=== PATIENT | female | born 1945 | race Caucasian/White ===

== ENCOUNTER 2018-07-21 13:26 | Emergency (ER) | payer SELFPAY ==
[2018-07-21 13:33] VITALS: BP 213/96; PULSE 81; RESP 15; TEMP 36.3; O2SAT 98; BMI 20.5
--- NOTE | 2018-07-21 13:36 | DI.RAD.S_ITS ---
PROCEDURE: XR TOE LT MIN 2V INDICATIONS: fell down stairs, great toe pain and swelling TECHNIQUE: 3 views of the 1st toe(s) acquired. COMPARISON: None. FINDINGS: Bones: No displaced fractures or dislocations. No suspicious bony lesions. Soft tissues: No suspicious soft tissue densities. IMPRESSION: No acute fractures of the left great toe. Dictated by: Shiva Salgado M.D. on 07/21/2018 at 13:01 Approved by: Shiva Salgado M.D. on 07/21/2018 at 13:02
--- NOTE | 2018-07-21 17:57 | ED_ITS ---
HPI - Extremity Injury (Lower) <Gabby Ch PA-C - Last Filed: 07/21/18 22:29> General Chief Complaint: Extremity Injury, Lower Stated Complaint: FELL ON STAIRS,POSS BROKEN TOE Time Seen by Provider: 07/21/18 16:02 Source: patient Mode of arrival: ambulatory Limitations: no limitations History of Present Illness HPI Narrative: This 72-year-old female states that she slipped on some steps this morning and hit her left great toe when she fell. She states that she landed on her bottom. She denies any other injuries such as head contusion, LOC, or neck pain. She states that her right shoulder is just a little bit sore, which she thinks is due to reaching out trying to grab the railing on the way down. She came in due to concern for possible fracture in the toe as it is painful to bear weight. 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 She states her blood pressure is always elevated. Related Data Allergies Allergy/AdvReac Type Severity Reaction Status Date / Time Sulfa (Sulfonamide Allergy Severe ANAPHYLAXIS Verified 07/21/18 13:33 Antibiotics) Review of Systems <Gabby Ch PA-C - Last Filed: 07/21/18 22:29> Review of Systems ROS Unobtainable: All systems reviewed & are unremarkable except as noted in HPI and below PFSH <Gabby Ch PA-C - Last Filed: 07/21/18 22:29> Medical History H/O: HTN (hypertension) (Chronic) No pertinent family history (Chronic) Surgical History No pertinent past surgical history (Chronic) Social History Smoking Status: Former smoker Social History Smoking Status: Former smoker Exam <IVETTE Olivares Last Filed: 07/21/18 22:29> Narrative Exam Narrative: GENERAL APPEARANCE: Patient sitting comfortably, in no distress. LUNGS: Clear to auscultation bilaterally. HEART: Rate and rhythm regular without murmur, normal S1 and S2, no S3 or S4. MUSCULOSKELETAL: There is some joint deviation in the left foot toes. Left great toe is tender at the IP joint. No tenderness elsewhere over the toe. No tenderness elsewhere over the left metatarsals or ankle. She has full range of motion of the ankle, full dorsiflexion and plantar flexion of the toes against resistance. Achilles is intact by palpation and nontender. Mild tenderness over the right mid and superior trapezius musculature, no tenderness over bony prominences, full range of motion of the shoulder EXTREMITIES: No cyanosis, 1+ pitting noted bilaterally with some varicosities, no calf tenderness Initial Vital Signs Initial Vital Signs: Vital Signs Temperature 97.3 F L 07/21/18 13:33 Pulse Rate 81 07/21/18 13:33 Respiratory Rate 15 07/21/18 13:33 Blood Pressure 213/96 H 07/21/18 13:33 Pulse Oximetry 98 07/21/18 13:33 <DO Curt Jackson Last Filed: 07/22/18 02:48> Initial Vital Signs Initial Vital Signs: Vital Signs Temperature 97.3 F L 07/21/18 13:33 Pulse Rate 81 07/21/18 13:33 Respiratory Rate 15 07/21/18 13:33 Blood Pressure 213/96 H 07/21/18 13:33 Pulse Oximetry 98 07/21/18 13:33 Course <Gabby Ch PA-C - Last Filed: 07/21/18 22:29> Orders Ordered: ED Orders 07/21/18 13:36 XR toe LT min 2V Stat Vital Signs - 8 hr 07/21/18 18:20 Pulse Rate 73 Respiratory Rate 16 Blood Pressure [Left Arm] 229/108 H Pulse Oximetry 97 <DO Curt Jackson Last Filed: 07/22/18 02:48> Orders Ordered: ED Orders 07/21/18 13:36 XR toe LT min 2V Stat Vital Signs - 8 hr 07/21/18 18:20 Pulse Rate 73 Respiratory Rate 16 Blood Pressure [Left Arm] 229/108 H Pulse Oximetry 97 MDM - Extremity Injury (Lower) <IVETTE Olivares Last Filed: 07/21/18 22:29> Imaging Data foot: Radiologist's impression: Tiffany Yanez 72 F [address] [address] XRay Report Signed Patient: RenataTiffany RMR#: [id number] : [id number]:[id number] Age/Sex: 72 / FDate of Service: 07/21/18 Loc: ED Accession Number: [id number] Procedure: XR toe LT min 2V Ordering Provider: Juancarlos Orozco D.O. PROCEDURE: XR TOE LT MIN 2V INDICATIONS: fell down stairs, great toe pain and swelling TECHNIQUE: 3 views of the 1st toe(s) acquired. COMPARISON: None. FINDINGS: Bones: No displaced fractures or dislocations. No suspicious bony lesions. Soft tissues: No suspicious soft tissue densities. IMPRESSION: No acute fractures of the left great toe. Dictated by: Shiva Salgado M.D. on 07/21/2018 at 13:01 Approved by: Shiva Salgado M.D. on 07/21/2018 at 13:02 Discharge Plan Departure Patient Disposition: Home Clinical Impression: Contusion of great toe of left foot Qualifiers: Encounter type: initial encounter Damage to nail status: without damage Qualified Code(s): S90.112A - Contusion of left great toe without damage to nail, initial encounter Discharge Date/Time: 07/21/18 18:40 Interventions: ED Discharge Assessment Last Done: 07/21/18 18:39 Instructions: DI for Toe Sprain Activity Restrictions/Additional Instructions: Please return if you have any acutely worsening symptoms or new problems. There was no broken bones seen on your x-ray today, however sometimes as we talked about broken bones do not show on initial x-rays and if you are not better next week, repeat x-rays may be needed. Please use your herbal medicine if you need at home that usually use for pain, or you can take [id number] Tylenol. Please keep the toe tape as we showed you and wear the orthopedic shoe to help with pain whenever you are walking. Your blood pressure is quite high, and it is likely that you need to be back on blood pressure medication to help prevent problems associated with high blood pressure such as heart attack and stroke. Please call the [facility] and let them know that you were seen in the ED here and need follow-up (you can let them know that you saw me, I'm Gabby) and they should be able to see you next week to establish care and recheck the toe Referrals: [facility] [Provider Group] <Miley Botnick, DO - Last Filed: 07/22/18 02:48> Cosign ED Attending Cosignature Attestation: I was immediately available in the department for consultation. Documentation has been reviewed. I agree with assessment and plan.
[2018-07-21 18:20] VITALS: BP 229/108; PULSE 73; RESP 16; O2SAT 97
== END 2018-07-21 18:40 | disposition home or self-care (01) ==
PROVIDERS: Emergency Provider Internal Medicine
DX: S90.112A Contusion of left great toe without damage to nail, initial encounter (principal); W01.0XXA Fall on same level from slipping, tripping and stumbling without subsequent striking against object, initial encounter
CPT/HCPCS: 73660; 99282; 99283

== ENCOUNTER 2019-07-29 14:03 | Inpatient (IN) | payer MEDICARE, SELFPAY ==
[2019-07-29] VITALS (8 sets, daily range): BP systolic 149–211; BP diastolic 75–99; PULSE 83–119; RESP 19–35; TEMP 37.7–38.6; O2SAT 88–95; BMI 20.5
--- NOTE | 2019-07-29 14:25 | DI.RAD.S_ITS ---
PROCEDURE: XR CHEST 2V INDICATIONS: sob, fever cough TECHNIQUE: 2 views of the chest were acquired. COMPARISON: None. FINDINGS: Surgical changes and devices: None. Lungs and pleura: Increased attenuation is identified along the minor fissure on the right, which appears to represent airspace disease. There may be mild airspace disease at the left costophrenic angle at the retrocardiac region at the left lung base. Pulmonary hyperexpansion is present with flattening of the diaphragms and increased lucency within the retrosternal clear space, compatible with chronic obstructive pulmonary disease. No effusion or pneumothorax is evident. Mediastinum: Mediastinal contours are normal. Heart size is normal. There is a large soft tissue density with a fluid level identified overlying the mediastinum at the lung base. Bones and chest wall: No suspicious bony abnormalities. Soft tissues appear unremarkable. IMPRESSION: 1. Bibasilar infiltrates are suggestive of pneumonia. 2. Chronic obstructive pulmonary disease is suspected. 3. Prominent hiatal hernia. Dictated by: Shiva Salgado M.D. on 07/29/2019 at 13:49 Approved by: Shiva Salgado M.D. on 07/29/2019 at 13:50
[2019-07-29 15:03] LABS: Influenza A - CEPHEID Flu A NEGATIVE (NEGATIVE); Influenza B - CEPHEID Flu B NEGATIVE (NEGATIVE)
[2019-07-29] MEDS: ALBUTEROL/IPRATROPIUM 3 ML AMPUL INH (16:15)
[2019-07-29 16:55] LABS: Alanine Aminotransferase 17 IU/L (<35); Albumin Globulin Ratio 1.1 (1.0-2.8); Alkaline Phosphatase 89 U/L (38-126); Aspartate Aminotransferase 29 IU/L (14-36); Bilirubin Total 1.2 mg/dL (0.2-1.3); Blood Urea Nitrogen 14 mg/dL (7-17); Calcium 9.2 mg/dL (8.4-10.2); Carbon Dioxide 22 mmol/L (22-32); Chloride 100 mmol/L (98-107); Estimated Glomerular Filt Rate > 60.0 mL/min (>60); Globulin 3.6 g/dL (1.7-4.1); Glucose 95 mg/dL (80-110); HEMOLYSIS < 15 (0-50); Magnesium 2.2 mg/dL (1.6-2.3); Potassium 3.9 mmol/L (3.4-5.1); Sodium 138 mmol/L (137-145); Total Protein 7.6 g/dL (6.3-8.2)
[2019-07-29 16:57] LABS: Add Manual Diff / Slide Review NO; Basophils Absolute Auto 0 /uL (0-100); Basophils Percent Auto 0.1 % (0-2); Eosinophils Absolute Auto 0 /uL (0-450); Hematocrit 42.3 % (36-46); Hemoglobin 14.9 g/dL (12.0-16.0); Lymphocytes Absolute Auto 400 /uL (1100-4500); Lymphocytes Percent Auto 4.6 % (25-40); Mean Corpuscular HGB Conc 35.1 % (30-36); Mean Corpuscular Hemoglobin 33.1 PG (26-34); Mean Corpuscular Volume 94.3 fL (80-100); Monocytes Absolute Auto 600 /uL (0-900); Monocytes Percent Auto 6.4 % (3-14); Neutrophils Absolute Auto 7800 /uL (1500-7000); Neutrophils Percent Auto 88.9 % (50-75); Platelet Count 196 X10^3/uL (150-400); Red Blood Cell Count 4.49 X10^6/uL (4.0-5.2); Red Cell Distribution Width 12.6 % (11.6-14.8); White Blood Cell Count 8.7 X10^3/uL (4.5-11.0)
[2019-07-29 17:04] LABS: NT-proBNP (BNP-Adult 18+) 140 pg/mL (<125)
[2019-07-29 17:11] LABS: Procalcitonin 0.35 ng/mL (<0.5)
[2019-07-29] MEDS: methylPREDNISolone 125 MG/2 ML VIAL 80 MG IV (17:19)
[2019-07-29] MEDS: AZITHROMYCIN 500 MG in DEXTROSE 5% IN WATER 250 ML IV (17:20)
[2019-07-29] MEDS: CEFTRIAXONE 1 GM/50 ML FROZ.PIGGY IV ×2 (17:21→21:31)
[2019-07-29 17:55] LABS: Lactate (Lactic Acid) 1.2 mmol/L (0.7-2.1)
[2019-07-29] MEDS: KETOROLAC 60 MG/2 ML VIAL 30 MG IV (18:07)
--- NOTE | 2019-07-29 18:28 | ED_ITS ---
HPI - Fever <[facility] - Last Filed: 07/29/19 18:57> General Chief Complaint: Fever Stated Complaint: Flu Like Symptoms Time Seen by Provider: 07/29/19 15:53 Source: patient and family Mode of arrival: Ambulatory Limitations: no limitations History of Present Illness HPI Narrative: The patient is a 73-year-old female former smoker who denies pertinent medical history presents with a chief complaint of fever, cough and wheezing for the past week. She denies any history of COPD asthma or respiratory disease. She denies any medical history, surgical history or daily medications. 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 Daughter notes that she is supposed to be taking medication for high blood pressure, but has not done so in a very long time. She states she is having muscle aches, chills, and fevers. She has not taken an ything at home to feel better. She denies any abdominal pain, nausea vomiting or diarrhea. She states she is eating and drinking okay. She presents with her daughter, and her granddaughter comes to visit as well. Related Data Home Medications Medication Instructions Recorded Confirmed No Known Home Medications 07/29/19 07/29/19 Allergies Allergy/AdvReac Type Severity Reaction Status Date / Time Sulfa (Sulfonamide Allergy Severe ANAPHYLAXIS Verified 07/29/19 14:24 Antibiotics) Penicillins AdvReac Unknown unknown Unverified 07/29/19 18:03 Review of Systems <[facility] - Last Filed: 07/29/19 18:57> Review of Systems Narrative: GENERAL: See HPI HEENT: Denies sinus pain, ear pain, sore throat, difficulty swallowing, dizziness. RESPIRATORY: See HPI CARDIOVASCULAR: Denies chest pain, palpitations, orthopnea, edema, GASTROINTESTINAL: Denies nausea, vomiting, abdominal pain, diarrhea, constipation, melena. : Denies dysuria, frequency, incontinence, hematuria, urinary retention. MUSCULOSKELETAL: denies weakness, joint pain, or bony pain SKIN: Denies rash, skin lesions, or other NEUROLOGIC: Denies weakness, headache, numbness, change in speech, confusion, seizures, incoordination. PSYCHIATRIC: No concerning psychosocial issues. 12 point review of systems is negative except for those stated above Patient History <[facility] - Last Filed: 07/29/19 18:57> Medical History H/O: HTN (hypertension) (Chronic) Palpitations (Acute) Surgical History No pertinent past surgical history (Chronic) Family History (Updated 07/29/19 @ 21:50 by SLOANE Hoffmann) Father Cardiac disease Mother No significant medical problems Social History (Updated 07/21/18 @ 18:30 by Gabby Ch PA-C) household members: family Smoking Status: Former smoker Smoking Status: Former smoker alcohol intake frequency: holidays/special occasions only Substance Use Type: does not use Exam <Lizbeth ClearyKEISHA-BC - Last Filed: 07/29/19 18:57> Narrative Exam Narrative: GENERAL: Elderly female lying on stretcher, appears fatigued HEAD: Atraumatic. Normocephalic. No temporal or scalp tenderness. EYES: Pupils equal round and reactive. Extraocular motions intact. No scleral icterus. No injection or drainage. ENT: Nose without bleeding, purulent drainage or septal hematoma. Throat without erythema, tonsillar hypertrophy or exudate. Uvula midline. Airway patent. NECK: Trachea midline. No JVD or lymphadenopathy. Supple, nontender, no meningeal signs. CARDIOVASCULAR: Tachycardic rate and i regular rhythm RESPIRATORY: Coarse bilaterally to auscultation. Posterior crackles bilateral lower lobes. Tachypneic. Not speaking full sentences. Profuse loose sounding cough. GASTROINTESTINAL: Abdomen soft, non-tender, nondistended. No hepato- splenomegaly, or palpable masses. No guarding. Active bowel sounds all 4 quadrants. EXTREMITIES: No clubbing, cyanosis, or edema. No joint tenderness, effusion, or edema noted. BACK: Nontender without deformity or crepitance. No flank tenderness. NEURO: AOx3. SKIN: No rash or erythema on visible skin Initial Vital Signs Initial Vital Signs: Vital Signs Temperature 101.4 F H 07/29/19 14:18 Pulse Rate 119 H 07/29/19 14:18 Respiratory Rate 20 07/29/19 14:18 Blood Pressure 211/99 H 07/29/19 14:18 Pulse Oximetry 91 07/29/19 14:18 <Juancarlos Orozco DO - Last Filed: 07/30/19 07:21> Initial Vital Signs Initial Vital Signs: Vital Signs Temperature 101.4 F H 07/29/19 14:18 Pulse Rate 119 H 07/29/19 14:18 Respiratory Rate 07/29/19 14:18 Blood Pressure 211/99 H 07/29/19 14:18 Pulse Oximetry 91 07/29/19 14:18 Scores <KAREN Myrick - Last Filed: 07/29/19 18:57> CURB-65 Confusion: No BUN >19mg/dL (>7mmol/L): No Respiratory rate greater or equal to 30: Yes SBP <90mmHg or DBP less or equal to 60mmHg: No Age 65 or Older: Yes CURB-65 Total: 2 Score 0-1 Outpatient care, Score 2 Inpt vs. Obs, Score 3 or over Inpt admit with ICU for score of 4-5 Course <KAREN Myrick - Last Filed: 07/29/19 18:57> Orders Ordered: Acetaminophen (Tylenol) 650 mg PO Q6HR PRN PRN Reason: Fever/Mild Pain (1-3) Al Hydrox/Mg Hydrox/Simethicone (Maalox Plus) 30 ml PO Q6HR PRN PRN Reason: Dyspepsia Albuterol (Ventolin) 2.5 mg INH [id number] PRN PRN Reason: Shortness Of Breath Or Wheezing Albuterol/Ipratropium (Duoneb) 3 ml INH RTQ6HR PRN PRN Reason: Shortness Of Breath Or Wheezing Bisacodyl (Dulcolax) 10 mg IN DAILY PRN PRN Reason: Constipation Calcium Carbonate (Tums) 1,000 mg PO Q4HR PRN PRN Reason: Dyspepsia Docusate Sodium (Colace) 100 mg PO BID PRN PRN Reason: Constipation Enoxaparin Sodium (Lovenox) 40 mg SUBCUT DAILY [facility] Ceftriaxone Sodium/Dextrose (Rocephin) 2 gm in 50 mls @ 100 mls/hr IV Q24H JOVANA Azithromycin 500 mg/ Dextrose 250 mls @ 250 mls/hr IV Q24H JOVANA Stop: 07/31/19 18:59 Naloxone HCl (Narcan) 0.2 mg IV Q2MIN PRN PRN Reason: Opiate Reversal Ondansetron HCl (Zofran) 4 mg IV Q8HR PRN PRN Reason: Nausea And Vomiting Oxycodone HCl (Percolone) 5 mg PO Q6HR PRN PRN Reason: Pain, Moderate (4-6) Discontinued Medications Albuterol/Ipratropium (Duoneb) 3 ml INH NOW ONE Stop: 07/29/19 16:02 Last Admin: 07/29/19 16:15 Dose: 3 ml Documented by: FRANCISCO Ceftriaxone Sodium/Dextrose (Rocephin) 1 gm in 50 mls @ 100 mls/hr IV NOW ONE Stop: 07/29/19 17:16 Last Infusion: 07/29/19 18:10 Dose: 0 mls/hr Documented by: Admin: 07/29/19 17:21 Dose: 100 mls/hr Documented by: MEISENB Azithromycin 500 mg/ Dextrose 250 mls @ 250 mls/hr IV NOW ONE Stop: 07/29/19 17:00 Last Infusion: 07/29/19 18:34 Dose: 0 mls/hr Documented by: Admin: 07/29/19 17:20 Dose: 250 mls/hr Documented by: MEISENB Sodium Chloride (Normal Saline 0.9%) 1,000 mls @ 150 mls/hr IV CONT JOVANA Last Infusion: 07/29/19 21:32 Dose: 0 mls/hr Documented by: Admin: 07/29/19 19:46 Dose: 150 mls/hr Documented by: GPEREZ Sodium Chloride (Normal Saline 0.9%) 500 mls @ 1,000 mls/hr IV BOLUS ONE Stop: 07/29/19 18:47 Last Infusion: 07/29/19 18:49 Dose: 1,000 mls/hr Documented by: Admin: 07/29/19 18:38 Dose: 1,000 mls/hr Documented by: MEISENB Sodium Chloride (Normal Saline 0.9%) 1,000 mls @ 100 mls/hr IV CONT JOVANA Last Admin: 07/29/19 21:32 Dose: 100 mls/hr Documented by: GPEREZ Azithromycin 500 mg/ Dextrose 250 mls @ 250 mls/hr IV Q24H JOVANA Stop: 07/30/19 20:16 Last Admin: 07/29/19 22:03 Dose: Not Given Documented by: JEISON Ceftriaxone Sodium/Dextrose (Rocephin) 1 gm in 50 mls @ 100 mls/hr IV NOW ONE Stop: 07/29/19 20:42 Last Infusion: 07/29/19 22:01 Dose: 0 mls/hr Documented by: Admin: 07/29/19 21:31 Dose: 100 mls/hr Documented by: JEISON Ceftriaxone Sodium/Dextrose (Rocephin) 1 gm in 50 mls @ 100 mls/hr IV NOW ONE Stop: 07/29/19 22:34 Last Admin: 07/29/19 23:20 Dose: Not Given Documented by: JEISON Ketorolac Tromethamine (Toradol) 30 mg IV NOW ONE Stop: 07/29/19 17:44 Last Admin: 07/29/19 18:07 Dose: 30 mg Documented by: MIKE Methylprednisolone (Solu-Medrol 125 Mg Vial) 80 mg IV NOW ONE Stop: 07/29/19 16:47 Last Admin: 07/29/19 17:19 Dose: 80 mg Documented by: MIKE Vital Signs Vital signs: Vital Signs - 8 hr 07/29/19 14:18 07/29/19 16:15 07/29/19 16:18 Temperature 101.4 F H 100.1 F H Pulse Rate 119 H 107 H Respiratory Rate 20 Blood Pressure 211/99 H Blood Pressure [Left Arm] 189/83 H Pulse Oximetry 91 88 L 90 L 07/29/19 16:23 07/29/19 16:38 07/29/19 17:55 Temperature 101.1 F H Pulse Rate 112 H 109 H 103 H Respiratory Rate 22 35 H 28 H Blood Pressure Blood Pressure [Left Arm] 168/75 H 170/77 H Pulse Oximetry 93 92 <Juancarlos Orozco DO - Last Filed: 07/30/19 07:21> Orders Ordered: Acetaminophen (Tylenol) 650 mg PO Q6HR PRN PRN Reason: Fever/Mild Pain (1-3) Al Hydrox/Mg Hydrox/Simethicone (Maalox Plus) 30 ml PO Q6HR PRN PRN Reason: Dyspepsia Albuterol (Ventolin) 2.5 mg INH [id number] PRN PRN Reason: Shortness Of Breath Or Wheezing Albuterol/Ipratropium (Duoneb) 3 ml INH RTQ6HR PRN PRN Reason: Shortness Of Breath Or Wheezing Bisacodyl (Dulcolax) 10 mg IN DAILY PRN PRN Reason: Constipation Calcium Carbonate (Tums) 1,000 mg PO Q4HR PRN PRN Reason: Dyspepsia Docusate Sodium (Colace) 100 mg PO BID PRN PRN Reason: Constipation Enoxaparin Sodium (Lovenox) 40 mg SUBCUT DAILY [facility] Ceftriaxone Sodium/Dextrose (Rocephin) 2 gm in 50 mls @ 100 mls/hr IV Q24H JOVANA Azithromycin 500 mg/ Dextrose 250 mls @ 250 mls/hr IV Q24H [facility] Stop: 07/31/19 18:59 Naloxone HCl (Narcan) 0.2 mg IV Q2MIN PRN PRN Reason: Opiate Reversal Ondansetron HCl (Zofran) 4 mg IV Q8HR PRN PRN Reason: Nausea And Vomiting Oxycodone HCl (Percolone) 5 mg PO Q6HR PRN PRN Reason: Pain, Moderate (4-6) Discontinued Medications Albuterol/Ipratropium (Duoneb) 3 ml INH NOW ONE Stop: 07/29/19 16:02 Last Admin: 07/29/19 16:15 Dose: 3 ml Documented by: FRANCISCO Ceftriaxone Sodium/Dextrose (Rocephin) 1 gm in 50 mls @ 100 mls/hr IV NOW ONE Stop: 07/29/19 17:16 Last Infusion: 07/29/19 18:10 Dose: 0 mls/hr Documented by: Admin: 07/29/19 17:21 Dose: 100 mls/hr Documented by: MIKE Azithromycin 500 mg/ Dextrose 250 mls @ 250 mls/hr IV NOW ONE Stop: 07/29/19 17:00 Last Infusion: 07/29/19 18:34 Dose: 0 mls/hr Documented by: Admin: 07/29/19 17:20 Dose: 250 mls/hr Documented by: MIKE Sodium Chloride (Normal Saline 0.9%) 1,000 mls @ 150 mls/hr IV CONT JOVANA Last Infusion: 07/29/19 21:32 Dose: 0 mls/hr Documented by: Admin: 07/29/19 19:46 Dose: 150 mls/hr Documented by: JEISON Sodium Chloride (Normal Saline 0.9%) 500 mls @ 1,000 mls/hr IV BOLUS ONE Stop: 07/29/19 18:47 Last Infusion: 07/29/19 18:49 Dose: 1,000 mls/hr Documented by: Admin: 07/29/19 18:38 Dose: 1,000 mls/hr Documented by: MIKE Sodium Chloride (Normal Saline 0.9%) 1,000 mls @ 100 mls/hr IV CONT JOVANA Last Admin: 07/29/19 21:32 Dose: 100 mls/hr Documented by: JEISON Azithromycin 500 mg/ Dextrose 250 mls @ 250 mls/hr IV Q24H JOVANA Stop: 07/30/19 20:16 Last Admin: 07/29/19 22:03 Dose: Not Given Documented by: JEISON Ceftriaxone Sodium/Dextrose (Rocephin) 1 gm in 50 mls @ 100 mls/hr IV NOW ONE Stop: 07/29/19 20:42 Last Infusion: 07/29/19 22:01 Dose: 0 mls/hr Documented by: Admin: 07/29/19 21:31 Dose: 100 mls/hr Documented by: JEISON Ceftriaxone Sodium/Dextrose (Rocephin) 1 gm in 50 mls @ 100 mls/hr IV NOW ONE Stop: 07/29/19 22:34 Last Admin: 07/29/19 23:20 Dose: Not Given Documented by: JEISON Ketorolac Tromethamine (Toradol) 30 mg IV NOW ONE Stop: 07/29/19 17:44 Last Admin: 07/29/19 18:07 Dose: 30 mg Documented by: MIKE Methylprednisolone (Solu-Medrol 125 Mg Vial) 80 mg IV NOW ONE Stop: 07/29/19 16:47 Last Admin: 07/29/19 17:19 Dose: 80 mg Documented by: MIKE Vital Signs Vital signs: Vital Signs - 8 hr 07/29/19 14:18 07/29/19 16:15 07/29/19 16:18 Temperature 101.4 F H 100.1 F H Pulse Rate 119 H 107 H Respiratory Rate 20 Blood Pressure 211/99 H Blood Pressure [Left Arm] 189/83 H Pulse Oximetry 91 88 L 90 L 07/29/19 16:23 07/29/19 16:38 07/29/19 17:55 Temperature 101.1 F H Pulse Rate 112 H 109 H 103 H Respiratory Rate 22 35 H 28 H Blood Pressure Blood Pressure [Left Arm] 168/75 H 170/77 H Pulse Oximetry 93 92 MDM - Fever <Lizbeth Dunlapmer, LEGAL RECORDS CLERK- - Last Filed: 07/29/19 18:57> Lab Data Result diagrams: 07/30/19 05:29 07/30/19 05:29 Labs: Lab Results 07/29/19 07/29/19 07/29/19 Range/Units 14:28 16:20 16:25 WBC (4.5-11.0) X10^3/uL RBC (4.0-5.2) X10^6/uL Hgb (12.0-16.0) g/dL Hct (36-46) % MCV (80-100) fL MCH (26-34) PG MCHC (30-36) % RDW (11.6-14.8) % Plt Count (150-400) X10^3/uL Neut % (Auto) (50-75) % Lymph % (Auto) (25-40) % [place] % (Auto) (3-14) % Eos % (Auto) (2-4) % Baso % (Auto) (0-2) % Neut # (Auto) (9635-2613) /uL Lymph # (Auto) (1390-5120) /uL [place] # (Auto) (0-900) /uL Eos # (Auto) (0-450) /uL Baso # (Auto) (0-100) /uL Sodium (137-145) mmol/L Potassium (3.4-5.1) mmol/L Chloride (98-107) mmol/L Carbon Dioxide (22-32) mmol/L BUN (7-17) mg/dL Creatinine (0.52-1.04) mg/dL Estimated GFR (>60) mL/min BUN/Creatinine Ratio (6-22) Glucose (80-110) mg/dL Lactate 1.2 (0.7-2.1) mmol/L Calcium (8.4-10.2) mg/dL Magnesium (1.6-2.3) mg/dL Total Bilirubin (0.2-1.3) mg/dL AST (14-36) IU/L ALT (<35) IU/L Alkaline Phosphatase (38-126) U/L NT-Pro-B Natriuret Pep 140 H (<125) pg/mL Total Protein (6.3-8.2) g/dL Albumin (3.5-5.0) g/dL Globulin (1.7-4.1) g/dL Albumin/Globulin Ratio (1.0-2.8) Procalcitonin (<0.5) ng/mL Influenza A (RT-PCR) Flu a negative (NEGATIVE) Influenza B (RT-PCR) Flu b negative (NEGATIVE) 07/29/19 07/29/19 07/29/19 Range/Units 16:25 16:25 16:25 WBC 8.7 (4.5-11.0) X10^3/uL RBC 4.49 (4.0-5.2) X10^6/uL Hgb 14.9 (12.0-16.0) g/dL Hct 42.3 (36-46) % MCV 94.3 (80-100) fL MCH 33.1 (26-34) PG MCHC 35.1 (30-36) % RDW 12.6 (11.6-14.8) % Plt Count 196 (150-400) X10^3/uL Neut % (Auto) 88.9 H (50-75) % Lymph % (Auto) 4.6 L (25-40) % [place] % (Auto) 6.4 (3-14) % Eos % (Auto) 0.0 L (2-4) % Baso % (Auto) 0.1 (0-2) % Neut # (Auto) 7800 H (5452-0258) /uL Lymph # (Auto) 400 L (0141-5658) /uL [place] # (Auto) 600 (0-900) /uL Eos # (Auto) 0 (0-450) /uL Baso # (Auto) 0 (0-100) /uL Sodium 138 (137-145) mmol/L Potassium 3.9 (3.4-5.1) mmol/L Chloride 100 (98-107) mmol/L Carbon Dioxide 22 (22-32) mmol/L BUN 14 (7-17) mg/dL Creatinine 0.70 (0.52-1.04) mg/dL Estimated GFR > 60.0 (>60) mL/min BUN/Creatinine Ratio 20.0 (6-22) Glucose 95 (80-110) mg/dL Lactate (0.7-2.1) mmol/L Calcium 9.2 (8.4-10.2) mg/dL Magnesium 2.2 (1.6-2.3) mg/dL Total Bilirubin 1.2 (0.2-1.3) mg/dL AST 29 (14-36) IU/L ALT 17 (<35) IU/L Alkaline Phosphatase 89 (38-126) U/L NT-Pro-B Natriuret Pep (<125) pg/mL Total Protein 7.6 (6.3-8.2) g/dL Albumin 4.0 (3.5-5.0) g/dL Globulin 3.6 (1.7-4.1) g/dL Albumin/Globulin Ratio 1.1 (1.0-2.8) Procalcitonin 0.35 (<0.5) ng/mL Influenza A (RT-PCR) (NEGATIVE) Influenza B (RT-PCR) (NEGATIVE) Imaging Data Chest x-ray: Radiologist's Impression: [address] [place], [place] [id number] XRay Report Signed Patient: Tiffany Yanez RMR#: [id number] : 7Acct:[id number] Age/Sex: 73 / FDate of Service: 07/29/19 Loc: ED Accession Number: [id number] Procedure: XR chest 2V Ordering Provider: Juancarlos Orozco D.O. PROCEDURE: XR CHEST 2V INDICATIONS: sob, fever cough TECHNIQUE: 2 views of the chest were acquired. COMPARISON: None. FINDINGS: Surgical changes and devices: None. Lungs and pleura: Increased attenuation is identified along the minor fissure on the right, which appears to represent airspace disease. There may be mild airspace disease at the left costophrenic angle at the retrocardiac region at the left lung base. Pulmonary hyperexpansion is present with flattening of the diaphragms and increased lucency within the retrosternal clear space, compatible with chronic obstructive pulmonary disease. No effusion or pneumothorax is evident. Mediastinum: Mediastinal contours are normal. Heart size is normal. There is a large soft tissue density with a fluid level identified overlying the mediastinum at the lung base. Bones and chest wall: No suspicious bony abnormalities. Soft tissues appear unremarkable. IMPRESSION: 1. Bibasilar infiltrates are suggestive of pneumonia. 2. Chronic obstructive pulmonary disease is suspected. 3. Prominent hiatal hernia. Dictated by: Shiva Salgado M.D. on 07/29/2019 at 13:49 Approved by: Shiva Salgado M.D. on 07/29/2019 at 13:50 [facility] Narrative Medical decision making narrative: The patient is a 73-year-old female who presents with a chief complaint of fever, productive cough and wheezing for the past week. Influenza is negative. Chest x-ray indicates bibasilar pneumonia. Patient is tachypneic, with shortness of breath on exam. Her initial room oxygen was 90%, then while waiting to come back to the emergency department her oxygen decreased. Upon arrival to her room she was 87-88% on room air, even with breathing could itching. She was initiated on 2 L nasal cannula. She was given nebulizers and evaluated by respiratory therapy. She was given Solu- Medrol. She does negative for the flu, but viral panel is pending. Given that the patient has a community-acquired pneumonia with no recent hospitalizations I did initiate treatment with Rocephin and azithromycin. Given that the patient is hypoxic on room air, as well as score of 2 due to age and tachypnea I contacted Dr. Calloway who kindly agreed to admit the patient for observation overnight. Patient and her family are in accordance with this and very appre ciative <Juancarlos Orozco, - Last Filed: 07/30/19 07:21> Lab Data Labs: Lab Results 07/29/19 07/29/19 07/29/19 Range/Units 14:28 16:20 16:25 WBC (4.5-11.0) X10^3/uL RBC (4.0-5.2) X10^6/uL Hgb (12.0-16.0) g/dL Hct (36-46) % MCV (80-100) fL MCH (26-34) PG MCHC (30-36) % RDW (11.6-14.8) % Plt Count (150-400) X10^3/uL Neut % (Auto) (50-75) % Lymph % (Auto) (25-40) % [place] % (Auto) (3-14) % Eos % (Auto) (2-4) % Baso % (Auto) (0-2) % Neut # (Auto) (8584-6587) /uL Lymph # (Auto) (9518-1857) /uL [place] # (Auto) (0-900) /uL Eos # (Auto) (0-450) /uL Baso # (Auto) (0-100) /uL Sodium (137-145) mmol/L Potassium (3.4-5.1) mmol/L Chloride (98-107) mmol/L Carbon Dioxide (22-32) mmol/L BUN (7-17) mg/dL Creatinine (0.52-1.04) mg/dL Estimated GFR (>60) mL/min BUN/Creatinine Ratio (6-22) Glucose (80-110) mg/dL Lactate 1.2 (0.7-2.1) mmol/L Calcium (8.4-10.2) mg/dL Magnesium (1.6-2.3) mg/dL Total Bilirubin (0.2-1.3) mg/dL AST (14-36) IU/L ALT (<35) IU/L Alkaline Phosphatase (38-126) U/L NT-Pro-B Natriuret Pep 140 H (<125) pg/mL Total Protein (6.3-8.2) g/dL Albumin (3.5-5.0) g/dL Globulin (1.7-4.1) g/dL Albumin/Globulin Ratio (1.0-2.8) Procalcitonin (<0.5) ng/mL Influenza A (RT-PCR) Flu a negative (NEGATIVE) Influenza B (RT-PCR) Flu b negative (NEGATIVE) 07/29/19 07/29/19 07/29/19 Range/Units 16:25 16:25 16:25 WBC 8.7 (4.5-11.0) X10^3/uL RBC 4.49 (4.0-5.2) X10^6/uL Hgb 14.9 (12.0-16.0) g/dL Hct 42.3 (36-46) % MCV 94.3 (80-100) fL MCH 33.1 (26-34) PG MCHC 35.1 (30-36) % RDW 12.6 (11.6-14.8) % Plt Count 196 (150-400) X10^3/uL Neut % (Auto) 88.9 H (50-75) % Lymph % (Auto) 4.6 L (25-40) % [place] % (Auto) 6.4 (3-14) % Eos % (Auto) 0.0 L (2-4) % Baso % (Auto) 0.1 (0-2) % Neut # (Auto) 7800 H (8638-9755) /uL Lymph # (Auto) 400 L (0381-1798) /uL [place] # (Auto) 600 (0-900) /uL Eos # (Auto) 0 (0-450) /uL Baso # (Auto) 0 (0-100) /uL Sodium 138 (137-145) mmol/L Potassium 3.9 (3.4-5.1) mmol/L Chloride 100 (98-107) mmol/L Carbon Dioxide 22 (22-32) mmol/L BUN 14 (7-17) mg/dL Creatinine 0.70 (0.52-1.04) mg/dL Estimated GFR > 60.0 (>60) mL/min BUN/Creatinine Ratio 20.0 (6-22) Glucose 95 (80-110) mg/dL Lactate (0.7-2.1) mmol/L Calcium 9.2 (8.4-10.2) mg/dL Magnesium 2.2 (1.6-2.3) mg/dL Total Bilirubin 1.2 (0.2-1.3) mg/dL AST 29 (14-36) IU/L ALT 17 (<35) IU/L Alkaline Phosphatase 89 (38-126) U/L NT-Pro-B Natriuret Pep (<125) pg/mL Total Protein 7.6 (6.3-8.2) g/dL Albumin 4.0 (3.5-5.0) g/dL Globulin 3.6 (1.7-4.1) g/dL Albumin/Globulin Ratio 1.1 (1.0-2.8) Procalcitonin 0.35 (<0.5) ng/mL Influenza A (RT-PCR) (NEGATIVE) Influenza B (RT-PCR) (NEGATIVE) Discharge Plan Departure Patient Disposition: Admitted as Observation Clinical Impression: Hypoxia Community acquired pneumonia Qualifiers: Laterality: unspecified laterality Qualified Code(s): J18.9 - Pneumonia, unspecified organism Discharge Date/Time: 07/29/19 18:55 Admit Date/Time: 07/29/19 18:11 Admit Provider: Tomer Calloway
[2019-07-29] MEDS: SODIUM CHLORIDE 0.9% 500 ML 1000 ML IV (18:38)
--- NOTE | 2019-07-29 19:22 | PC.ADMIT ---
[address] Admission Note: The patient,Tiffany Yanez,73 y/o, was given written information regarding hospital policies, unit procedures and contact persons. Pt arrived from ED via stretcher. Ambulated over to bed from stretcher. Pt reports feeling weak. Denies pain. Oriented to room and call system. Bed alarm on for safety. Supportive dtr Jessie at bedside. Patient's smoking status: Former smoker. Vital Signs - 8 hr 07/29/19 14:18 07/29/19 16:15 07/29/19 16:18 Temperature 101.4 F H 100.1 F H Pulse Rate 119 H 107 H Respiratory Rate 20 Blood Pressure 211/99 H Blood Pressure [Left Arm] 189/83 H Pulse Oximetry 91 88 L 90 L 07/29/19 16:23 07/29/19 16:38 07/29/19 17:55 Temperature 101.1 F H Pulse Rate 112 H 109 H 103 H Respiratory Rate 22 35 H 28 H Blood Pressure Blood Pressure [Left Arm] 168/75 H 170/77 H Pulse Oximetry 93 92 07/29/19 19:00 Temperature 100 F H Pulse Rate 87 Respiratory Rate 19 Blood Pressure 149/89 H Blood Pressure [Left Arm] Pulse Oximetry 95
[2019-07-29] MEDS: SODIUM CHLORIDE 0.9% 1,000 ML 150 ML IV (19:46)
[2019-07-29 20:18] LABS: Adenovirus Not Detected (Not Detect); Bordetella pertussis Not Detected (Not Detect); Chlamydophila pneumoniae Not Detected (Not Detect); Coronavirus 229E Not Detected (Not Detect); Coronavirus HKU1 Not Detected (Not Detect); Coronavirus NL 63 Not Detected (Not Detect); Coronavirus OC43 Not Detected (Not Detect); Human Metapneumovirus Not Detected (Not Detect); Human Rhinovirus/Enterovirus Not Detected (Not Detect); Influenza A Not Detected (Not Detect); Influenza B Not Detected (Not Detect); Mycoplasma pneumoniae Not Detected (Not Detect); Parainfluenza Virus 1 Not Detected (Not Detect); Parainfluenza Virus 2 Not Detected (Not Detect); Parainfluenza Virus 3 Not Detected (Not Detect); Parainfluenza Virus 4 Not Detected (Not Detect); Respiratory Syncytial Virus Detected (Not Detect)
[2019-07-29] MEDS: SODIUM CHLORIDE 0.9% 1,000 ML 100 ML IV (21:32)
--- NOTE | 2019-07-29 21:38 | P.HP_ITS ---
History of Present Illness History of Present Illness Date Patient Seen: 07/29/19 Time Patient Seen: 20:45 Chief complaint: Flu Like Symptoms Narrative: Ms. Tiffany Yanez is a 73-year-old female who appears older than her stated age with a significant medical history only for hypertension there presents to the hospital for shortness of breath. The patient complains of progressive symptoms of shortness of breath with a cough productive for yellow sputum with associated fevers and chills and right chest wall pain that is mildly pleuritic. Patient is a past heavy smoker with an estimated 90 pack year history. She reports no other sick contacts and denies nasal congestion or sore throat headache or dizziness. She has chest pain as above and endorses a h istory of palpitations. She has had increasing shortness of breath with cough is above but denies wheezing. She reports no abdominal pain, heartburn, nausea or vomiting. She denies complaints of constipation or diarrhea. She does have a history of urinary urgency and stress incontinence for which she uses depends. She is independent in her ADLs the family endorses general health decline over the last year with increased forgetfulness and decreased mobility. 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 Upon arrival to the ER the patient is febrile at 101.4, tachycardic at 119, hypertensive a 211/99 with respiratory rate of 28 saturating 88-90 % on room air. The patient is admitted treated nasal cannula oxygen at 2 L with a decreased heart rate to 103 blood pressure improved to 170/77 and oxygen saturation up to 92%. Chest x-ray obtained which shows by basilar infiltrates consistent with pneumonia, image suggestive of COPD and a prominent hiatal hernia. No EKG was obtained in the ER. On laboratory analysis shows white count of 8.7, hemoglobin of 14.9, hematocrit of 42.3 and platelets of 196. She has increased neutrophil count 89%. Her electrolytes are within normal limits and she has a BUN of 14 and creatinine 0.7 and nonfasting glucose of 95. Her liver function tests are within normal limits. Her her lactic acid is 1.2, pro calcitonin is 0.35, her flu test is negative and proBNP is 140. In the ER the patient received an albuterol nebulizer treatment Solu-Medrol 80 mg IV and Toradol. She started on Rocephin 1 g IV and Zithromax 500 mg IV. The patient is admitted to the medicine service for community-acquired pneumonia. Patient History Medical History H/O: HTN (hypertension) (Chronic) Palpitations (Acute) Surgical History No pertinent past surgical history (Chronic) Family & Social History Family History (Updated 07/29/19 @ 21:50 by SLOANE Hoffmann) Father Cardiac disease Mother No significant medical problems Social History: household members family Prior Living Arrangements Apartment/Condo Safety & Behavioral: Feels Safe in Current Yes Environment Been Physically Hurt or No Threatened By a Person Suicidal Ideation Description None Suicide Plan Description No Plan Tobacco & Substance use: Tobacco type cigarettes Smoking Status Former smoker Smoking packs per day 2 alcohol intake frequency holiday/special occasion Substance Use Type does not use Comment: The patient has been for many years and lives in a duplex with 2 granddaughters and daughter. She states her father had been in poor health for long time with heart problems. She describes mother is being very healthy passing away fold age. She has 1 brother 1 sister and 2 children but is unaware their health issues. She indicates no family history of diabetes cancer or cardiovascular disease other than her father. 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 Smoking: The patient quit smoking approximately 10 years ago before which she smoked 3 packs per day for approximately 90-100 pack year history. Alcohol: Patient consumed alcohol in the remote past but did states she drinks no longer. Substance use: The patient denies recreational pharmaceuticals, herbal or cannabis products. Advanced directives: The patient has no advanced directives but states her desire to be FULL CODE. She designates her daughter Sofi to be her surrogate decision maker. Meds Home Medications and Allergies Home Medications Medication Instructions Recorded Confirmed Type No Known Home Medications 07/29/19 07/29/19 History Allergies Allergy/AdvReac Type Severity Reaction Status Date / Time Sulfa (Sulfonamide Allergy Severe ANAPHYLAXIS Verified 07/29/19 14:24 Antibiotics) Penicillins AdvReac Unknown unknown Unverified 07/29/19 18:03 Review of Systems Review of Systems Narrative: All systems reviewed and found unremarkable under discussed in the HPI above. Exam Vital Signs (past 8 hours): - 07/29/19 14:18 02/22/20 16:15 07/29/19 16:18 Temperature 101.4 F H 100.1 F H Pulse Rate 119 H 107 H Respiratory Rate 20 Blood Pressure 211/99 H Blood Pressure [Left Arm] 189/83 H Pulse Oximetry 91 88 L 90 L 07/29/19 16:23 07/29/19 16:38 07/29/19 17:55 Temperature 101.1 F H Pulse Rate 112 H 109 H 103 H Respiratory Rate 22 35 H 28 H Blood Pressure Blood Pressure [Left Arm] 168/75 H 170/77 H Pulse Oximetry 93 92 07/29/19 19:00 Temperature 100 F H Pulse Rate 87 Respiratory Rate 19 Blood Pressure 149/89 H Blood Pressure [Left Arm] Pulse Oximetry 95 Oxygen Delivery Method Nasal Cannula Oxygen Flow Rate 2 Narrative Exam Narrative: GENERAL APPEARANCE: well developed, frail-appearing woman who appears older than her stated age with mild dyspnea. HEENT: Normocephalic, PERRLA, conjunctiva clear, sclera anicteric, EOMs intact without nystagmus, no rhinorrhea, mucous membranes are moist and pink without lesions or exudate. NECK/THYROID: neck supple, no JVD, no carotid bruit, no thyromegaly, trachea midline. LYMPH NODES: no cervical or supraclavicular lymphadenopathy. SKIN: [place], warm and dry, no visible lesions, rashes, ulcerations or petechiae. HEART: regular rate and rhythm, S1-S2, subtle systolic murmur, no rubs or gallops, brisk capillary refill, trace bilateral pedal edema LUNGS: Coarse central and lower breath sounds with bibasilar crackles posteriorly, and expiratory wheezing bilaterally, cough present CHEST: Symmetrical movement, no accessory muscle use, good tidal volume no chest pain with AP and lateral compression. ABDOMEN: Soft, no distention, no abdominal tenderness, no guarding or peritoneal signs, no organomegaly, no flank or suprapubic tenderness, active bowel tones. BACK: Normal curvature, nontender to palpation, no CVA tenderness on percussion, no back pain with straight leg lift EXTREMITIES: moves all extremities, strength is 5/5 and symmetrical, no deformities or joint effusions. NEUROLOGIC: AAO x3, cranial nerves II-XII grossly intact, impaired recall, sensation intact to light touch, hearing grossly normal to speech. PSYCH: Good eye contact, tangental thought process, cooperative, appropriate with stable behavior Objective Labs Result Diagrams: 07/29/19 16:25 07/29/19 16:25 Labs: Laboratory Results - last 24 hr 07/29/19 07/29/19 07/29/19 14:28 16:20 16:25 WBC RBC Hgb Hct MCV MCH MCHC RDW Plt Count Neut % (Auto) Lymph % (Auto) [place] % (Auto) Eos % (Auto) Baso % (Auto) Neut # (Auto) Lymph # (Auto) [place] # (Auto) Eos # (Auto) Baso # (Auto) Sodium Potassium Chloride Carbon Dioxide BUN Creatinine Estimated GFR BUN/Creatinine Ratio Glucose Lactate 1.2 Calcium Magnesium Total Bilirubin AST ALT Alkaline Phosphatase NT-Pro-B Natriuret Pep 140 H Total Protein Albumin Globulin Albumin/Globulin Ratio Procalcitonin Chlamy pneumoniae PCR Adenovirus (PCR) B.parapertussis DNA PCR Coronavirus OC43 (PCR) Coronavirus HKU1 (PCR) Coronavirus 229E (PCR) Coronavirus NL63 (PCR) Human Metapneumovir PCR Influenza A (RT-PCR) Flu a negative Influenza Type A (PCR) Influenza B (RT-PCR) Flu b negative Influenza Type B (PCR) M. pneumoniae (PCR) Parainfluenza 1 (PCR) Parainfluenza 2 (PCR) Parainfluenza 3 (PCR) Parainfluenza 4 (PCR) RSV (PCR) Entero/Rhino (PCR) 07/29/19 07/29/19 07/29/19 16:25 16:25 16:25 WBC 8.7 RBC 4.49 Hgb 14.9 Hct 42.3 MCV 94.3 MCH 33.1 MCHC 35.1 RDW 12.6 Plt Count 196 Neut % (Auto) 88.9 H Lymph % (Auto) 4.6 L [place] % (Auto) 6.4 Eos % (Auto) 0.0 L Baso % (Auto) 0.1 Neut # (Auto) 7800 H Lymph # (Auto) 400 L [place] # (Auto) 600 Eos # (Auto) 0 Baso # (Auto) 0 Sodium 138 Potassium 3.9 Chloride 100 Carbon Dioxide 22 BUN 14 Creatinine 0.70 Estimated GFR > 60.0 BUN/Creatinine Ratio 20.0 Glucose 95 Lactate Calcium 9.2 Magnesium 2.2 Total Bilirubin 1.2 AST 29 ALT 17 Alkaline Phosphatase 89 NT-Pro-B Natriuret Pep Total Protein 7.6 Albumin 4.0 Globulin 3.6 Albumin/Globulin Ratio 1.1 Procalcitonin 0.35 Chlamy pneumoniae PCR Adenovirus (PCR) B.parapertussis DNA PCR Coronavirus OC43 (PCR) Coronavirus HKU1 (PCR) Coronavirus 229E (PCR) Coronavirus NL63 (PCR) Human Metapneumovir PCR Influenza A (RT-PCR) Influenza Type A (PCR) Influenza B (RT-PCR) Influenza Type B (PCR) M. pneumoniae (PCR) Parainfluenza 1 (PCR) Parainfluenza 2 (PCR) Parainfluenza 3 (PCR) Parainfluenza 4 (PCR) RSV (PCR) Entero/Rhino (PCR) 07/29/19 18:24 WBC RBC Hgb Hct MCV MCH MCHC RDW Plt Count Neut % (Auto) Lymph % (Auto) [place] % (Auto) Eos % (Auto) Baso % (Auto) Neut # (Auto) Lymph # (Auto) [place] # (Auto) Eos # (Auto) Baso # (Auto) Sodium Potassium Chloride Carbon Dioxide BUN Creatinine Estimated GFR BUN/Creatinine Ratio Glucose Lactate Calcium Magnesium Total Bilirubin AST ALT Alkaline Phosphatase NT-Pro-B Natriuret Pep Total Protein Albumin Globulin Albumin/Globulin Ratio Procalcitonin Chlamy pneumoniae PCR Not detected Adenovirus (PCR) Not detected B.parapertussis DNA PCR Not detected Coronavirus OC43 (PCR) Not detected Coronavirus HKU1 (PCR) Not detected Coronavirus 229E (PCR) Not detected Coronavirus NL63 (PCR) Not detected Human Metapneumovir PCR Not detected Influenza A (RT-PCR) Influenza Type A (PCR) Not detected Influenza B (RT-PCR) Influenza Type B (PCR) Not detected M. pneumoniae (PCR) Not detected Parainfluenza 1 (PCR) Not detected Parainfluenza 2 (PCR) Not detected Parainfluenza 3 (PCR) Not detected Parainfluenza 4 (PCR) Not detected RSV (PCR) Detected H Entero/Rhino (PCR) Not detected Assessment & Plan Assessment & Plan narrative: This is a 73-year-old female who presents to the ER with 1 week of difficulty breathing with a productive cough and hypoxemia with bibasilar pneumonia on chest x-ray. 1. Acute respiratory failure with hypoxemia, present on admission, active. Progressive symptoms with worsening dyspnea for 1 week. Patient reports no prior history respiratory illness. Patient presents with respiratory rate documented documented 22 without oxygen saturation 88-90% and inability to speak in full sentences. Prominent past history smoking quitting 10 years ago with an approximately 90- 100 pack-year history. Patient improved to 92% with 2 L nasal cannula. Hypoxemia related to bibasilar pneumonia and chest x-ray is consistent with COPD and is congruent with smoking history. Will treat underlying etiology as below. 2. Acute community-acquired pneumonia, bibasilar, present on admission, active. Patient with dyspnea, cough productive for yellow sputum and right lateral chest wall pain described as pleuritic. CURB-65 score in the emergency department is 2. Breath sounds with bilateral coarseness and bibasilar crackles. Patient with normal white count at 8.7 with increased neutrophil count at 89%, lactic acid is 1.0, procalcitonin 0.35, flu screen is negative. Chest x-ray finds bibasilar infiltrates. Patient received ceftriaxone 1 g in the ER, ordered 1 g now to continue ceftriaxone 2 g daily. Patient received azithromycin 500 mg in the ER, ordered to continue 500 mg daily for total of 3 doses. Obtain a respiratory panel. 3. Right-sided chest pain, pleuritic, present on admission, active. Patient reports right-sided chest wall pain non palpable reproducible but described as pleuritic in character. Patient with family history of CVD in her father. Patient found to be markedly hypertensive on admission with a blood pressure of 211/99. Patient acknowledges history of palpitations. Pro BNP is well within normal at 140. Obtain troponin level. Obtain 12 lead EKG and patient will be monitored on telemetry. 4. Chronic obstructive lung disease, probable chronic bronchitis, present on admission, active. Patient is a past smoker quitting 10 years ago with an approximate 90-100 pack year history. Bilateral expiratory wheezing on exam with central coarseness and cough. Patient received Solu-Medrol 80 mg in the emergency department, patient with moderate symptoms will hold Solu-Medrol. Respiratory therapy to consult, evaluate and treat. DuoNeb every 6 hours as needed for shortness of breath or wheezing. Albuterol every 2 hours as needed for shortness of breath or wheezing. 5. Essential Hypertension, chronic, present on admission, active. The patient with a prior history of hypertension previously on medications that she self discontinued. Patient is hypertensive on admission to the ER at 211/99 improved to 149/89 at the time of patient assessment. Patient denies headaches or visual changes. No evidence hypertensive renal damage with a BUN of 14 and creatinine is 0.7. Patient received 1 L normal saline in the emergency department with normal saline at 150 cc/hour. IV will be saline locked. Will continue to monitor blood pressure closely and treat as indicated. VTE prophylaxis: Bilateral SCDs, Lovenox Diet: Heart healthy, low-sodium IVF: Saline lock. The patient is admitted to the hospital due to the severity of her symptoms with hypoxemia secondary to pneumonia and COPD not previously diagnosed requiring IV antibiotic treatment. The patient is admitted as inpatient with expected length of stay to be greater than 2 midnights.
[2019-07-29 23:13] LABS: Appearance Urine UA CLEAR; Bilirubin Urine UA NEGATIVE (NEGATIVE); Color Urine UA YELLOW; Glucose Urine UA NEGATIVE (Negative); Ketones Urine UA 3+ (NEGATIVE); Leukocyte Esterase Urine UA NEGATIVE (NEGATIVE); Nitrite Urine UA POSITIVE (Negative); Occult Blood Urine UA 2+ (Negative); Protein Urine UA 1+ (Negative); Specific Gravity Urine UA 1.015 (1.000-1.035); Urobilinogen Urine UA 0.2 E.U./dL (0.2)
[2019-07-29 23:14] LABS: Bacteria Urine Moderate (10-30); Mucus Urine 2+ (Negative); RBC Urine 0-1/HPF (0-5/HPF); Squamous Epithelial Cell Urine 0-1 /HPF (0-5/HPF); WBC Urine 0-1/HPF (0-5/HPF); pH Urine UA 6.5 (4.5-8.0)
[2019-07-29 23:15] LABS: Culture Indicated Urine Specimen Cultured
[2019-07-30] VITALS (10 sets, daily range): BP systolic 130–152; BP diastolic 68–92; PULSE 63–98; RESP 14–20; TEMP 36.3–37.3; O2SAT 87–97
--- NOTE | 2019-07-30 04:38 | PC.NURSE ---
Patient is alert and orientated, but a little forgetful. Denies pain. Lung sounds coarse bilaterally. Tele: NS. Wears a brief for some stress incontinence. Patient is able to ambulate, stand by assist. Patient is on contact precautions. Bed is low and locked, call light within reach,
[2019-07-30 05:51] LABS: Add Manual Diff / Slide Review NO; Basophils Absolute Auto 0 /uL (0-100); Basophils Percent Auto 0.2 % (0-2); Eosinophils Absolute Auto 0 /uL (0-450); Hematocrit 39.7 % (36-46); Hemoglobin 13.7 g/dL (12.0-16.0); Lymphocytes Absolute Auto 500 /uL (1100-4500); Lymphocytes Percent Auto 7.1 % (25-40); Mean Corpuscular HGB Conc 34.5 % (30-36); Mean Corpuscular Hemoglobin 31.8 PG (26-34); Mean Corpuscular Volume 92.1 fL (80-100); Monocytes Absolute Auto 200 /uL (0-900); Monocytes Percent Auto 3.1 % (3-14); Neutrophils Absolute Auto 6400 /uL (1500-7000); Neutrophils Percent Auto 89.6 % (50-75); Platelet Count 174 X10^3/uL (150-400); Red Blood Cell Count 4.31 X10^6/uL (4.0-5.2); Red Cell Distribution Width 12.5 % (11.6-14.8); White Blood Cell Count 7.2 X10^3/uL (4.5-11.0)
[2019-07-30 05:57] LABS: BUN Creatinine Ratio 22.5 (6-22); Blood Urea Nitrogen 18 mg/dL (7-17); Calcium 8.4 mg/dL (8.4-10.2); Carbon Dioxide 24 mmol/L (22-32); Chloride 102 mmol/L (98-107); Estimated Glomerular Filt Rate > 60.0 mL/min (>60); Glucose 193 mg/dL (80-110); HEMOLYSIS < 15 (0-50); Potassium 4.3 mmol/L (3.4-5.1); Sodium 134 mmol/L (137-145)
[2019-07-30] MEDS: ENOXAPARIN 40 MG/0.4 ML SYRINGE SUBCUT (10:28)
--- NOTE | 2019-07-30 11:01 | CM.DANOTE ---
Discharge Planning/Care Management DCP: assessment: Case received and discussed in Team Rounds. EMR, including insurance specifics from [employer] reviewed. DROPLET precautions: noted. Met then with pt and her daughter Sofi Valencia (who works at in housekeeping on acute care floor). Introduced self and role. Pt is found lying in bed, o2 in place, chatting with various staff members. She gives permission for this DCPlanner to talk with Sofi re specifics that may be related to her d/c plan needs. Spoke then with Sofi. She confirms pt's prior level of function: see specifics in template below. Pt is a 73 year old female who admitted to care of hospitalist team last evening. Payer: Medicare A only PCP: per Sofi, has not seen a provider, including the polymer materials consultant mentioned in the H&P, in years. Pt is admitted with community acquired pneumonia and new dx of COPD. POA: has not considered this. Discussed process with Sofi. 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 She currently lives on social security. Explained SHIBA process and how this might assist her mother in obtaining better insurance coverage. Shared info given to her mother by the Admission Counselor (see COL notes for details) as pt may not have fully understood this and Sofi agreed that she did not always retain information. Sofi notes all of this is new for her as my mother has never been sick before and she is very private.. P: DCP team tofollow as needs unfold to assist with d/c issues and options. CM Discharge Assessment Start: 07/30/19 10:57 Freq: Status: Active Protocol: Document 07/30/19 10:57 ITV (Rec: 07/30/19 11:01 ITV [id number]) Discharge Planning Assessment Advance Directives? No History Provided By Patient,Family Member,Medical Record Has Patient been admitted in last 30 No days? Prior Living Arrangements Apartment/Condo Household Members family Comment pt lives in a duplex with her 2 24 year old granddaughters. Her daughter Sofi also lives there but often stays with a friend. Sofi checks in on them frequently. Independent with ADL's Yes Is patient alert and oriented? alert, some ? of occ forgetfulness Caregiver for Another No Review Status In Process
--- NOTE | 2019-07-30 14:42 | PC.NURSE ---
Patients lung sounds are diminished but clear. She is on 2L of oxygen and sats in the high 90s. Up with min assist, voiding well and had a small bowel movement. Patient does have slight confusion but is oriented for the most part. She is napping now. Appetite is medium, daughter Jessie is allowed to have information on patient and is her daughter.
[2019-07-30] MEDS: CEFTRIAXONE 2 GM/50 ML FROZ.PIGGY IV (16:30)
[2019-07-30] MEDS: AZITHROMYCIN 500 MG in DEXTROSE 5% IN WATER 250 ML IV (17:47)
[2019-07-30] MEDS: guaiFENesin ER 600 MG TAB 1200 MG PO (21:42)
--- NOTE | 2019-07-30 22:50 | PC.NURSE ---
Flutter valve given and instruction for use provided.
[2019-07-31] VITALS (10 sets, daily range): BP systolic 128–158; BP diastolic 74–97; PULSE 64–87; RESP 14–19; TEMP 36.6–37; O2SAT 85–94
--- NOTE | 2019-07-31 02:41 | P.PN_ITS ---
Subjective Subjective Date Patient Seen: 07/30/19 Time Patient Seen: 20:20 Interval history: Ms. Tiffany Yanez is a 73-year-old female who appears older than her stated age with a significant medical history only for hypertension there presents to the hospital for shortness of breath. Patient was found to have bilateral lower lobe pneumonia believed of bacterial origin and subsequently was found to also be positive for respiratory syncytial virus. Overnight the patient has had no further complaints of chest pain no new complaints with stable vital signs, afebrile and is resting comfortably. Patient reports that she feels she is breathing more easily and is coughing more frequently and is now productive clear sputum. He/She denies nausea or hear tburn and has no abdominal pain. Morning labs show white count of 7.2 with elevated neutrophil count 89.6% and low lymphocytes at 7.1. Her sodium remains slightly low at 134 with remainder of electrolytes within normal range. Patient maintains adequate renal function with a BUN of 18 and creatinine of 0.8. Procalcitonin this morning is slight trend upward from 0.35-0.40. Exam Vital Signs (past 8 hours): - 07/30/19 19:33 07/30/19 20:45 07/30/19 23:50 Temperature 98.5 F 97.6 F Pulse Rate 83 71 Respiratory Rate 19 14 Blood Pressure 140/80 137/79 Pulse Oximetry 94 92 93 Oxygen Delivery Method Nasal Cannula Oxygen Flow Rate 2 Narrative Exam Narrative: General: Well developed, frail-appearing, speaking in full sentences in no acute distress. Skin: Warm, dry, pink HEENT: Normocephalic, PERRLA, oral mucosa pink and moist Neck: Supple, no JVD Cardiac: Regular rate and rhythm, S1-S2, no murmur, no edema Chest: Symmetrical movement, no accessory muscle use, pronounced cough with deep inspiration, Lungs: Clear right upper lobe bibasilar crackles, with central coarseness and scattered and expiratory wheeze. Abdomen: Soft, no tenderness or guarding, no organomegaly, BS normal. Extremities: Moving extremities x4, no synovial effusions or deformities. Neuro: AAOx to person and place, short-term memory deficit evident, no paresthesias Psych: pleasant, cooperative, stable mood and congruent affect Objective Labs Result Diagrams: 07/30/19 05:29 07/30/19 05:29 Labs: Laboratory Results - last 24 hr 07/30/19 07/30/19 07/30/19 05:29 05:29 05:29 WBC 7.2 RBC 4.31 Hgb 13.7 Hct 39.7 MCV 92.1 MCH 31.8 MCHC 34.5 RDW 12.5 Plt Count 174 Neut % (Auto) 89.6 H Lymph % (Auto) 7.1 L [place] % (Auto) 3.1 Eos % (Auto) 0.0 L Baso % (Auto) 0.2 Neut # (Auto) 6400 Lymph # (Auto) 500 L [place] # (Auto) 200 Eos # (Auto) 0 Baso # (Auto) 0 Sodium 134 L Potassium 4.3 Chloride 102 Carbon Dioxide 24 BUN 18 H Creatinine 0.80 Estimated GFR > 60.0 BUN/Creatinine Ratio 22.5 H Glucose 193 H Calcium 8.4 Procalcitonin 0.40 Assessment & Plan Assessment & Plan narrative: 1. Acute respiratory failure with hypoxemia, present on admission, improved Progressive symptoms with worsening dyspnea for 1 week. Patient reports no prior history respiratory illness. Prominent past history smoking quitting 10 years ago with an approximately 90- 100 pack-year history. The patient no longer has tachypnea and is stable on 2 L nasal cannula maintaining saturation in the low 90s, room air saturation 87%. 2. Acute community-acquired pneumonia, bibasilar, present on admission, active. Patient without shortness of breath at rest, cough productive for clear sputum now. Patient remains afebrile. Respiratory panel finds the patient positive for RSV and is on isolation. Breath sounds are improved today clear upper right, central coarseness with minimal scattered and expiratory wheezing. Will continue current antibiotics of Rocephin 2 g daily and Zithromax 500 mg daily. Added Mucinex 1200 mg twice daily Add flutter peep valve 3 times daily. 3. Right-sided chest pain, pleuritic, present on admission, resolved. Patient reports right-sided chest wall pain non palpable reproducible but described as pleuritic in character. Patient with family history of CVD in her father. Today the pain is no longer present even with patient coughing. No EKG changes on telemetry. Will continue to monitor. 4. Chronic obstructive lung disease, probable chronic bronchitis, present on admission, active. Patient is a past smoker quitting 10 years ago with an approximate 90-100 pack year history. Patient with improved breath sounds on exam with less wheezing. Continue DuoNeb every 6 hours as needed for shortness of breath or wheezing, and albuterol every 2 hours as needed for shortness of breath or wheezing. 5. Essential Hypertension, chronic, present on admission, active. The patient with a prior history of hypertension previously on medications that she self discontinued. Patient blood pressure is stable typically in the 130s systolic over 80s, her highest pressure being 152/92. The patient is adverse to routine medications preferring naturopathic approach. Will continue to monitor blood pressures. The patient presents is more comfortable visually and subjectively. She still requires oxygen maintain adequate saturations still has wheezing and chest congestion. Continue current treatment with antibiotics. Patient likely with undiagnosed COPD related to significant smoking history and will target oxygenation to 88-92%. Patient likely to be ready for discharge in 2 days.
[2019-07-31 06:12] LABS: Add Manual Diff / Slide Review NO; Basophils Absolute Auto 0 /uL (0-100); Basophils Percent Auto 0.2 % (0-2); Eosinophils Absolute Auto 0 /uL (0-450); Eosinophils Percent Auto 0.2 % (2-4); Hematocrit 38.7 % (36-46); Hemoglobin 13.4 g/dL (12.0-16.0); Lymphocytes Absolute Auto 1500 /uL (1100-4500); Lymphocytes Percent Auto 14.4 % (25-40); Mean Corpuscular HGB Conc 34.6 % (30-36); Mean Corpuscular Hemoglobin 31.9 PG (26-34); Mean Corpuscular Volume 92.2 fL (80-100); Monocytes Absolute Auto 600 /uL (0-900); Monocytes Percent Auto 6.3 % (3-14); Neutrophils Absolute Auto 8000 /uL (1500-7000); Neutrophils Percent Auto 78.9 % (50-75); Platelet Count 204 X10^3/uL (150-400); Red Cell Distribution Width 12.9 % (11.6-14.8); White Blood Cell Count 10.1 X10^3/uL (4.5-11.0)
[2019-07-31 06:22] LABS: BUN Creatinine Ratio 26.7 (6-22); Blood Urea Nitrogen 16 mg/dL (7-17); Calcium 8.6 mg/dL (8.4-10.2); Carbon Dioxide 23 mmol/L (22-32); Chloride 107 mmol/L (98-107); Estimated Glomerular Filt Rate > 60.0 mL/min (>60); Glucose 112 mg/dL (80-110); HEMOLYSIS < 15 (0-50); Potassium 3.3 mmol/L (3.4-5.1); Sodium 137 mmol/L (137-145)
[2019-07-31 06:47] LABS: Procalcitonin 0.27 ng/mL (<0.5)
[2019-07-31] MEDS: UMECLIDINIUM/VILANTEROL 62.5/2 14 PUFF INHALER INH (08:27)
[2019-07-31] MEDS: ENOXAPARIN 40 MG/0.4 ML SYRINGE SUBCUT (09:09)
[2019-07-31] MEDS: guaiFENesin ER 600 MG TAB 1200 MG PO ×2 (09:09→20:34)
--- NOTE | 2019-07-31 09:47 | PC.NURSE ---
Addendum entered by Chapis Chavarria R.N. 07/31/19 14:17: RESP - after RT tmt, pt 02 sat decr to 87-89% with activity up br, sink for adl, mild sob w/activity, ret to bed and replaced nc at 2l until sat 90%. Original Note: AM NOTE - pt is alert during bedside shift report, intermittent congested cough and nasal congestions, sputum clear, white, denies discomfort, bs w/expir wheezes upper lobes, dim bases, 2l 92-93%, RT in this am and provided treatment.
--- NOTE | 2019-07-31 10:51 | OT.IP.EVAL ---
Current Diagnoses Acute respiratory failure with hypoxia (07/29/19) Past Medical History (Last Reviewed 07/29/19 @ 21:49 by SLOANE Hoffmann) H/O: HTN (hypertension) (Chronic) Palpitations (Acute) Surgical History (Last Reviewed 07/29/19 @ 21:49 by SLOANE Hoffmann) No pertinent past surgical history (Chronic) Occupational Therapy Inpatient Evaluation/Re-Eval M1 PT/OT-IP Prior Functional Status Start: 07/31/19 14:13 Freq: NEEDED Status: Active Protocol: Document 07/31/19 14:13 [facility] (Rec: 07/31/19 14:56 [facility] [id number]) Medical Review Prior Functional Status Medical History Reviewed Yes Communication Independent. Mobility and Gait Pt states did not use a device or use of any oxygen prior. Activities of Daily Living and IADL's Completely independent with ADL, IADL's and states cares for her grand kids when their mom's are at work. Social History Household Members family Living Arrangements Apartment/Condo Number of Stairs To Enter/Railing? 13 steps with bilateral rails to get to the apartment. Home Environment Standard Height Toilet,Tub/ Shower Additional Social History Comment Pt states sleeps on the couch. In addition there is a friend that stays there all the time per daughter. Pt's daughter states noted that her mother has gotten more forgetful and decreased cognition more recently. M2 OT-IP Current Condition Start: 07/31/19 14:13 Freq: Status: Active Protocol: Document 07/31/19 14:13 [facility] (Rec: 07/31/19 14:56 [facility] [id number]) Occupational Therapy Current Condition Current Condition Evaluation Date 07/31/19 Treatment Diagnosis COPD, bilateral PNA Diagnosis Onset Date 07/29/19 Weight Bearing Status Weight Bearing Status Weight Bear as Tolerated M3 OT- IP Subjective and Pain Start: 07/31/19 14:13 Freq: Status: Active Protocol: Document 07/31/19 14:13 [facility] (Rec: 07/31/19 14:56 [facility] [id number]) OT- Subjective Occupational Therapy Visit Type Type Initial Evaluation Visit Start Time 10:51 Visit Stop Time 11:20 Total Visit Minutes 31 Occupational Therapy Visit Comments Patient Comments Initially pt not open to doing OT eval as states, I can care for myself, but then agreeable to work with OT. Patient/Caregiver Goals Pt wanting to go home and return to taking care of herself and also babysitting her grand kids. OT Pain Assessment Pain When Pain Assessed At Rest Pain Present Pain Present Denied Pain M4 OT- IP ADL's Start: 07/31/19 14:13 Freq: Status: Active Protocol: Document 07/31/19 14:13 [facility] (Rec: 07/31/19 14:56 [facility] [id number]) OT EWE-Ltgk-Gufrljz Comments OT Self-Feeding Comments Not at meal time, pt able to drink independently from a cup . OT ADL-Grooming Comments OT Grooming Comments Pt states did earlier. OT ADL-Dressing General Eval Lower Body Dressing Ability Standby Assistance Comments OT Dressing Comments While sitting on the edge of the bed pt able to nuzhat/doff her socks with her legs crossed over. Pt also able to put lotion on her legs independently. OT ADL-Toileting Comments OT Toileting Comments Pt states just used the toilet earlier. OT ADL-Bathing Comments OT Bathing Comments Pt states to shower this evening. Pt has a tub/shower at home but does not recall if there is a grab bar to hold to . M5 OT- IP IADL's Start: 07/31/19 14:13 Freq: Status: Active Protocol: Document 07/31/19 14:13 [facility] (Rec: 07/31/19 14:56 [facility] [id number]) OT-Instrumental Activities of Daily Living Home Safety Awareness Awareness of Need for Assistance at Home Decreased Awareness Ability to Problem Solve Emergency Unable to Problem Solve Situations Home Safety Comments Pt not able to identify to call 911 in case of emergency , even after given her initial cue of 9__. Pt not knowing what to do in case of the toilet overflowing. In addition pt did not know what to do in case of severe chest pain, she states would call her neighbor. Pt admitted to one time that her grandchild got out of the house when she was baby sitting and that the neighbor had to bring the child back. When asked how to prevent the child from leaving again, pt not able to give any suggestions. Due to pt's poor safety awareness, strongly recommend that pt not baby sit and that would be best for pt to have someone to supervise her at all times due to decreased functional cognition . Medication Management Medication Management Comments Pt states does not take any medications. Money Management Money Management Comments Pt's daughter states mainly that she takes money out of the [employer] to be able to give to her daughter in order for her share of the bills to be paid. Meal Preparation Meal Preparation Comments At this time recommend assist. Craft Manager Craft Manager Comments Recommend assist at this time. Driving Driving Caregiver Provides Assist M6 OT- IP Functional Cognition Start: 07/31/19 14:13 Freq: Status: Active Protocol: Document 07/31/19 14:13 [facility] (Rec: 07/31/19 14:56 [facility] [id number]) Cognitive Factors Limiting Selfcare Function Cognitive Ability Level of Alertness Alert,Confusional State Patient Orientation Name Attention Span Ability Capable of Focused Attention, Capable of Sustained Attention Ability to Follow Commands Able to Follow One Step Commands Memory Description Short Term Impaired,Working Impaired Safety Awareness Underestimates Need for Assistance Problem Solving Ability Unable to Identify Errors, Needs Assist to Identify Solutions Executive Function Ability Unable to Filter Distractions, Unable to Make Plans,Unable to Organize Plans,Unable to Remember Details Abstract Thinking Ability Unable to Make Generalizations Cognitive Tests SLUMS Pt scored 12/30 normal score for pt's education is 25/30, pt's score implies dementia. 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 Only able to states 6 animals in one minute, unable to recall any of the 5 objects after time passed, unable to states 4 digit number backwards, unable to draw the numbers or clock hands correctly, and able to recall 2/4 questions right after a paragraph read. Cognitive Comments Cognitive Assessment Comments Pt during conversation goes between present and past of when she use to drive a truck. Pt decreased insight to her deficits. Oh I will get a lot stronger getting in and out of a truck. Pt not aware that she is in the hospital or even knows what city she is in. Pt is insistent that she is be back to normal once she gets home. OT- Vision and Hearing OT- Hearing Assessment OT- Hearing Assessment WFL OT- Vision Assessment Visual Attentiveness WFL Occular Pursuits WFL M7 OT- IP Mobility and Balance Start: 07/31/19 14:13 Freq: Status: Active Protocol: Document 07/31/19 14:13 [facility] (Rec: 07/31/19 14:56 [facility] [id number]) OT- Bed Mobility Assessment Rolling Type of Rolling Roll to Right Level of Assistance Standby Assistance Supine to Sit Supine to Sit Assist Standby Assistance,Bedrails Sit to Supine Sit to Supine Assist Standby Assistance,Bedrails OT-Transfer Assessment Sit to and From Stand Sit to and from Stand Contact Guard Assistance,1 Person Assistance Transfers Transfer Ability Contact Guard Assistance,1 Person Assistance Technique Transfer Destination Bed Transfer Technique Stand Step Pivot Devices Transfer Assistive Devices None,Gait Belt Comments Mobility Comments SBA to get into and out of the bed. CGA while turning around 360 to the left and slight loss of balance and needing CGA. Pt able to bend down without hold of surface to picker tender helper item from the floor. OT- Gait Assessment Comments Gait Ability Comments See PT shareeal for more details. OT- Balance Assessment Sitting Balance and Reactions Static Sitting Balance Ability Normal Dynamic Sitting Balance Ability Normal Standing Balance and Reactions Static Standing Balance Ability Good Dynamic Standing Balance Ability Fair M8 OT- IP Objective Assessments Start: 07/31/19 14:13 Freq: Status: Active Protocol: Document 07/31/19 14:13 [facility] (Rec: 07/31/19 14:56 [facility] [id number]) OT Gross Range of Motion Upper Extremity Range of Motion Assessment Within Functional Limits OT Strength Upper Extremity Strength Assessment Within Functional Limits OT- Coordination Assessment Upper Extremity Finger to Nose Test Bilateral UE Impaired OT-Muscle Tone Assessment Muscle Tone WNL Yes M9 OT- IP Assessment and Plan Start: 07/31/19 14:13 Freq: Status: Active Protocol: Document 07/31/19 14:13 [facility] (Rec: 07/31/19 14:56 [facility] [id number]) OT Summary Assessment and Plan Potential Rehabilitation Potential Good Analytic Complexity at Evaluation Low Summary OT Impairments Balance,Functional Cognition, Functional Mobility,Grooming, Dressing,Toileting,Bathing, Toilet Transfers,Shower Transfers,Activity Tolerance Progress Towards Goals Slow Progress due to Activity Tolerance,Slow Progress due to Cognition Assessment Summary Pt low complexity and main barriers are decreased activity tolerance, safety awareness, currently on O2,and at this time would be beneficial to go to skilled rehab versus home with supervision/assist at all times and home health. Pt has decreased insight to her deficits and SLUMS score of 12 /30 which implies dementia. OT to continue to work with pt on improving on increased awareness for safety, education for energy conservation, and continue to assess her cognitive status. Goals Self-Feeding Goal Independent Grooming Goal Independent Dressing Goal Independent Toileting Goal Independent Bathing Goal Standby Assistance Toilet Transfer Goal Independent Shower Transfer Goal Contact Guard Assistance Patient/Caregiver Education Goal Demonstrate Energy Conservation and Pacing Days to Meet Goals 5 Frequency of Treatment Frequency Of Treatment Once a Day Treatment Plan OT Treatment Plan ADL Training,Functional Cognition Training,Functional Mobility,Patient/Family Education,Discharge Planning Other Treatment Recommendations and Next Shower, ACL Treatment Focus Discharge Recommendations OT Discharge Recommendations Home with 24/7 Assist,Home Health,SNF Rehab Home Equipment Needs shower chair Transportation Needs at Discharge Private Vehicle
--- NOTE | 2019-07-31 11:42 | CM.DPC ---
Addendum entered by Yesi Love R.N. 07/31/19 14:10: Sofi, daughter of patient, spoke to patient and she gave permission to include other daughter, Wojciech, for information if needed. Wojciech's phone number is: [phone]. Sofi mentioned that her sister, Wojciech, was trying to get patient to move [place] with her, for she has a guest house, but patient declined. Stated, her mom is happy here, because she has family here. Addendum entered by Yesi Love R.N. 07/31/19 13:07: Spoke to patient's daughter, Sofi, who was in tears. She is feeling overwhelmed, feels that her sister, who lives in [place], is not helping with decisions. Sofi mentioned, she was concerned about what occupational therapy said about her mother's memory. She also mentioned, she will never go to skilled or an assisted living facility. 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 Discussed having a tree care foreman coming in, but daughter stated, she is living off of her social security which is about $1500.00 a month. Mentioned applying to Medicaid. Went ahead and faxed over admission counselors to see if they can assist patient's daughter filling out application. Let daughter know, that if patient does qualify for Medicaid, she could apply for [facility]. At this time, plan is still for patient to go home. Will follow closely. Original Note: DCP Cont: Met with patient in her room. Pleasant. She talked about driving a truck in her past career, and travels. Stated that she is from [place], but lived in [facility]. Discussed post discharge, mentioned skilled, and patient stated, that's pretty scary. Patient mentioned that she has good home support. Has twins at home that are 24 years of age, and grand children that are 5 years old. Spoke with patient's daughter, Sofi, who is employed here at the hospital. Stated that she will be going by the [employer] office tomorrow, stated that she did receive all of the information that Radha provided for her. Daughter confirmed that patient will have support from family when she discharges. P: DCP to continue to follow and will be available for any resources needed. At this time, patient is wanting to go home. Yesi Love RN/Scudding Inspector
[2019-07-31] MEDS: CEFTRIAXONE 2 GM/50 ML FROZ.PIGGY IV (16:38)
[2019-07-31] MEDS: POTASSIUM CHLORIDE 20 MEQ TAB 40 MEQ PO (16:38)
--- NOTE | 2019-07-31 16:54 | PM.PN.1 ---
Subjective Subjective Date Patient Seen: 07/31/19 Interval history: Tiffany Yanez is a 73-year-old female with poor insight and a past medical history significant for hypertension now on treated and untreated COPD who presented to the ED with progressive worsening shortness of breath. The patient is resting in bed comfortably. She reports that her cough is becoming more productive and her pulmonary congestion is improving. She endorses chronic dyspnea on exertion. She denies headache, ear pain, rhinitis, sore throat, chest pain, abdominal pain, nausea, vomiting, fever, chills, dysuria, diarrhea or constipation. Discussed significant smoking history and resulted COPD in detail for which the patient has very poor insight and states ?if I would state in [place] this may not of happened.? She is voiding without difficulty. She has not had a bowel movement since admission and a bowel regimen has been implemented. She is up ambulating with assistance. Exam Vital Signs (past 8 hours): - 07/31/19 16:00 07/31/19 16:34 07/31/19 20:35 Temperature 98.6 F 98.5 F Pulse Rate 80 87 Respiratory Rate 19 19 Blood Pressure 157/78 H 141/84 H Pulse Oximetry 93 90 L 91 07/31/19 23:10 Temperature Pulse Rate 78 Respiratory Rate 16 Blood Pressure Pulse Oximetry 94 Oxygen Delivery Method Room Air Oxygen Flow Rate 0 Narrative Exam Narrative: General: Older thin female lying in bed and in no acute distress, appears older than stated age, well-developed, well-nourished, poor insight into disease processes but otherwise appropriately interactive. HEENT: Normocephalic, atraumatic. External ears without defect. Pupils equal, round, and reactive to light and accommodation. Anicteric sclerae, moist conjunctivae, and no lid lag. Oropharynx free of erythema and cobble stoning with moist mucosa. Neck: Supple with full range of motion. No lymphadenopathy or thyromegaly. Cardiovascular: Regular rate and rhythm without murmurs, rubs, or gallops appreciated. Pulmonary: Coarse lung sounds throughout without wheeze. Normal respiratory effort with no use of accessory muscles. Abdomen: Soft, bowel sounds present, ontender, nondistended. No hepatosplenomegaly or masses appreciated. Extremities: No clubbing, cyanosis, or edema. Skin: Normal temperature, turgor, and texture; no rash, ulcers, or subcutaneous nodules appreciated. Neurological: Cranial nerves grossly intact. Psychiatric: Normal mood and affect. Poor insight. Alert and oriented to person, place, and time. Objective Labs Result Diagrams: 08/01/19 05:32 08/01/19 05:32 Labs: Laboratory Results - last 24 hr 07/31/19 07/31/19 07/31/19 05:55 05:55 05:55 WBC 10.1 RBC 4.20 Hgb 13.4 Hct 38.7 MCV 92.2 MCH 31.9 MCHC 34.6 RDW 12.9 Plt Count 204 Neut % (Auto) 78.9 H Lymph % (Auto) 14.4 L Isabella % (Auto) 6.3 Eos % (Auto) 0.2 L Baso % (Auto) 0.2 Neut # (Auto) 8000 H Lymph # (Auto) 1500 Isabella # (Auto) 600 Eos # (Auto) 0 Baso # (Auto) 0 Sodium 137 Potassium 3.3 L Chloride 107 Carbon Dioxide 23 BUN 16 Creatinine 0.60 Estimated GFR > 60.0 BUN/Creatinine Ratio 26.7 H Glucose 112 H Calcium 8.6 Procalcitonin 0.27 Assessment & Plan Assessment & Plan narrative: Tiffany Yanez is a 73-year-old female with poor insight and a past medical history significant for hypertension now on treated and untreated COPD who presented to the ED with progressive worsening shortness of breath. 1. Acute hypoxemic respiratory failure, present on admission. Resolving. -Patient presented with progressive worsening shortness of breath and dyspnea on exertion. -Patient has a significant smoking history of approximately 90-100 pack-year history and reports she quit several months ago. Of note, patient told admitting provider that she had quit 10 years ago. -Continue respiratory therapy evaluation and treatment. Continue supplemental oxygen as necessary to keep oxygen saturation 88-92% and slowly titrate off as tolerated. Patient currently on 2 L maintaining oxygen saturation in mid 90s. 2. Acute RSV with superimposed bacterial pneumonia, present on admission. Active. -Ordered pneumonia workup including: Respiratory viral PCR positive for RSV. Urine antigens not obtained.. Sputum culture pending. Blood cultures x2 have no growth to date. -Received ceftriaxone 1 g IV x1 and azithromycin 500 mg IV x1 in ED. Continue ceftriaxone 2 g IV daily and azithromycin 500 mg x 3 total doses. and Breath sounds are improved today clear upper right, central coarseness with minimal scattered and expiratory wheezing. -Continue supportive care with: Mucinex 1200 mg twice daily and Acapella 10 times every 1 hour while awake 3. Right-sided pleuritic chest pain, present on admission. Resolved. -Patient presented with right-sided chest wall pain that was not reproducible with palpation but described as pleuritic in character. Patient with family history of CVD in her father. -EKG did not demonstrate any acute ischemic changes. -Continue acetaminophen 650 mg every 6 hours as needed for pain. Discontinued oxycodone as not indicated. 4. Chronic obstructive lung disease, with probable acute exacerbation due to viral illness, present on admission. Acute exacerbation resolved. -Patient presented with progressive worsening shortness of breath, dyspnea on exertion and wheezing. -Received methylprednisolone 80 mg IV x1 in ED. Did not continue steroids as patient's wheezing has resolved. -Continue DuoNeb every 6 hours as needed for shortness of breath or wheezing, and albuterol every 2 hours as needed for shortness of breath or wheezing. 5. Hypertension, chronic, present on admission. Stable. -Patient with a prior history of hypertension previously on antihypertensives that she self discontinued. -Patient has been intermittently hypertensive with SBP 150's. -Consider implementation of antihypertensive such as losartan 25 mg daily. Patient is adverse to medications. Code status: Full code VTE prophylaxis: Enoxaparin and SCDs Disposition: Patient will likely discharge home with home health tomorrow once acute hypoxemia has improved and/or resolved.
--- NOTE | 2019-07-31 17:03 | PT.IIE ---
Current Diagnoses Acute respiratory failure with hypoxia (07/29/19) Surgical History (Last Reviewed 07/29/19 @ 21:49 by SLOANE Hoffmann) No pertinent past surgical history (Chronic) Medical History (Last Reviewed 07/29/19 @ 21:49 by SLOANE Hoffmann) H/O: HTN (hypertension) (Chronic) Palpitations (Acute) Physical Therapy Inpatient Evaluation/Re-Eval M1 PT/OT-IP Prior Functional Status Start: 07/31/19 14:13 Freq: NEEDED Status: Active Protocol: Document 07/31/19 16:23 AW (Rec: 07/31/19 17:02 AW [id number]) Medical Review Prior Functional Status Medical History Reviewed Yes Communication Independent. Mobility and Gait Pt states did not use a device or use of any oxygen prior. Activities of Daily Living and IADL's Completely independent with ADL, IADL's and states cares for her 5 and 2 yo grand kids when their mom's are at work up to 7 days per week. Prior Functional Level (Other details) Pt cooks, drives, and manages her own finances. She states she does not take any medications, preferring to consult a phonograph mechanic when needed. Social History Household Members family Living Arrangements Apartment/Condo Number of Floors (Floors) Two Floors Number of Stairs To Enter/Railing? 13 steps with narrow bilateral rails to get to the apartment . Garage and bathroom is downstairs. Kitchen and bedrooms are upstairs. Pt states she sleeps on a couch upstairs. Home Environment Standard Height Toilet,Tub/ Shower Doors Home Equipment Grab Bars In Shower Employment Status Retired Additional Social History Comment Pt lives in a duplex with her twin 24 yo granddaughters and her two young great-grandsons. Per OT note: In addition there is a friend that stays there all the time per daughter. Pt's daughter states that her mother has gotten more forgetful and decreased cognition more recently. M2 PT-IP Current Condition Start: 07/31/19 12:03 Freq: NEEDED Status: Active Protocol: Document 07/31/19 16:23 AW (Rec: 07/31/19 17:02 AW [id number]) Physical Therapy Current Condition Current Condition Evaluation Date 07/31/19 Treatment Diagnosis hypoxia, pneumonia, impaired balance/mobility, reduced activity tolerance Onset Date 07/29/19 Precautions Other Precautions - Droplet precautions. - Per hospitalist, pt with COPD - SpO2 target 88-92% Weight Bearing Status Weight Bearing Status Full Weight Bearing M3 PT-IP Subjective Start: 07/31/19 12:03 Freq: NEEDED Status: Active Protocol: Document 07/31/19 16:23 AW (Rec: 07/31/19 17:02 AW [id number]) Subjective Physical Therapy Visit Type Type Initial Evaluation Visit Start Time 15:58 Visit Stop Time 16:20 Total Visit Minutes 22 Notes Pt on 2L O2. Per hospitalist request, trial activity without O2 this session. Physical Therapy Visit Comments Patient Comments Pt is feeling good and willing to participate with PT Patient Goals Pt hopes to return home and to continue caring for her grandsons Therapy Pain Assessment Pain When Pain Assessed During Mobility Pain Present Pain Present Denied Pain M4 PT-IP Mobility and Gait Start: 07/31/19 12:03 Freq: NEEDED Status: Active Protocol: Document 07/31/19 16:23 AW (Rec: 07/31/19 17:02 AW [id number]) PT-Bed Mobility Assessment Supine to Sit Supine to Sit Standby Assistance Scooting Scooting to Edge of Bed Standby Assistance PT-Transfer Assessment Sit to and From Stand Sit to and from Stand Standby Assistance Equipment Transfer Assistive Device None,Gait Belt Transfers Transfer Destination Chair Transfer Technique pt ambulated without AD Transfer Ability Level of Assist Standby Assistance Comments Mobility Comments Pt sitting up in bed upon PT arrival. She completed supine to sit from flat bed SBA and sat EOB with BUE support for MMT. She completed sit to stand without assistive device SBA and took two steps away from the bed for balance assessment. She then ambulated in the room (including marching in place 60 seconds) on room air with SpO2 ranging 89-91%. Pt transferred to the chair SBA and was positioned with call light and table within reach. Reported pt's position to BUSINESS LINE CONTROLLER. Also reported that she had been left without O2 applied after successful activity trial. Gait Assessment Gait Gait Assistance Required: Standby Assistance,Contact Guard Assist Distance (Feet) 60 Able to Maintain Weight Bearing Status Yes During Gait Assistive Devices Assistive Device None,Gait Belt Orthotic/Prosthetic Devices or Brace: No Gait Deviations General Gait Pattern Decreased Stride Length, Decreased Feet Clearance, Narrow Based Gait Factors Limiting Gait Function Factors Limiting Gait Function Decreased Activity Tolerance, Decreased Strength,Poor Balance,Poor Safety Awareness Comments Gait Comments Pt ambulated several laps in the room and also completed 30 seconds x [address] without assistive device . During both reps of marching in place, pt had a lateral LOB to her right from which she was able to recover with therapist CGA. She had no such LOB during ambulation trial. SpO2 maintained 89-91% on room air during activity. After ~ 60 feet ambulation in room, pt required up to CGA due to evident fatigue and reported shortness of breath. Stair Climbing Assessment Comments Stair Climbing Comments Not assessed. PT-Balance Assessment Sitting Balance and Reactions Static Sitting Balance Ability Good Dynamic Sitting Balance Ability Good Standing Balance and Reactions Static Standing Balance Ability Fair Dynamic Standing Balance Ability Fair Device Used none Comments Other Balance Tests/Deviations/Treatment Pt unable to stand with narrow : base of support longer than 12 seconds on three consecutive trials before (+) LOB to her right from which she was able to recover either independently or with therapist CGA. M5 PT-IP Objective Assessments Start: 07/31/19 12:03 Freq: NEEDED Status: Active Protocol: Document 07/31/19 16:23 AW (Rec: 07/31/19 17:02 AW [id number]) Orientation Orientation/Cognition Level of Alertness Alert Orientation Name,Month,Place,Situation Language Function Ability No Deficits Noted Safety Awareness Decreased Safety Awareness Gross Range of Motion Lower Extremity ROM Assessment Within Functional Limits Strength Lower Extremity Strength Assessment Bilaterally Impaired Hip 4-/5 Knee 4/5 Ankle 4/5 Sensation Assessment Sensation Gross Sensation WNL Muscle Tone Muscle Tone WNL Yes M6 PT-IP Treatment Start: 07/31/19 12:03 Freq: NEEDED Status: Active Protocol: Document 07/31/19 16:23 AW (Rec: 07/31/19 17:02 AW [id number]) Physical Therapy Treatment Education Education Provided Precautions,Safety Other Treatments Other Treatment Performed Provided education on role of PT, plan of care, selection of appropriate assistive device if needed. M7 PT-IP Assessment and Plan Start: 07/31/19 12:03 Freq: NEEDED Status: Active Protocol: Document 07/31/19 16:23 AW (Rec: 07/31/19 17:02 AW [id number]) PT Summary Assessment and Plan Potential Rehabilitation Potential Good Status of Condition at Evaluation Stable Summary Impairments Strength,Balance,Cognition, Transfers,Gait,Activity Tolerance Assessment Summary No is an active 73 yo woman seen for PT evaluation two days after admission with hypoxia related to pneumonia. At baseline, pt is completely independent without need for oxygen or other supportive services. She provides care up to 7 days a week for her 2 and 5 yo grandsons who live with her. On evaluation, pt required SBA for most mobility and CGA as she fatigued and became more unsteady after ~60 feet ambulation without AD. She maintained SpO2 89-91% on room air during activity - consistent with hospitalist recommendation for this pt with COPD exacerbation. Pt presents with decreased activity tolerance and impaired balance. She will likely be safe to discharge home with increased assist (up to 28/12) and decreased rn maternal child responsibilities in the short term. She would also benefit from outpatient PT to address balance deficits. Goals Bed Mobility Goal Independent Transfer Goal Independent Gait Goal Independent Gait Distance 250 Other Goals - up/down 13 steps with bilateral rails independent Days to Meet Goals 3 Frequency of Treatment Frequency Of Treatment Once a Day Treatment Plan Physical Therapy Treatment Plan Bed Mobility Training,Transfer Training,Gait Training, Therapeutic Exercise,Balance Retraining,Discharge Planning, Neuromuscular Re-ed, Coordination Retraining Other Recommendations and Next Treatment DGI, 4-item DGI, or other Focus balance outcome measure; balance training; assess safety on stairs Recommendations To Nursing Amount of Assist Needed Standby Assistance,1 Person Assist Discharge Recommendations PT Discharge Recommendations Home with Assistance,Home with 24/7 Assist,Outpatient PT Transportation Needs at Discharge Private Vehicle
[2019-07-31] MEDS: AZITHROMYCIN 500 MG in DEXTROSE 5% IN WATER 250 ML IV (18:35)
--- NOTE | 2019-07-31 22:54 | PC.NURSE ---
A&OX3, forgetful. 93%RA. pt worked with PT today, 87-90's RA with activity. SBA to the BR. denied pain or nausea. IV abx. pt occasionally uses he flutter valve. productive cough. small amount of sputum per pt report. call light in reach. bed alarm active.
[2019-08-01] VITALS (8 sets, daily range): BP systolic 143–153; BP diastolic 77–87; PULSE 65–82; RESP 16–22; TEMP 36.8–37.3; O2SAT 85–93
[2019-08-01 05:49] LABS: Add Manual Diff / Slide Review NO; Basophils Absolute Auto 0 /uL (0-100); Basophils Percent Auto 0.3 % (0-2); Eosinophils Absolute Auto 0 /uL (0-450); Eosinophils Percent Auto 0.7 % (2-4); Hematocrit 39.5 % (36-46); Hemoglobin 13.4 g/dL (12.0-16.0); Lymphocytes Absolute Auto 1400 /uL (1100-4500); Mean Corpuscular HGB Conc 33.8 % (30-36); Mean Corpuscular Hemoglobin 31.3 PG (26-34); Mean Corpuscular Volume 92.5 fL (80-100); Monocytes Absolute Auto 600 /uL (0-900); Monocytes Percent Auto 10.3 % (3-14); Neutrophils Absolute Auto 3700 /uL (1500-7000); Neutrophils Percent Auto 64.7 % (50-75); Platelet Count 235 X10^3/uL (150-400); Red Blood Cell Count 4.27 X10^6/uL (4.0-5.2); Red Cell Distribution Width 13.1 % (11.6-14.8); White Blood Cell Count 5.7 X10^3/uL (4.5-11.0)
[2019-08-01 06:01] LABS: BUN Creatinine Ratio 17.1 (6-22); Blood Urea Nitrogen 12 mg/dL (7-17); Calcium 8.3 mg/dL (8.4-10.2); Carbon Dioxide 26 mmol/L (22-32); Chloride 105 mmol/L (98-107); Estimated Glomerular Filt Rate > 60.0 mL/min (>60); Glucose 99 mg/dL (80-110); HEMOLYSIS < 15 (0-50); Potassium 4.2 mmol/L (3.4-5.1); Sodium 138 mmol/L (137-145)
--- NOTE | 2019-08-01 09:27 | DIET.PN ---
Dietary Progress Note Assessment: Ms. Yanez is a 73-year-old female with past medical history of hypertension now on treated and untreated COPD who presented to the ED with progressive worsening shortness of breath. She reports moderate decrease in appetite with with weight loss and noticeable loss of lean body mass. She has a significant smoking history of approximately 90-100 pack-year history and reports quitting 10 yrs ago per chart records. However, she later reports to quitting several months ago. She reports food recall of limited junk food and red meat with a large amount of fresh fruits and vegetables. Patient states food is bland and requests butter. HT: 162.56cm WT: 56kg UBW: does not know BMI: 21.2 Labs: Gluc: 193, 112 MNA: 8 Jimmy: 22 PO's: ~20% Nutrition Diagnosis: Inadequate energy intake r/t food-and nutrition-related knowledge deficit, decreased appetite aeb intake from diet <75% EER, food avoidance and/or lack of interest in food. Interventions: 1. Discussed heart healthy nutrition therapy. Recommended appropriate sodium and saturated fat for heart health. 2. Discussed protein needs for maintaining healthy body weight and lean body mass. Pt with good understanding. 3. Provide ONS ensure as PO's <50% EER Diet Order: Heart Healthy, Low Sodium EER: 1600 dmitry @ 30cal/kg ; Pro 70g @1.3g/kg Monitoring/Evaluations: Wt, PO intake, ONS acceptance
[2019-08-01] MEDS: ENOXAPARIN 40 MG/0.4 ML SYRINGE SUBCUT (09:34)
[2019-08-01] MEDS: guaiFENesin ER 600 MG TAB 1200 MG PO (09:34)
--- NOTE | 2019-08-01 09:40 | OT.IP.TRT ---
Current Diagnoses Acute respiratory failure with hypoxia (07/29/19) Occupational Therapy Treatment Note M2 OT-IP Current Condition Start: 07/31/19 14:13 Freq: Status: Active Protocol: Document 07/31/19 14:13 [facility] (Rec: 07/31/19 14:56 [facility] [id number]) Occupational Therapy Current Condition Current Condition Evaluation Date 07/31/19 Treatment Diagnosis CPOD, bilateral PNA Diagnosis Onset Date 07/29/19 Weight Bearing Status Weight Bearing Status Weight Bear as Tolerated M3 OT- IP Subjective and Pain Start: 07/31/19 14:13 Freq: Status: Active Protocol: Document 08/01/19 09:48 [facility] (Rec: 08/01/19 10:10 [facility] [id number]) OT- Subjective Occupational Therapy Visit Type Type Treatment Note Visit Start Time 08:47 Visit Stop Time 09:40 Total Visit Minutes 53 Occupational Therapy Visit Comments Patient Comments Pt eating breakfast but open to re-doing cognitive assessments. Patient/Caregiver Goals Pt wanting to go back home to take care of her great-grand kids. OT Pain Assessment Pain When Pain Assessed At Rest Pain Present Pain Present Denied Pain M5 OT- IP IADL's Start: 07/31/19 14:13 Freq: Status: Active Protocol: Document 07/31/19 14:13 [facility] (Rec: 07/31/19 14:56 [facility] [id number]) OT-Instrumental Activities of Daily Living Home Safety Awareness Awareness of Need for Assistance at Home Decreased Awareness Ability to Problem Solve Emergency Unable to Problem Solve Situations Home Safety Comments Pt not able to identify to call 911 in case of emergency , event after given her initial cue of 9__. Pt not knowing what to do in case of the toilet overflowing. In addition pt did not know what to do incase of severe chest pain, she states would call her neighbor. Pt admitted to one time that her grandchild got out of the house when she was baby sitting and that the neighbor had to bring the child back. When asked how to prevent the child from leaving again, pt not able to give any suggestions. Due to pt's poor safety awareness, strongly recommend that pt not baby sit and that would be best for pt to have someone to supervise her at all times due to decreased functional cognition . Medication Management Medication Management Comments Pt states deos not take any medications. Money Management Money Management Comments Pt's daughter states mainly that she takes money out of the [employer] to be able to give to her daughter in order for her share of the bills to be paid. Meal Preparation Meal Preparation Comments At this time recommend assist. Manager Perioperative Manager Perioperative Comments Recommend assist at this time. Driving Driving Caregiver Provides Assist M6 OT- IP Functional Cognition Start: 07/31/19 14:13 Freq: Status: Active Protocol: Document 08/01/19 09:48 [facility] (Rec: 08/01/19 10:10 [facility] [id number]) Cognitive Factors Limiting Selfcare Function Cognitive Ability Level of Alertness Alert Patient Orientation Name,Year,Place,Situation Attention Span Ability Capable of Focused Attention, Unable to Sustain Attention Ability to Follow Commands Able to Follow One Step Commands Memory Description Short Term Impaired,Working Impaired Safety Awareness Underestimates Need for Assistance Problem Solving Ability Unable to Identify Errors, Needs Assist to Identify Solutions Executive Function Ability Unable to Filter Distractions, Unable to Make Plans,Unable to Organize Plans,Unable to Remember Details Abstract Thinking Ability Unable to Make Generalizations Cognitive Tests SLUMS Re-tested SLUMS and pt score improved to 15/30 however, current score still implies dementia. Pt improved by able to remember the year, recall 1/5 words after time passes, and able to repeat 4 digit number backwards, otherwise same as last time. ACL Pt scored 4.2 out of 6.0, cut off for pt to be able to live by themselves is 4.6/6.0. Pt's score of 4.2 implies 24 hour supervision to remove dangerous objects outside of the visual field and solve any problems arising from minor changes in the environment. Pt may needs prompts to do daily self-care, provide meds/ meals/ and financial legal assistant. Cognitive Comments Cognitive Assessment Comments Pt continues to have deficits in short term memory and easily distracted and has trouble focusing. 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 M7 OT- IP Mobility and Balance Start: 07/31/19 14:13 Freq: Status: Active Protocol: Document 08/01/19 09:48 [facility] (Rec: 08/01/19 10:10 [facility] [id number]) OT- Bed Mobility Assessment Rolling Type of Rolling Roll to Right Level of Assistance Standby Assistance Supine to Sit Supine to Sit Assist Standby Assistance,Bedrails Sit to Supine Sit to Supine Assist Standby Assistance,Bedrails OT-Transfer Assessment Sit to and From Stand Sit to and from Stand Standby Assistance Transfers Transfer Ability Standby Assistance Comments Mobility Comments SBA able to get up out of bed and walk into the bathroom with nursing aid. OT- Balance Assessment Sitting Balance and Reactions Static Sitting Balance Ability Normal Dynamic Sitting Balance Ability Normal Standing Balance and Reactions Static Standing Balance Ability Good Dynamic Standing Balance Ability Fair M8 OT- IP Objective Assessments Start: 07/31/19 14:13 Freq: Status: Active Protocol: Document 07/31/19 14:13 [facility] (Rec: 07/31/19 14:56 [facility] [id number]) OT Gross Range of Motion Upper Extremity Range of Motion Assessment Within Functional Limits OT Strength Upper Extremity Strength Assessment Within Functional Limits OT- Coordination Assessment Upper Extremity Finger to Nose Test Bilateral UE Impaired OT-Muscle Tone Assessment Muscle Tone WNL Yes M9 OT- IP Assessment and Plan Start: 07/31/19 14:13 Freq: Status: Active Protocol: Document 08/01/19 09:48 [facility] (Rec: 08/01/19 10:10 [facility] [id number]) OT Summary Assessment and Plan Potential Rehabilitation Potential Good Analytic Complexity at Evaluation Low Summary OT Impairments Balance,Functional Cognition, Functional Mobility,Grooming, Dressing,Toileting,Bathing, Toilet Transfers,Shower Transfers,Activity Tolerance Progress Towards Goals Slow Progress due to Cognition Assessment Summary Pt on RA and 90-91%. Pt still having difficulty with short term memory and problem solving and scored 15/30 on the SLUMS and 4.2/6.0 on the ACL which implies pt needing to have supervision at all times when at home and strongly recommended that pt not take care of her great grand kids anymore. Goals Self-Feeding Goal Independent Grooming Goal Independent Dressing Goal Independent Toileting Goal Independent Bathing Goal Standby Assistance Toilet Transfer Goal Independent Shower Transfer Goal Contact Guard Assistance Patient/Caregiver Education Goal Demonstrate Energy Conservation and Pacing Days to Meet Goals 2 Frequency of Treatment Frequency Of Treatment Once a Day Treatment Plan OT Treatment Plan ADL Training,Functional Cognition Training,Functional Mobility,Patient/Family Education,Discharge Planning Other Treatment Recommendations and Next Shower, ACL Treatment Focus Discharge Recommendations OT Discharge Recommendations Home with 28/12 Assist,Home Health Home Equipment Needs shower chair Transportation Needs at Discharge Private Vehicle
--- NOTE | 2019-08-01 10:53 | PT.IPTN ---
Current Diagnoses Acute respiratory failure with hypoxia (07/29/19) Physical Therapy Treatment Note M2 PT-IP Current Condition Start: 07/31/19 12:03 Freq: NEEDED Status: Active Protocol: Document 07/31/19 16:23 AW (Rec: 07/31/19 17:02 AW [id number]) Physical Therapy Current Condition Current Condition Evaluation Date 07/31/19 Treatment Diagnosis hypoxia, pneumonia, impaired balance/mobility, reduced activity tolerance Onset Date 07/29/19 Precautions Other Precautions - Droplet precautions. - Per hospitalist, pt with COPD - SpO2 target 88-92% Weight Bearing Status Weight Bearing Status Full Weight Bearing M3 PT-IP Subjective Start: 07/31/19 12:03 Freq: NEEDED Status: Active Protocol: Document 08/01/19 10:53 [facility] (Rec: 08/01/19 13:57 [facility] [id number]) Subjective Physical Therapy Visit Type Type Treatment Note Visit Start Time 10:53 Visit Stop Time 11:23 Total Visit Minutes 30 Number of MILITARY TECHNICIAN Visits 1 Physical Therapy Visit Comments Patient Comments Pt willing to ambulate with therapy. Therapy Pain Assessment Pain When Pain Assessed During Mobility Pain Present Pain Present Denied Pain M4 PT-IP Mobility and Gait Start: 07/31/19 12:03 Freq: NEEDED Status: Active Protocol: Document 08/01/19 10:53 [facility] (Rec: 08/01/19 13:57 [facility] [id number]) PT-Bed Mobility Assessment Supine to Sit Supine to Sit Standby Assistance Scooting Scooting to Edge of Bed Standby Assistance PT-Transfer Assessment Sit to and From Stand Sit to and from Stand Standby Assistance Equipment Transfer Assistive Device None,Gait Belt Transfers Transfer Destination Bed Transfer Technique pt ambulated without AD Transfer Ability Level of Assist Standby Assistance Comments Mobility Comments Pt required SBA to get out of bed. Pt stood from bed SBA and ambulated in tamayo ~250ft w/o AD/SBA-CGA. Pt climbed stairs SBA with bilateral rails. During ambulation pt c/o soreness in right hip. Pt had diffucult time following instructions during four item DGI and had minimal disturbance in gait with vertical head turns and no LOB with horizontal head turns or change in speed. Upon return to room pt use toilet IND, washed hands and returned to bed. Left pt in bed with bed alarm on, pt refused SCD's and all needs within reach. Pt on 1L O2, SpO2 92%. Gait Assessment Gait Gait Assistance Required: Standby Assistance,Contact Guard Assist Distance (Feet) 250 Able to Maintain Weight Bearing Status Yes During Gait Assistive Devices Assistive Device None,Gait Belt Orthotic/Prosthetic Devices or Brace: No Gait Deviations General Gait Pattern Decreased Stride Length, Decreased Feet Clearance, Narrow Based Gait Factors Limiting Gait Function Factors Limiting Gait Function Decreased Activity Tolerance, Decreased Strength,Poor Balance,Poor Safety Awareness Comments Gait Comments Pt ambulated ~250ft w/SBA-CGA with head turns and speed change. Pt on 1L O2 per RN and remained 88-92% during activity. Stair Climbing Assessment Evaluation Level of Assist On Stairs Standby Assistance,1 Person Assistance Devices Stair Climbing Assistive Devices Left Railing,Right Railing Technique/Endurance Stair Climbing Direction Ascend and Descend Stair Climbing Technique Step Over Step Number of Steps Climbed 3 Stair Climbing Set # Repetitions (reps) 4 Comments Stair Climbing Comments Pt able to climb 12 stairs using bilateral rails SBA. M5 PT-IP Objective Assessments Start: 07/31/19 12:03 Freq: NEEDED Status: Active Protocol: Document 07/31/19 16:23 AW (Rec: 07/31/19 17:02 AW [id number]) Orientation Orientation/Cognition Level of Alertness Alert Orientation Name,Month,Place,Situation Language Function Ability No Deficits Noted Safety Awareness Decreased Safety Awareness Gross Range of Motion Lower Extremity ROM Assessment Within Functional Limits Strength Lower Extremity Strength Assessment Bilaterally Impaired Hip 4-/5 Knee 4/5 Ankle 4/5 Sensation Assessment Sensation Gross Sensation WNL Muscle Tone Muscle Tone WNL Yes M6 PT-IP Treatment Start: 07/31/19 12:03 Freq: NEEDED Status: Active Protocol: Document 08/01/19 10:53 [facility] (Rec: 08/01/19 13:57 [facility] [id number]) Physical Therapy Treatment Education Education Provided Precautions,Safety M7 PT-IP Assessment and Plan Start: 07/31/19 12:03 Freq: NEEDED Status: Active Protocol: Document 08/01/19 10:53 [facility] (Rec: 08/01/19 13:57 [facility] [id number]) PT Summary Assessment and Plan Potential Rehabilitation Potential Good Status of Condition at Evaluation Stable Summary Impairments Strength,Balance,Cognition, Transfers,Gait,Activity Tolerance Assessment Summary Pt required SBA for bed mobilty and ambulation in room with pt using arms to surf from bed to counter. Pt ambulated in tamayo w/o AD requiring SBA-CGA and had minor LOB with vertical head turns that pt was able to correct. Pt on 1L O2 (per RN) with SpO2 ranging from 88-92 during tx. Spoke with pt about possible cane use for ambulation and pt refused stating she doesn't need to use a cane. Pt would also benefit from outpatient PT to address balance deficits. Goals Bed Mobility Goal Independent Transfer Goal Independent Gait Goal Independent Gait Distance 250 Other Goals - up/down 13 steps with bilateral rails independent Days to Meet Goals 3 Frequency of Treatment Frequency Of Treatment Once a Day Treatment Plan Physical Therapy Treatment Plan Bed Mobility Training,Transfer Training,Gait Training, Therapeutic Exercise,Balance Retraining,Discharge Planning, Neuromuscular Re-ed, Coordination Retraining Recommendations To Nursing Amount of Assist Needed Standby Assistance,1 Person Assist Discharge Recommendations PT Discharge Recommendations Home with / Assist, Outpatient PT Transportation Needs at Discharge Private Vehicle
--- NOTE | 2019-08-01 11:13 | PC.NURSE ---
Patient ambulated to bathroom and to wash her hands and O2 sat dropped to 85% on RA. Patient was SOB and was coughing up mucous while in the bathroom. Once she returned to bed her O2 sat remained low at 86% after five minutes. Called [facility] and administered 1L O2 via [place] they stated they would set her up for home oxygen.
[2019-08-01] MEDS: CEFTRIAXONE 2 GM/50 ML FROZ.PIGGY IV (13:25)
--- NOTE | 2019-08-01 14:24 | CM.DPC ---
Addendum entered by Yesi Love R.N. 08/01/19 15:37: [facility] Stated that patient could apply for Medicare part B, and can also apply for Medicaid. Also, mentioned that [facility] also has funding to assist, and she can still see a provider, but get billed. It is open enrollment, so patient can apply for Medicare part B. Lurdes will call daughterDorothy, and explain options for her. Encouraged her to see one of the [facility] new providers, or nurse practitioners, for they are seeing new patients. Called Jacobo at [facility]. He stated that they do take Medicare part A, and is covered 100%. He is aware that patient does not have a provider now, but he stated that he would hold the referral and contact daughter about getting provider, and once established, they can start seeing patient. He stated that he can use face to face signed by hospitalist. Went ahead and faxed over face to face, orders, H&P. Requesting nursing, P.T, O.T, MARGIN TRIMMER, and bath aide. MARGIN TRIMMER would also be able to help with resources as well. Let Jacobo know that Sofi keenan, is point of contact. Plan is still for discharge this pm, pending discharge summary. Original Note: DCP Cont: Patient has discharge orders. Dr. Montoya asked about patient having home health, but she does not have a primary care provider. Dr. Montoya stated that she can still sign a face to face until she gets a provider. Have not yet had her sign face to face. Called Sofi keenan. Stated, she was concerned that she might have fever. Encouraged her to talk to patient's nurse with any concerns. Asked her if she was able to talk to resources department down stairs, or JESSY, but stated, she had no time, she was trying to get her mother's house ready for her to arrive. Let her know that hospitalist wanted to order home health, but she needs a primary care provider to follow her. Daughter is aware, and will be contacting resources. This caseworker left a message with Lurdes in resources/JESSY office to call back. P: Patient is to discharge home today. Will need to have a primary care provider before she can have home health. Yesi Love RN/[facility] [place]
--- NOTE | 2019-08-01 14:36 | P.DS_ITS ---
History of Present Illness History of Present Illness Date Patient Seen: 07/29/19 Chief complaint: Flu Like Symptoms Narrative: Written by Tomer ANTON: Ms. Tiffany Yanez is a 73-year-old female who appears older than her stated age with a significant medical history only for hypertension there presents to the hospital for shortness of breath. The patient complains of progressive symptoms of shortness of breath with a cough productive for yellow sputum with a ssociated fevers and chills and right chest wall pain that is mildly pleuritic. Patient is a past heavy smoker with an estimated 90 pack year history. She reports no other sick contacts and denies nasal congestion or sore throat headache or dizziness. She has chest pain as above and endorses a history of palpitations. She has had increasing shortness of breath with cough is above but denies wheezing. She reports no abdominal pain, heartburn, nausea or vomiting. She denies complaints of constipation or diarrhea. She does have a history of urinary urgency and stress incontinence for which she uses depends. She is independent in her ADLs the family endorses general health decline over t he last year with increased forgetfulness and decreased mobility. The patient does not receive routine medical care, she uses a tobacco classer in [place]. Upon arrival to the ER the patient is febrile at 101.4, tachycardic at 119, hypertensive a 211/99 with respiratory rate of 28 saturating 88-90 % on room air. The patient is admitted treated nasal cannula oxygen at 2 L with a decreased heart rate to 103 blood pressure improved to 170/77 and oxygen saturation up to 92%. Chest x-ray obtained which shows by basilar infiltrates consistent with pneumonia, image suggestive of COPD and a prominent hiatal hernia. No EKG was obtained in the ER. On laboratory analysis shows white count of 8.7, hemoglobin of 14.9, hematocrit of 42.3 and platelets of 196. She has increased neutrophil count 89%. Her electrolytes are within normal limits and she has a BUN of 14 and creatinine 0.7 and nonfasting glucose of 95. Her liver function tests are within normal limits. Her her lactic acid is 1.2, proc alcitonin is 0.35, her flu test is negative and proBNP is 140. In the ER the patient received an albuterol nebulizer treatment Solu-Medrol 80 mg IV and Toradol. She started on Rocephin 1 g IV and Zithromax 500 mg IV. The patient is admitted to the medicine service for community-acquired pneumonia. Discharge Providers Provider Date of admission: 07/29/19 18:11 Discharge Date: 08/01/19 Primary care physician: Tomer Calloway DO Consults: 07/29/19 19:21 Consult to Dietitian, Adult Routine Comment: Reason For Exam: unintentional weight loss 07/29/19 20:10 Consult to Respiratory Therapy Evaluate & Treat Comment: Physician Instructions: Evaluate and treat 07/31/19 10:13 Consult to Occupational Therapy Evaluate & Treat Comment: Physician Instructions: Evaluate and treat Consult to Physical Therapy Evaluate & Treat Comment: Physician Instructions: Evaluate and Treat Discharge provider: Sveta Montoya DO Summary Hospital Course Discharge Diagnosis: 1. Acute hypoxemic respiratory failure, present on admission. Resolved. 2. Acute RSV with superimposed strep pneumoniae bacterial pneumonia, present on admission. Resolving. 3. Right-sided pleuritic chest pain, present on admission. Resolved. 4. Chronic obstructive lung disease, with probable acute exacerbation due to viral illness, present on admission. Acute exacerbation resolved. 5. Hypertension, chronic, present on admission. Stable. 6. 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 Stable. Hospital Course: Tiffany Yanez is a 73-year-old female with poor insight and a past medical history significant for hypertension now on treated and untreated COPD who presented to the ED with progressive worsening shortness of breath. 1. Acute hypoxemic respiratory failure, present on admission. Resolved. -Patient presented with progressive worsening shortness of breath and dyspnea on exertion. -Patient has a significant smoking history of approximately 90-100 pack-year history and reports she quit several months ago. Of note, patient told admitting provider that she had quit 10 years ago. -Continued respiratory therapy evaluation and treatment. Continue supplemental oxygen as necessary to keep oxygen saturation 88-92% and slowly titrate off as tolerated. Patient now on room air maintaining oxygen saturations in the mid 90s. RT [address] tested patient who dropped oxygen saturation to 85% but then recov ered quickly less than a minute and do not feel patient needs home oxygen. Patient does not have PCP and highly recommend she establish care in the near future. 2. Acute RSV with superimposed strep pneumoniae bacterial pneumonia, present on admission. Resolving. -Ordered pneumonia workup including: Respiratory viral PCR positive for RSV. Urine antigens not obtained. Sputum culture positive for strep pneumoniae. Blood cultures x2 have no growth to date. -Received ceftriaxone 1 g IV x1 and azithromycin 500 mg IV x1 in ED. Continued ceftriaxone 2 g IV daily and azithromycin 500 mg x 3 total doses. Discharged with cefdinir 300 mg twice daily for 3 additional days to complete total of 7 d ays of antibiotics. -Continued supportive care with: Mucinex 1200 mg twice daily and Acapella 10 bull es every 1 hour while awake 3. Right-sided pleuritic chest pain, present on admission. Resolved. -Patient presented with right-sided chest wall pain that was not reproducible with palpation but described as pleuritic in character. Patient with family history of CVD in her father. -EKG did not demonstrate any acute ischemic changes. -Continued acetaminophen 650 mg every 6 hours as needed for pain. Discontinued oxycodone as not indicated. 4. Chronic obstructive lung disease, with probable acute exacerbation due to viral illness, present on admission. Acute exacerbation resolved. -Patient presented with progressive worsening shortness of breath, dyspnea on exertion and wheezing. -Received methylprednisolone 80 mg IV x1 in ED. Did not continue steroids as patient's wheezing has resolved. -Continued DuoNeb every 6 hours as needed for shortness of breath or wheezing, and albuterol every 2 hours as needed for shortness of breath or wheezing. Discharge with Spiriva 1 puff daily and albuterol 2 puffs every 4-6 hours as needed for rescue inhaler only. 5. Hypertension, chronic, present on admission. Stable. -Patient with a prior history of hypertension previously on antihypertensives that she self discontinued. -Patient has been intermittently hypertensive with SBP 150's. -Consider implementation of antihypertensive such as losartan 25 mg daily. Patient is adverse to medications. 6. 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 Stable. -Occupational therapy performed SLUMS for which the patient scored a +15/30 indicative of dementia. -Patient masks memory recall deficit well when she is not around family and she often speaks about the past as the present. Exam Vital Signs (past 8 hours): - 08/01/19 08:10 08/01/19 09:34 08/01/19 09:35 Temperature 98.8 F Pulse Rate 75 Respiratory Rate 16 Blood Pressure 143/81 H Pulse Oximetry 90 L 92 85 L 08/01/19 13:37 Temperature 99.2 F Pulse Rate 73 Respiratory Rate 16 Blood Pressure 148/87 H Pulse Oximetry 91 Oxygen Delivery Method Room Air Oxygen Flow Rate 0 Narrative Exam Narrative: General: Older thin female lying in bed and in no acute distress, appears older than stated age, well-developed, well-nourished, poor insight into disease processes but otherwise appropriately interactive. HEENT: Normocephalic, atraumatic. External ears without defect. Pupils equal, round, and reactive to light. Anicteric sclerae, moist conjunctivae, and no lid lag. Oropharynx free of erythema and cobble stoning with moist mucosa. Neck: Supple with full range of motion. No lymphadenopathy or thyromegaly. Cardiovascular: Regular rate and rhythm without murmurs, rubs, or gallops appreciated. Pulmonary: Scattered rhonchi throughout all lung schneider that is improved. No wheezes or crackles. Normal respiratory effort with no use of accessory muscles. Abdomen: Soft, bowel sounds present, ontender, nondistended. No hepatosplenomegaly or masses appreciated. Extremities: No clubbing, cyanosis, or edema. Skin: Normal temperature, turgor, and texture; no rash, ulcers, or subcutaneous nodules appreciated. Neurological: Cranial nerves grossly intact. Psychiatric: Normal mood and affect. Poor insight. Alert and oriented to person, place, and time. Mild to moderate dementia with short and possibly long-term memory recall deficit. Objective Labs Result Diagrams: 08/01/19 05:32 08/01/19 05:32 Labs: Laboratory Results - last 24 hr 08/01/19 08/01/19 05:32 05:32 WBC 5.7 RBC 4.27 Hgb 13.4 Hct 39.5 MCV 92.5 MCH 31.3 MCHC 33.8 RDW 13.1 Plt Count 235 Neut % (Auto) 64.7 Lymph % (Auto) 24.0 L Granite % (Auto) 10.3 Eos % (Auto) 0.7 L Baso % (Auto) 0.3 Neut # (Auto) 3700 Lymph # (Auto) 1400 Granite # (Auto) 600 Eos # (Auto) 0 Baso # (Auto) 0 Sodium 138 Potassium 4.2 Chloride 105 Carbon Dioxide 26 BUN 12 Creatinine 0.70 Estimated GFR > 60.0 BUN/Creatinine Ratio 17.1 Glucose 99 Calcium 8.3 L Discharge Plan Discharge Plan Patient Disposition: Home Health Service Discharge comment: You are being discharged home physical and occupational therapy. You had strep pneumonia and RSV (respiratory syncytial virus). You have been prescribed cefdinir 300 mg twice daily for 3 additional days to complete treatment of strep pneumoniae. You have also been prescribed albuterol inhaler 2 puffs every 4-6 hours as needed only for rescue for shortness of breath or wheezing and Spiriva 1 cap daily to prevent COPD exacerbation and hospitalization. You may continue taking Mucinex 1200 mg twice daily as needed to thin mucus secretions/sputum. Please try to stay well hydrated and get plenty of rest. Please establish care with a primary care provider in the [facility] to follow-up regarding your hospitalization and preventative care. You will need to have pulmonary or lung function test performed in 3 months to assess how severe your COPD is and to make sure you do not have any other underlying lung disease. Discharge orders & Medications Prescriptions: New guaifenesin [Mucus Relief ER] 600 mg Tablet Extended Release 12hr 1,200 mg PO BID Qty: 10 RF: 0 tiotropium bromide 18 mcg capsule, w/inhalation device 1 cap INHALATION DAILY Qty: 30 RF: 0 albuterol sulfate 90 mcg/actuation HFA aerosol inhaler 2 puff INHALATION Q4-6H PRN (Reason: shortness of breath or wheezing) Qty: 18 RF: 0 cefdinir 300 mg capsule 300 mg PO BID Qty: 6 RF: 0 Diet/Activity/Treatments Diet: Diet as Tolerated, Low-fat, Low-sodium and Low-cholesterol Activity: Activity as tolerated Visit Report/Discharge Packet Instructions: Respiratory Syncytial Virus, DI for Chronic Obstructive Pulmonary Disease, DI for Pneumonia -- Adult Discharge Data Primary Care Provider: Tomer Calloway
[2019-08-01] MEDS: UMECLIDINIUM/VILANTEROL 62.5/2 14 PUFF INHALER INH (18:22)
--- NOTE | 2019-08-01 18:31 | PC.NURSE ---
discharge instruction provided to patient and daughter. scripts given to daughter. IV removed, pt tolerated well. tele removed. belongings returned to patient.
== END 2019-08-01 18:21 | disposition home health service (06) | DRG 193 ==
LOC: ED 15:56 → AC 18:58
PROVIDERS: Emergency Medicine; Nurse Practitioner Adult Health; Admitting Provider Internal Medicine; Emergency Provider Nurse Practitioner Family; PCP Internal Medicine; Referring Provider Nurse Practitioner Family; Visit Provider Internal Medicine
DX: J13 Pneumonia due to Streptococcus pneumoniae (principal); J96.01 Acute respiratory failure with hypoxia; J44.0 Chronic obstructive pulmonary disease with (acute) lower respiratory infection; J12.1 Respiratory syncytial virus pneumonia; R07.81 Pleurodynia; F03.90 Unspecified dementia, unspecified severity, without behavioral disturbance, psychotic disturbance, mood disturbance, and anxiety; Z87.891 Personal history of nicotine dependence
CPT/HCPCS: 36415; 71046; 80048; 80053; 81001; 83605; 83735; 83880; 84145; 85025; 87040; 87070; 87077; 87086; 87186; 87205; 87502; 87633; 93005; 94618; 94640; 94668; 94760; 94762; 96365; 96368; 96375; 97116; 97129; 97130; 97161; 97165; 97530; 99285; J0696; J1650; J1885; J2930

== ENCOUNTER 2024-02-01 16:17 | Inpatient (IN) | payer MEDICARE, MEDICAID, SELFPAY ==
[2019-07-29 19:02] VITALS: BMI 20.5
[2024-02-01] VITALS (29 sets, daily range): BP systolic 103–234; BP diastolic 55–140; PULSE 69–115; RESP 12–28; TEMP 36.3–36.8; O2SAT 93–98; BMI 27.3
--- NOTE | 2024-02-01 16:41 | EKG_ITS ---
[place] [id number] [place] [id number] Test Date: 2024-02-01 Pat Name: Tiffany Yanez Department: [facility] Room: Gender: Female Test Desk Supervisor: SALO : 1945 Requested By: Order Number: [id number] Reading MD: Albino Mc Measurements Intervals [place] Rate: 70 P: 34 NH: 164 QRS: 4 QRSD: 84 T: 57 QT: 378 QTc: 408 Interpretive Statements Sinus rhythm with premature atrial complexes with aberrant conduction Electronically Signed On 02-01-2024 18:55:39 PDT by Albino Mc
--- NOTE | 2024-02-01 16:41 | DI.RAD.S_ITS ---
PROCEDURE: XR CHEST 1V INDICATIONS: Shortness of breath TECHNIQUE: One view of the chest was acquired. COMPARISON: [facility], CR, XR CHEST 2V, 07/29/2019, 14:27. FINDINGS: Surgical changes and devices: None. Lungs and pleura: Very low lung volumes. Mildly prominent interstitium. There is probably elevation of the left hemidiaphragm Mediastinum: Heart borders are obscured. Possible hiatal hernia and air under the left hemidiaphragm probably representing gastric or colonic luminal structures. Bones and chest wall: Degenerative findings IMPRESSION: Very low lung volumes with left hemidiaphragm elevation. Background interstitial changes representing edema or atypical infection. Possible hiatal hernia and air under the left hemidiaphragm probably representing distended gastric or colonic luminal structures, but indeterminate on radiography Limited single view study. Dictated by: Kurt Centeno M.D. on 02/01/2024 at 17:31 Approved by: Kurt Centeno M.D. on 02/01/2024 at 17:33
--- NOTE | 2024-02-01 16:42 | DI.RAD.S_ITS ---
PROCEDURE: XR KNEE LT 1TO2V INDICATIONS: fall/pain TECHNIQUE: 2 views of the knee were acquired. COMPARISON: None. FINDINGS: Bones: Mild background degenerative changes. No acute displaced fracture or dislocation. Soft tissues: Vascular calcifications. No significant effusion on lateral view. IMPRESSION: No acute radiographic abnormality. Mild background degenerative changes. If there is high concern for further derangement, consider MRI evaluation. Dictated by: Kurt Centeno M.D. on 02/01/2024 at 17:33 Approved by: Kurt Centeno M.D. on 02/01/2024 at 17:33
[2024-02-01 16:59] LABS: Add Manual Diff / Slide Review NO; Basophils Absolute Auto 0 /uL (0-100); Basophils Percent Auto 0.7 % (0-2); Eosinophils Absolute Auto 100 /uL (0-450); Eosinophils Percent Auto 1.9 % (2-4); Hematocrit 37.4 % (36-46); Hemoglobin 12.1 g/dL (12.0-16.0); Lymphocytes Absolute Auto 1500 /uL (1100-4500); Lymphocytes Percent Auto 23.5 % (25-40); Mean Corpuscular HGB Conc 32.3 % (30-36); Mean Corpuscular Hemoglobin 27.4 PG (26-34); Mean Corpuscular Volume 84.9 fL (80-100); Monocytes Absolute Auto 500 /uL (0-900); Monocytes Percent Auto 8.6 % (3-14); Neutrophils Absolute Auto 4100 /uL (1500-7000); Neutrophils Percent Auto 65.3 % (50-75); Platelet Count 253 X10^3/uL (150-400); Red Blood Cell Count 4.41 X10^6/uL (4.0-5.2); Red Cell Distribution Width 17.2 % (11.6-14.8); White Blood Cell Count 6.2 X10^3/uL (4.5-11.0)
[2024-02-01 17:04] LABS: Prothrombin Time 11.4 SECONDS (9.4-12.5)
[2024-02-01 17:12] LABS: Lactate (Lactic Acid) 1.4 mmol/L (0.7-2.1)
[2024-02-01 17:13] LABS: Alanine Aminotransferase 15 IU/L (<35); Albumin 3.8 g/dL (3.5-5.0); Albumin Globulin Ratio 1.2 (1.0-2.8); Alkaline Phosphatase 93 U/L (38-126); Aspartate Aminotransferase 25 IU/L (14-36); BUN Creatinine Ratio 48.5 (6-22); Bilirubin Total 0.5 mg/dL (0.2-1.3); Blood Urea Nitrogen 33 mg/dL (7-17); Calcium 8.9 mg/dL (8.4-10.2); Carbon Dioxide 26 mmol/L (22-32); Chloride 106 mmol/L (98-107); Estimated Glomerular Filt Rate > 60 mL/min (>60); Globulin 3.1 g/dL (1.7-4.1); Glucose 121 mg/dL (80-110); HEMOLYSIS 21 (0-50); Potassium 4.2 mmol/L (3.4-5.1); Sodium 137 mmol/L (137-145); Total Protein 6.9 g/dL (6.3-8.2)
[2024-02-01 17:24] LABS: NT-proBNP (BNP-Adult 18+) 144 pg/mL (<450); Troponin I < 0.012 ng/mL (0.01-0.034)
--- NOTE | 2024-02-01 18:28 | CM.SWNOTE ---
ED STONEMASON Note Patient is 78 y/o female who presents to ED with daughter and granddaughter due to concern for patient's recent GLF, swelling legs and feet. It is reported that patient has Dementia. Patient does not have PCP, patient has hx of not going to doctor with preference for Naturopathic providers. Patient has Medicare Part A listed but registration is unable to confirm this insurance. Patient has hx of Hypoxia and Pneumonia. STONEMASON enters room to meet with patient, patient presents as A/Ox1. STONEMASON speaks with patient's daughter Sofi (who works in [place]) and granddaughter Claire who works as as COPY LATHE OPERATOR at a SNF. Patient resides with daughter in [place]. It is reported that patient does not manage any ADLs independently and daughter is primary caregiver, daughter also works 40 hours a week. It is reported that patient uses walking sticks to walk, uses adult briefs for toileting. It is reported that patient does not leave the house very often. It is reported that daughter is not an official DPOA but has taken on the role as patient's primary internet and e business project manager and decision maker. Daughter is unsure about patient's insurance situation. It is reported that patient has a daughter in [place] and other family members in [facility] that do not assist in patient's care or have regular contact with patient. It is reported that patient has resided with daughter for the last 7 years. STONEMASON discusses [place], [place] and Medicaid. [facility]EMASON [facility] with [facility]. STONEMASON calls [facility] and [facility] regarding assistance for intake phone application for patient with daughter's consent. STONEMASON assists daughter in filling out Medicaid application for patient and faxes application to [facility]. STONEMASON provides daughter with senior resource guide and private pay caregiver information. STONEMASON to send hand off email to ED [facility] in the instance that there are any follow up calls from [employer] or [facility] regarding patient. ED provider has not yet evaluated patient to determine disposition. Family to f/u with [facility] to seek insurance coverage and higher level of care needs for patient. Dorota Anand, TIG WELDER
[2024-02-01 18:41] LABS: Appearance Urine UA CLOUDY; Bilirubin Urine UA NEGATIVE (NEGATIVE); Color Urine UA YELLOW; Glucose Urine UA NEGATIVE (Negative); Ketones Urine UA NEGATIVE (NEGATIVE); Leukocyte Esterase Urine UA TRACE (NEGATIVE); Nitrite Urine UA POSITIVE (Negative); Occult Blood Urine UA NEGATIVE (Negative); Protein Urine UA NEGATIVE (Negative); Urobilinogen Urine UA 0.2 E.U./dL (0.2)
[2024-02-01 18:43] LABS: pH Urine UA 7.5 (4.5-8.0)
--- NOTE | 2024-02-01 18:47 | ED.FALL ---
HPI - Fall General Chief Complaint: Fall Stated Complaint: fall, swollen feet, dementia Time Seen by Provider: 02/01/24 18:03 Source: family Mode of arrival: EMS Limitations: other (Dementia) History of Present Illness HPI Narrative: Patient is a 78-year-old female. Has a history of dementia. Takes no medications. Has no diagnosed medical problems however potentially has had issues with high blood pressure in the past. He was brought in for evaluation of weakness, swollen feet. HPI is provided by the patient's daughter. Patient is unable to provide any HPI or review of systems. Per report the patient lives with her daughter. Per report from the patient's daughter she found the patient this morning sitting on the floor of the house. No signs of trauma. Patient not on anticoagulation. Unsure the patient tripped and fell or was just weak. Initially patient was pointing to her knee is potentially an area of discomfort no other reported discomfort. No signs of external trauma. Patient's daughter states that she has been weak most of the day. Potentially more confused but this is difficult for her to assess. Related Data Home Medications Medication Instructions Recorded Confirmed naproxen 220 mg PO BID PRN Pain (Scale 02/01/24 02/01/24 Score 1-3) Allergies Allergy/AdvReac Type Severity Reaction Status Date / Time Penicillins Allergy Severe Anaphylaxis Verified 02/01/24 20:05 Sulfa (Sulfonamide Allergy Severe ANAPHYLAXIS Verified 02/01/24 20:05 Antibiotics) Review of Systems Review of Systems ROS Unobtainable: Unobtainable due to mental status/LOC Patient History Medical History Palpitations H/O: HTN (hypertension) Surgical History No pertinent past surgical history Family History (Updated 07/29/19 @ 21:50 by SLOANE Hoffmann) Father Cardiac disease Mother No significant medical problems Social History household members: family Smoking Status: Former smoker Smoking Status: Former smoker alcohol intake frequency: holidays/special occasions only Substance Use Type: does not use Exam Initial Vital Signs Initial Vital Signs: Vital Signs Temperature 98.2 F 02/01/24 16:27 Pulse Rate 76 08/27/24 16:27 Respiratory Rate 18 02/01/24 16:27 Blood Pressure 206/140 H 02/01/24 16:27 Pulse Oximetry 97 02/01/24 16:27 Oxygen Delivery Method Room Air 02/01/24 16:27 Const General: comfortable and No ill appearing [facility] Head: normal to inspection, normocephalic, No abrasion and No contusion Resp Effort & Inspection: normal respiratory effort Auscultation: clear to auscultation bilaterally Cardio Rate: regular rate Rhythm: regular rhythm Skin General: no rashes or lesions noted Neuro General: patient alert, patient awake and moves all extremities Extrem General: edema Other: No gross deformities Scores GCS Merle coma scale eye opening: Spontaneous Merle coma scale verbal response: Confused Merle coma scale motor response: Obey commands Merle coma scale total score: 14 Course Orders Ordered: ED Orders 02/01/24 16:41 XR chest 1V Stat EKG-12 Lead Stat Measure peak expiratory flow ONCE RT Consult Eval and Treat NOW 02/01/24 16:42 XR knee LT 1to2V Stat 02/01/24 16:47 Complete Blood Count AUTO DIFF Stat Comprehensive Metabolic Panel Stat Lactate (Lactic Acid) Stat NT-proBNP (BNP-Adult 18+) Stat Prothrombin Time INR Stat Troponin I Stat 02/01/24 17:06 Consult to FLOOR SANDING MACHINE OPERATOR - Map Drafter Stat 02/01/24 18:30 Urinalysis and Microscopic Stat Urine Culture Stat 02/01/24 20:03 Blood Culture Stat Acetaminophen (Acetaminophen 325 Mg Tablet) 650 mg PO Q6H PRN PRN Reason: Fever/Mild Pain (1-3) Hydralazine HCl (Hydralazine 20 Mg/Ml Vial) 10 mg IV Q6HR PRN PRN Reason: for SBP > 180 Last Admin: 02/01/24 22:29 Dose: 10 mg Documented By: ANALILIA Ceftriaxone Sodium 1,000 mg/ (Sodium Chloride) 100 mls @ 200 mls/hr IV Q24H JOVANA Lisinopril (Lisinopril 10 Mg Tablet) 10 mg PO DAILY JOVANA Naloxone HCl (Naloxone 0.4 Mg/Ml Vial) 0.2 mg IV Q2MIN PRN PRN Reason: Opiate Reversal Ondansetron HCl (Ondansetron 4 Mg Odt) 4 mg PO Q8HR PRN PRN Reason: Nausea And Vomiting Discontinued Medications Ceftriaxone Sodium 1,000 mg/ (Sodium Chloride) 100 mls @ 200 mls/hr IV NOW ONE Stop: 02/01/24 19:39 Last Infusion: 02/01/24 21:35 Dose: Infused Documented By: Admin: 02/01/24 20:15 Dose: 200 mls/hr Documented By: SACHA Vital Signs Vital signs: Vital Signs - 8 hr 02/01/24 16:27 02/01/24 16:52 02/01/24 16:54 Temperature 98.2 F Pulse Rate 76 72 Respiratory Rate 18 Blood Pressure 206/140 H 161/78 H Pulse Oximetry 97 Oxygen Delivery Method Room Air 02/01/24 16:54 02/01/24 17:00 02/01/24 17:01 Temperature Pulse Rate 75 73 Respiratory Rate 20 Blood Pressure 174/86 H Pulse Oximetry 95 94 Oxygen Delivery Method Room Air 02/01/24 17:01 02/01/24 17:30 02/01/24 17:34 Temperature Pulse Rate 77 69 Respiratory Rate 27 H Blood Pressure 181/100 H Pulse Oximetry 97 Oxygen Delivery Method 02/01/24 17:34 02/01/24 18:00 02/01/24 18:03 Temperature Pulse Rate 74 73 Respiratory Rate 25 H 28 H Blood Pressure 194/86 H Pulse Oximetry 97 97 Oxygen Delivery Method Room Air 02/01/24 18:03 02/01/24 18:30 02/01/24 18:32 Temperature Pulse Rate 81 99 H Respiratory Rate 22 Blood Pressure 207/94 H Pulse Oximetry 97 93 Oxygen Delivery Method 02/01/24 18:32 02/01/24 19:00 02/01/24 19:20 Temperature Pulse Rate 85 77 Respiratory Rate 23 22 Blood Pressure 234/98 H Pulse Oximetry 96 97 Oxygen Delivery Method Room Air 02/01/24 19:20 02/01/24 19:30 02/01/24 19:32 Temperature Pulse Rate 93 H 79 77 Respiratory Rate 19 27 H 19 Blood Pressure Pulse Oximetry 97 97 98 Oxygen Delivery Method 02/01/24 19:32 02/01/24 20:00 Temperature Pulse Rate 81 Respiratory Rate 19 Blood Pressure 174/90 H Pulse Oximetry Oxygen Delivery Method MDM - Fall Lab Data Attestation: I reviewed the patient's lab results. 02/01/24 16:47 02/01/24 16:47 Labs: Lab Results 08/27/24 08/27/24 Range/Units 16:47 18:30 WBC 6.2 (4.5-11.0) X10^3/uL RBC 4.41 (4.0-5.2) X10^6/uL Hgb 12.1 (12.0-16.0) g/dL Hct 37.4 (36-46) % MCV 84.9 (80-100) fL MCH 27.4 (26-34) PG MCHC 32.3 (30-36) % RDW 17.2 H (11.6-14.8) % Plt Count 253 (150-400) X10^3/uL Neut % (Auto) 65.3 (50-75) % Lymph % (Auto) 23.5 L (25-40) % [place] % (Auto) 8.6 (3-14) % Eos % (Auto) 1.9 L (2-4) % Baso % (Auto) 0.7 (0-2) % Neut # (Auto) 4100 (2296-2887) /uL Lymph # (Auto) 1500 (2262-7699) /uL [place] # (Auto) 500 (0-900) /uL Eos # (Auto) 100 (0-450) /uL Baso # (Auto) 0 (0-100) /uL PT 11.4 (9.4-12.5) SECONDS INR 1.0 (0.9-1.3) Sodium 137 (137-145) mmol/L Potassium 4.2 (3.4-5.1) mmol/L Chloride 106 (98-107) mmol/L Carbon Dioxide 26 (22-32) mmol/L BUN 33 H (7-17) mg/dL Creatinine 0.68 (0.52-1.04) mg/dL Estimated GFR > 60 (>60) mL/min BUN/Creatinine Ratio 48.5 H (6-22) Glucose 121 H (80-110) mg/dL Lactate 1.4 (0.7-2.1) mmol/L Calcium 8.9 (8.4-10.2) mg/dL Total Bilirubin 0.5 (0.2-1.3) mg/dL AST 25 (14-36) IU/L ALT 15 (<35) IU/L Alkaline Phosphatase 93 (38-126) U/L Troponin I < 0.012 (0.01-0.034) ng/mL NT-Pro-B Natriuret Pep 144 (<450) pg/mL Total Protein 6.9 (6.3-8.2) g/dL Albumin 3.8 (3.5-5.0) g/dL Globulin 3.1 (1.7-4.1) g/dL Albumin/Globulin Ratio 1.2 (1.0-2.8) Urine Color Yellow Urine Appearance Cloudy Urine pH 7.5 (4.5-8.0) Ur Specific [place] 1.010 (1.000-1.035) Urine Protein Negative (Negative) Urine Glucose (UA) Negative (Negative) g/dL Urine Ketones Negative (NEGATIVE) Urine Occult Blood Negative (Negative) Urine Nitrate Positive H (Negative) Urine Bilirubin Negative (NEGATIVE) Urine Urobilinogen 0.2 (0.2) E.U./dL Ur Leukocyte Esterase Trace H (NEGATIVE) Urine RBC None seen (0-5/HPF) Urine WBC 1-5/hpf (0-5/HPF) Ur Squamous Epith Cells 0-1 /hpf (0-5/HPF) Triple Phos Crystals Occasional Amorphous Sediment 1+ Urine Bacteria Moderate (10-30) H (None) Ur Culture Indicated? Specimen cultured Vol Urine Centrifuged 10ml (spun) Imaging Data Chest x-ray: Radiologist's Impression: PROCEDURE: XR CHEST 1V INDICATIONS: Shortness of breath TECHNIQUE: One view of the chest was acquired. COMPARISON: [facility], , XR CHEST 2V, 07/29/2019, 14:27. FINDINGS: Surgical changes and devices: None. Lungs and pleura: Very low lung volumes. Mildly prominent interstitium. There is probably elevation of the left hemidiaphragm Mediastinum: Heart borders are obscured. Possible hiatal hernia and air under the left hemidiaphragm probably representing gastric or colonic luminal structures. Bones and chest wall: Degenerative findings IMPRESSION: Very low lung volumes with left hemidiaphragm elevation. Background interstitial changes representing edema or atypical infection. Possible hiatal hernia and air under the left hemidiaphragm probably representing distended gastric or colonic luminal structures, but indeterminate on radiography Extremity x-ray #1: Radiologist's Impression: PROCEDURE: XR KNEE LT 1TO2V INDICATIONS: fall/pain TECHNIQUE: 2 views of the knee were acquired. COMPARISON: None. FINDINGS: Bones: Mild background degenerative changes. No acute displaced fracture or dislocation. Soft tissues: Vascular calcifications. No significant effusion on lateral view. IMPRESSION: No acute radiographic abnormality. Mild background degenerative changes. If there is high concern for further derangement, consider MRI evaluation. [facility] Narrative Medical decision making narrative: Patient was able to ambulate with a walker but was very unsteady on her feet. She does have a nitrite positive urine. No leukocytosis. Was given antibiotics secondary to the positive nitrites. No gross deformities noted on the extremities. She does have lower extremity edema but not in heart failure. She was hypertensive. Does not take any medications at home for high blood pressure. Low suspicion for ACS. Given the patient's weakness and high blood pressure and UTI she would benefit from admission to the hospital. Discussed the case with hospitalist who will admit. Discussed the need for admission with the patient's daughter at bedside who expressed understanding and agreement with plan. Discharge Plan Departure Patient Disposition: Admitted As Inpatient Clinical Impression: Urinary tract infection, Dementia, Hypertension, Weakness Admit Date/Time: 02/01/24 20:01 Admit Provider: Javon Fan
[2024-02-01 18:49] LABS: Amorphous Sediment Urine 1+; Bacteria Urine Moderate (10-30); Culture Indicated Urine Specimen Cultured; RBC Urine None Seen (0-5/HPF); Squamous Epithelial Cell Urine 0-1 /HPF (0-5/HPF); Triple Phosphate Crystal Urine Occasional; Urine Volume 10mL (spun); WBC Urine 1-5/HPF (0-5/HPF)
--- NOTE | 2024-02-01 19:59 | PC.NURSE ---
Unable to walk w/o two strong assist. Dr. Benson aware
--- NOTE | 2024-02-01 20:08 | PC.NURSE ---
Per daughter and primary caregiver pt takes no prescription medication.
[2024-02-01] MEDS: cefTRIAXone 1,000 MG in SODIUM CHLORIDE 0.9% 100 ML 200 MG IV (20:15)
--- NOTE | 2024-02-01 20:29 | P.HP_ITS ---
History of Present Illness History of Present Illness Date Patient Seen: 02/01/24 Chief complaint: fall, swollen feet, dementia Narrative: 78 y/o with PMH of dementia, HTN, former smoker, who presented to ED acutely confused, after she sustained GLF at home. Unable to provide history that was obtained from the daughter who found her on the floor. She did not sustain significant injuries in the presumed fall. Daughter reported on acute confusion, being off her baseline which is mild cognitive deficits, that are getting worse lately. ED workup shows UTI. Consistently hypertensive in the ED with SBP > 200. Confused, presumably encephalopathic without acute focal motor deficits. [facility] Medical History Palpitations H/O: HTN (hypertension) Surgical History No pertinent past surgical history Family History (Updated 07/29/19 @ 21:50 by SLOANE Hoffmann) Father Cardiac disease Mother No significant medical problems Social History household members: family Smoking Status: Former smoker Meds Home Medications and Allergies Home Medications Medication Instructions Recorded Confirmed Type naproxen 220 mg PO BID PRN Pain (Scale 02/01/24 02/01/24 History Score 1-3) Allergies Allergy/AdvReac Type Severity Reaction Status Date / Time Penicillins Allergy Severe Anaphylaxis Verified 02/01/24 20:05 Sulfa (Sulfonamide Allergy Severe ANAPHYLAXIS Verified 02/01/24 20:05 Antibiotics) Review of Systems Review of Systems Narrative: Unobtainable due to dementia and encephalopathy Daughter provided some history Cardiovascular Comments: she did not complain on chest pain Respiratory Comments: not short of breath, w/o cough Gastrointestinal Comments: w/o complaints Genitourinary Comments: w/o history of UTIs Neurologic Comments: progressing dementia - memory deficits Psychiatric Comments: not delusional Exam Vital Signs (past 8 hours): - 02/01/24 16:27 02/01/24 16:52 02/01/24 16:54 Temperature 98.2 F Pulse Rate 76 72 Respiratory Rate 18 Blood Pressure 206/140 H 161/78 H Pulse Oximetry 97 Oxygen Delivery Method Room Air 02/01/24 16:54 02/01/24 17:00 02/01/24 17:01 Temperature Pulse Rate 75 73 Respiratory Rate 20 Blood Pressure 174/86 H Pulse Oximetry 95 94 Oxygen Delivery Method Room Air 02/01/24 17:01 02/01/24 17:30 02/01/24 17:34 Temperature Pulse Rate 77 69 Respiratory Rate 27 H Blood Pressure 181/100 H Pulse Oximetry 97 Oxygen Delivery Method 02/01/24 17:34 02/01/24 18:00 02/01/24 18:03 Temperature Pulse Rate 74 73 Respiratory Rate 25 H 28 H Blood Pressure 194/86 H Pulse Oximetry 97 97 Oxygen Delivery Method Room Air 02/01/24 18:03 02/01/24 18:30 02/01/24 18:32 Temperature Pulse Rate 81 99 H Respiratory Rate 22 Blood Pressure 207/94 H Pulse Oximetry 97 93 Oxygen Delivery Method 02/01/24 18:32 02/01/24 19:00 02/01/24 19:20 Temperature Pulse Rate 85 77 Respiratory Rate 23 22 Blood Pressure 234/98 H Pulse Oximetry 96 97 Oxygen Delivery Method Room Air 02/01/24 19:20 02/01/24 19:30 02/01/24 19:32 Temperature Pulse Rate 93 H 79 77 Respiratory Rate 19 27 H 19 Blood Pressure Pulse Oximetry 97 97 98 Oxygen Delivery Method 02/01/24 19:32 02/01/24 20:00 02/01/24 20:07 Temperature Pulse Rate 81 75 Respiratory Rate 19 16 Blood Pressure 174/90 H 207/93 H Pulse Oximetry Oxygen Delivery Method Oxygen Delivery Method Room Air Const Other: in no distress, laying in bed, daughter at bedside HENMT Other: atraumatic, normocephalic Eyes Other: eomi Neck Other: supple Resp Other: normal respiratory effort Cardio Other: RRR GI Other: soft, not tender or distended Neuro Other: cognitive deficits Extrem Other: w/o swelling Psych Other: mood appropriate Objective Labs 02/01/24 16:47 02/01/24 16:47 Labs: Laboratory Results - last 24 hr 02/01/24 02/01/24 16:47 18:30 WBC 6.2 RBC 4.41 Hgb 12.1 Hct 37.4 MCV 84.9 MCH 27.4 MCHC 32.3 RDW 17.2 H Plt Count 253 Neut % (Auto) 65.3 Lymph % (Auto) 23.5 L [place] % (Auto) 8.6 Eos % (Auto) 1.9 L Baso % (Auto) 0.7 Neut # (Auto) 4100 Lymph # (Auto) 1500 [place] # (Auto) 500 Eos # (Auto) 100 Baso # (Auto) 0 PT 11.4 INR 1.0 Sodium 137 Potassium 4.2 Chloride 106 Carbon Dioxide 26 BUN 33 H Creatinine 0.68 Estimated GFR > 60 BUN/Creatinine Ratio 48.5 H Glucose 121 H Lactate 1.4 Calcium 8.9 Total Bilirubin 0.5 AST 25 ALT 15 Alkaline Phosphatase 93 Troponin I < 0.012 NT-Pro-B Natriuret Pep 144 Total Protein 6.9 Albumin 3.8 Globulin 3.1 Albumin/Globulin Ratio 1.2 Urine Color Yellow Urine Appearance Cloudy Urine pH 7.5 Ur Specific [place] 1.010 Urine Protein Negative Urine Glucose (UA) Negative Urine Ketones Negative Urine Occult Blood Negative Urine Nitrate Positive H Urine Bilirubin Negative Urine Urobilinogen 0.2 Ur Leukocyte Esterase Trace H Urine RBC None seen Urine WBC 1-5/hpf Ur Squamous Epith Cells 0-1 /hpf Triple Phos Crystals Occasional Amorphous Sediment 1+ Urine Bacteria Moderate (10-30) H Ur Culture Indicated? Specimen cultured Vol Urine Centrifuged 10ml (spun) Assessment & Plan Assessment and plan (1) Urinary tract infection: Status: Acute (2) Hypertension: Status: Acute (3) Acute metabolic encephalopathy: Status: Acute (4) Dementia: Status: Acute Assessment & Plan narrative: UTI - not septic. Empiric Rocephin Acute Metabolic Encephalopathy / Dementia - supportve care, ABX HTN - severe. She does not take any medications at home. - Given 10 mg of hydralazine and dropped BP into 110-120 requiring 0.5 L of NS bolus - starting Lisinopril in AM DVT prophylaxis - SCDs. Avoidance of anticoagulants with recurrent falls and uncontrolled HTN Time-Based Coding :: [TOTAL MINUTES] spent with patient and on the chart (including review of chart, obtaining history, exam, reviewing outside data, placing orders, documenting exam and treatment plan, and counseling patient) on [DATE].
[2024-02-01] MEDS: HYDRALAZINE 20 MG/ML VIAL 10 MG IV (22:29)
[2024-02-02] VITALS (10 sets, daily range): BP systolic 124–195; BP diastolic 68–108; PULSE 76–106; RESP 12–20; TEMP 36.7–37.5; O2SAT 94–98
[2024-02-02] MEDS: ACETAMINOPHEN 325 MG TABLET 650 MG PO (00:14)
--- NOTE | 2024-02-02 02:44 | PC.ADMIT ---
Addendum entered by Isabela Awan R.N. 02/02/24 06:37: Mitts have been ineffective as patient was able to remove them, 2nd IV pulled out. Will notify oncoming RN, patient has a 1:1 sitter for day shift. Addendum entered by Isabela Awan R.N. 02/02/24 02:59: Patient attempted to pull out 2nd IV multiple times, rewrapped. Removing telemetry leads. Multiple attempts made to redirect patient were ineffective. Mitts applied to protect medical equipment. Original Note: [address] Admission Note: Admitted to @ 22:35. Alert and pleasantly confused, daughter present to assist with admission. Hypertensive upon admit: BP 213/111, HR in 90's. Hydralazine 10mg given at 22:30, when rechecked BP 133/64, HR 115. ICU nurse reported that tele reading was sinus tach, HR up to 150's, when she checked on her, bleeding noted to arm and pt pulled out her IV. After arm was wrapped, HR sustaining in 110's. BP 133/64, HR 115, 99%RA. 11:15- BP 112/55, HR 110. 11:30- BP 103/55 with MAP of 64, HR 115. Dr. Rowan ordered 500cc of NS bolus and will decrease hydralazine dose. BP improved, still slightly tachy. BP 148/75, HR 106, T 98.0, R 13, O2 96% RA. The patient,Tiffany Yanez,78 y/o, was given written information regarding hospital policies, unit procedures and contact persons. Patient's smoking status: Former smoker. Vital Signs - 8 hr 02/01/24 19:00 02/01/24 19:20 02/01/24 19:20 Temperature Pulse Rate 77 93 H Respiratory Rate 22 19 Blood Pressure 234/98 H Pulse Oximetry 97 97 Oxygen Delivery Method Room Air Oxygen Flow Rate 02/01/24 19:30 02/01/24 19:32 02/01/24 19:32 Temperature Pulse Rate 79 77 Respiratory Rate 27 H 19 Blood Pressure 174/90 H Pulse Oximetry 97 98 Oxygen Delivery Method Oxygen Flow Rate 02/01/24 20:00 02/01/24 20:06 02/01/24 20:06 Temperature Pulse Rate 81 77 Respiratory Rate 19 24 Blood Pressure 204/93 H Pulse Oximetry 97 Oxygen Delivery Method Oxygen Flow Rate 02/01/24 20:07 02/01/24 20:30 02/01/24 20:31 Temperature Pulse Rate 75 73 Respiratory Rate 16 20 Blood Pressure 207/93 H 180/81 H Pulse Oximetry 96 Oxygen Delivery Method Oxygen Flow Rate 02/01/24 20:31 02/01/24 21:00 02/01/24 21:01 Temperature Pulse Rate 74 73 Respiratory Rate 23 24 Blood Pressure 166/78 H Pulse Oximetry 96 97 Oxygen Delivery Method Oxygen Flow Rate 02/01/24 21:01 02/01/24 21:31 02/01/24 21:48 Temperature Pulse Rate 75 Respiratory Rate 23 Blood Pressure Pulse Oximetry 97 Oxygen Delivery Method Room Air Room Air Oxygen Flow Rate 02/01/24 22:08 02/01/24 22:29 02/01/24 22:50 Temperature 97.4 F L Pulse Rate 90 90 Respiratory Rate 12 Blood Pressure 213/111 H 213/111 H 152/78 H Pulse Oximetry 98 Oxygen Delivery Method Oxygen Flow Rate 0 02/01/24 23:00 02/01/24 23:20 02/01/24 23:28 Temperature Pulse Rate 114 H 115 H Respiratory Rate Blood Pressure 145/79 H 133/64 112/55 L Pulse Oximetry 96 Oxygen Delivery Method Oxygen Flow Rate 0 02/01/24 23:36 02/02/24 00:00 Temperature 98.0 F Pulse Rate 106 H Respiratory Rate 13 Blood Pressure 103/55 L 148/75 H Pulse Oximetry 96 Oxygen Delivery Method Oxygen Flow Rate 0
[2024-02-02 07:27] LABS: Add Manual Diff / Slide Review NO; Basophils Absolute Auto 0 /uL (0-100); Basophils Percent Auto 0.8 % (0-2); Eosinophils Absolute Auto 100 /uL (0-450); Eosinophils Percent Auto 1.6 % (2-4); Hematocrit 34.1 % (36-46); Lymphocytes Absolute Auto 1800 /uL (1100-4500); Lymphocytes Percent Auto 29.2 % (25-40); Mean Corpuscular HGB Conc 32.3 % (30-36); Mean Corpuscular Hemoglobin 27.3 PG (26-34); Mean Corpuscular Volume 84.5 fL (80-100); Monocytes Absolute Auto 700 /uL (0-900); Monocytes Percent Auto 10.9 % (3-14); Neutrophils Absolute Auto 3500 /uL (1500-7000); Neutrophils Percent Auto 57.5 % (50-75); Platelet Count 239 X10^3/uL (150-400); Red Blood Cell Count 4.03 X10^6/uL (4.0-5.2); Red Cell Distribution Width 17.3 % (11.6-14.8)
[2024-02-02 07:40] LABS: Blood Urea Nitrogen 28 mg/dL (7-17); Calcium 8.6 mg/dL (8.4-10.2); Carbon Dioxide 22 mmol/L (22-32); Chloride 110 mmol/L (98-107); Estimated Glomerular Filt Rate > 60 mL/min (>60); Glucose 97 mg/dL (80-110); HEMOLYSIS < 15 (0-50); Magnesium 2.2 mg/dL (1.6-2.3); Sodium 137 mmol/L (137-145)
--- NOTE | 2024-02-02 07:40 | PM.PN.1 ---
Subjective Subjective Interval history: Summary: 78-year-old female with history of dementia, hypertension and distant tobacco use who presented with confusion and a fall. She was initially hypertensive and found to have evidence of urinary tract infection. Antibiotics were started in the emergency department. Subjective: She appears to be significantly demented. She has no complaints. Exam Vital Signs (past 8 hours): - 02/02/24 00:00 02/02/24 04:00 Temperature 98.0 F 98.9 F Pulse Rate 106 H 106 H Respiratory Rate 13 12 Blood Pressure 148/75 H 158/82 H Pulse Oximetry 96 97 Oxygen Flow Rate 0 0 Oxygen Delivery Method Room Air Oxygen Flow Rate 0 Narrative Exam Narrative: NAD. Fluent speech. Cognitively impaired. Lungs are clear, normal rate and effort. Heart is regular, no murmur gallop or rub. Abdomen is soft, non distended. Extremities are free of edema. Objective ECG Impression: Sinus rhythm with premature atrial complexes with aberrant conduction Imaging Multiple studies: : Radiologist's impression: Knee x-ray: No acute radiographic abnormality. Mild background degenerative changes. CXR: Very low lung volumes with left hemidiaphragm elevation. Background interstitial changes representing edema or atypical infection. Possible hiatal hernia and air under the left hemidiaphragm probably representing distended gastric or colonic luminal structures, but indeterminate on radiography Labs 02/02/24 07:20 02/02/24 07:20 Labs: Laboratory Results - last 24 hr 02/01/24 02/01/24 02/02/24 16:47 18:30 07:20 WBC 6.2 6.0 RBC 4.41 4.03 Hgb 12.1 11.0 L Hct 37.4 34.1 L MCV 84.9 84.5 MCH 27.4 27.3 MCHC 32.3 32.3 RDW 17.2 H 17.3 H Plt Count 253 239 Neut % (Auto) 65.3 57.5 Lymph % (Auto) 23.5 L 29.2 [place] % (Auto) 8.6 10.9 Eos % (Auto) 1.9 L 1.6 L Baso % (Auto) 0.7 0.8 Neut # (Auto) 4100 3500 Lymph # (Auto) 1500 1800 [place] # (Auto) 500 700 Eos # (Auto) 100 100 Baso # (Auto) 0 0 PT 11.4 INR 1.0 Sodium 137 Potassium 4.2 Chloride 106 Carbon Dioxide 26 BUN 33 H Creatinine 0.68 Estimated GFR > 60 BUN/Creatinine Ratio 48.5 H Glucose 121 H Lactate 1.4 Calcium 8.9 Total Bilirubin 0.5 AST 25 ALT 15 Alkaline Phosphatase 93 Troponin I < 0.012 NT-Pro-B Natriuret Pep 144 Total Protein 6.9 Albumin 3.8 Globulin 3.1 Albumin/Globulin Ratio 1.2 Urine Color Yellow Urine Appearance Cloudy Urine pH 7.5 Ur Specific [place] 1.010 Urine Protein Negative Urine Glucose (UA) Negative Urine Ketones Negative Urine Occult Blood Negative Urine Nitrate Positive H Urine Bilirubin Negative Urine Urobilinogen 0.2 Ur Leukocyte Esterase Trace H Urine RBC None seen Urine WBC 1-5/hpf Ur Squamous Epith Cells 0-1 /hpf Triple Phos Crystals Occasional Amorphous Sediment 1+ Urine Bacteria Moderate (10-30) H Ur Culture Indicated? Specimen cultured Vol Urine Centrifuged 10ml (spun) [facility] Medical History Palpitations H/O: HTN (hypertension) Surgical History No pertinent past surgical history Family History Father Cardiac disease Mother No significant medical problems Social History household members: family Smoking Status: Former smoker Assessment & Plan Assessment & Plan narrative: 1. Septic encephalopathy, present on admission and active. 2. UTI, present on admission and active. 3. Uncontrolled hypertension, present on admission and active. 4. Dementia, present on admission and active. PLAN: -continue antibiotics (Ceftriaxone). -follow blood and urine cultures. -monitor mental status. -PT assessment -monitor BP on Lisinopril Currently Full code. Inpatient status. Proxy: daughter. Time-Based Coding :: 25 min spent with patient and on the chart (including review of chart, obtaining history, exam, reviewing outside data, placing orders, documenting exam and treatment plan, and counseling patient) on 02/01.
[2024-02-02] MEDS: lisinopriL 10 MG TABLET PO (09:11)
--- NOTE | 2024-02-02 13:35 | OT.IP.EVAL ---
Current Diagnoses Unspecified dementia, unspecified severity, without behavioral disturbance, psychotic disturbance, mood disturbance, and anxiety (02/01/24) Metabolic encephalopathy (02/01/24) Essential (primary) hypertension (02/01/24) Urinary tract infection, site not specified (02/01/24) Past Medical History (Last Reviewed 02/02/24 @ 07:43 by Albino Mc MD) H/O: HTN (hypertension) Palpitations Surgical History (Last Reviewed 02/02/24 @ 07:43 by Albino Mc MD) No pertinent past surgical history Occupational Therapy Inpatient Evaluation/Re-Eval M1 PT/OT-IP Prior Functional Status Start: 02/02/24 13:43 Freq: NEEDED Status: Active Protocol: Document 02/02/24 13:43 [facility] (Rec: 02/02/24 14:19 [facility] [id number]) Medical Review Prior Functional Status Communication Per pt's daughter has difficulty with her memory and always looks to her to answer questions. Mobility and Gait Pt furniture cruises in the house and has a hurry cane that she does not use. Activities of Daily Living and IADL's Since pt,s fall, pt's daughter having to assist her for all needs. Prior Functional Level (Other details) Pt mainly stays at home and watches TV in her recliner or sits outside to get some sun per daughter. Pt's daughter works and therefore pt is on her own. Pt's daughter sets out food for her and briefs. Social History Household Members family Living Arrangements House Number of Stairs To Enter/Railing? Pt lives in a duplex. 10- 12steps with bilateral rails to the level pt stays. Home Environment Standard Height Toilet,Tub/ Shower Home Equipment Straight Cane,Raised Toilet Seat w/Armrests,Tub Transfer Bench Additional Social History Comment Pt has a recliner. M2 OT-IP Current Condition Start: 02/02/24 13:43 Freq: Status: Active Protocol: Document 02/02/24 13:43 [facility] (Rec: 02/02/24 14:19 [facility] [id number]) Occupational Therapy Current Condition Current Condition Evaluation Date 02/02/24 Treatment Diagnosis UTI,GLF, acute metabolic encephalopathy Diagnosis Onset Date 02/01/24 M3 OT- IP Subjective and Pain Start: 02/02/24 13:43 Freq: Status: Active Protocol: Document 02/02/24 13:43 [facility] (Rec: 02/02/24 14:19 [facility] [id number]) OT- Subjective Occupational Therapy Visit Type Type Initial Evaluation Visit Start Time 12:50 Visit Stop Time 13:45 Occupational Therapy Visit Comments Patient Comments Pt agreed to get up to try to use the bathroom. Patient/Caregiver Goals To get better. OT Pain Assessment Pain When Pain Assessed At Rest Pain Present Pain Present Denied Pain M4 OT- IP ADL's Start: 02/02/24 13:43 Freq: Status: Active Protocol: Document 02/02/24 13:43 [facility] (Rec: 02/02/24 14:19 [facility] [id number]) OT ZCF-[id number] Comments OT Self-Feeding Comments Not at meal time. OT ADL-Grooming Comments OT Grooming Comments Not performed. OT ADL-Oral Care Comments Oral Care Comments Not performed. OT ADL-Dressing General Eval Lower Body Dressing Ability Maximum Assistance Areas Needing Assistance Underpants/Brief Comments OT Dressing Comments Assist for brief management needs. OT ADL-Toileting General Evaluation Toileting Ability Maximum Assistance Areas Needing Assistance Manage Clothing,Perform Perineal Hygiene Comments OT Toileting Comments One person to assist to stand with the FWW MODA X1 and another to assist for all hygiene needs. OT ADL-Bathing Comments OT Bathing Comments Sponge bath or use of rolling shower chair more appropriate at this time. M5 OT- IP IADL's Start: 02/02/24 13:43 Freq: Status: Active Protocol: Document 02/02/24 13:43 [facility] (Rec: 02/02/24 14:19 [facility] [id number]) OT-Instrumental Activities of Daily Living Home Safety Awareness Awareness of Need for Assistance at Home Decreased Awareness Ability to Problem Solve Emergency Unable to Problem Solve Situations Home Safety Comments At this time pt is just mainly orientated to her name and aware in the hospital Medication Management Medication Management Caregiver Administers Money Management Money Management Caregiver Provides Assistance Meal Preparation Meal Preparation Caregiver Provides Assist Resident Programs Assistant Resident Programs Assistant Caregiver Provides Assist M6 OT- IP Functional Cognition Start: 02/02/24 13:43 Freq: Status: Active Protocol: Document 02/02/24 13:43 [facility] (Rec: 02/02/24 14:19 [facility] [id number]) Cognitive Factors Limiting Selfcare Function Cognitive Ability Level of Alertness Confusional State Patient Orientation Name,Place Attention Span Ability Unable to Focus,Unable to Sustain Attention Ability to Follow Commands Able to Follow One Step Commands with Increased Time, Able to Follow One Step Commands with Repetition Memory Description Short Term Impaired,Working Impaired Cognitive Comments Cognitive Assessment Comments Pt mainly just orientated to her name and aware in the hospital. Pt looks to her daughter to answer questions. Pt needing step by step instructions with vc and tactile cues for toileting and transfer with FWW at this time. Pt needing MAX vc for safety awareness for FWW use and hand placement. At this this time pt to only state her daughter name and not able to recall the other 3 kids. After given cues of what letter each other of her kid's name start with , able to recall her kids names. OT- Vision and Hearing OT- Vision Assessment Visual Attentiveness WFL Occular Pursuits WFL Visual Finch WFL Vision Assessment Comments Pt able to read the clock. M7 OT- IP Mobility and Balance Start: 02/02/24 13:43 Freq: Status: Active Protocol: Document 02/02/24 13:43 [facility] (Rec: 02/02/24 14:19 [facility] [id number]) OT- Bed Mobility Assessment Supine to Sit Supine to Sit Assist Contact Guard Assistance Scooting Scooting to Edge of Bed Contact Guard Assistance OT-Transfer Assessment Sit to and From Stand Sit to and from Stand Moderate Assistance,2 Person Assistance Transfers Transfer Ability Moderate Assistance,2 Person Assistance Technique Transfer Destination Bed,Bedside Commode Transfer Technique Stand Step Pivot Devices Transfer Assistive Devices Gait Belt,Front Wheeled Walker Comments Mobility Comments CGA and heavy use of bed rail to get to the edge of the bed. MOD Ax2 to stand as pt's feet tend to slide forwards to the FWW. MODAX2 with FWW to transfer to the C, assist for balance , hand placement for safety. OT- Balance Assessment Sitting Balance and Reactions Static Sitting Balance Ability Fair Dynamic Sitting Balance Ability Fair Standing Balance and Reactions Static Standing Balance Ability Poor Dynamic Standing Balance Ability Poor M8 OT- IP Objective Assessments Start: 02/02/24 13:43 Freq: Status: Active Protocol: Document 02/02/24 13:43 [facility] (Rec: 02/02/24 14:19 [facility] [id number]) OT Gross Range of Motion Upper Extremity Range of Motion Assessment Bilaterally Impaired ROM Impairments Shoulder flexion 0-95, elbow to distal WFL bilaterally OT Strength Upper Extremity Strength Assessment Bilaterally Impaired Shoulder 3- Elbow 4- Forearm 4- Wrist 3+ Hand 3+ M9 OT- IP Assessment and Plan Start: 02/02/24 13:43 Freq: Status: Active Protocol: Document 02/02/24 13:43 [facility] (Rec: 02/02/24 14:19 [facility] [id number]) OT Summary Assessment and Plan Potential Rehabilitation Potential Fair Analytic Complexity at Evaluation Moderate Summary OT Impairments Strength,Balance,Functional Cognition,Functional Mobility, Self-Feeding,Grooming,Dressing ,Toileting,Toilet Transfers, Activity Tolerance Progress Towards Goals Slow Progress due to Medical Issues,Slow Progress due to Activity Tolerance,Slow Progress due to Cognition Assessment Summary Pt MOD complexity and main barriers are steps, weakness, decreased balance, increased confusion and ability to follow commands due to her UTI. Pt will benefit from skilled rehab to improve her mobility needs and continue to educate regarding safety needs. Pt's UTI seems to be affecting her mentation somewhat more than her baseline of some dementia. Pt 's daughter states prior pt was able to get by being on her own at home while she was at work, however getting to be more difficult recently. Pt will benefit from skilled rehab. Goals Self-Feeding Goal Standby Assistance Grooming Goal Standby Assistance Dressing Goal Minimal Assistance Toileting Goal Minimal Assistance Toilet Transfer Goal Standby Assistance Shower Transfer Goal Contact Guard Assistance Days to Meet Goals 25 Frequency of Treatment Other frequency 5x/week Treatment Plan OT Treatment Plan ADL Training,Functional Cognition Training,Functional Mobility,Patient/Family Education,Discharge Planning Discharge Recommendations OT Discharge Recommendations SNF Rehab Transportation Needs at Discharge Wheelchair/Cabulance
--- NOTE | 2024-02-02 14:04 | CM.DANOTE ---
Addendum entered by Damaris Mcdermott MSW 02/02/24 16:24: PROSPECTING OBSERVER met with pt and dtr in room. Pt pleasantly confused. PROSPECTING OBSERVER gave dtr copies of DPOA/financial POA paperwork and Sig HH brochure. Dtr preference is SNF rehab to get pt mobilizing/stronger and then seek LTC/Memory care placement with Medicaid. PROSPECTING OBSERVER will make referral in morning. SL Original Note: DCP Assessment Note Pt is a 78yo F here with a UTI/weakness/acute confusion increased from baseline dementia. PCP none, pt has not been to a doctor in a long time. Payer medicare pt A only and self pay PROSPECTING OBSERVER reviewed EMR. Per chart, pt here after recent GLF. Per chart, ED PROSPECTING OBSERVER Dorota met with pt and dtr Sofi (EVS here at ) and grand dtr Claire. ED PROSPECTING OBSERVER helped dtr send out Medicaid catarino for LTC. Pt lives with dtr Sofi in [place]. Per UR RN, pt INPT from admission. Per OT, pt weaker than baseline and could likely benefit from SNF before discharging to [facility]UST[facility]. PT eval pending. PROSPECTING OBSERVER faxed expedited medicaid application form request to [facility]. PROSPECTING OBSERVER met with dtr, pt, and nursing admin Aidee in room. Per pt/Dtr, no DPOA paperwork is in place at this time. Pt verbalized wanting dtr Sofi to be DPOA. Per Dtr, she has been needing increasing assistance over the past few months. She normally is able to ambulate with a walker at baseline. Dtr cannot be with pt 28/12 due to having to work and is open to any resource/help. Pt reports being in agreement to arranging SOC with PCP. Dtr open to SNF if indicated for pt but it appears that senior living plan hope is to place pt in Memory care once Medicaid LTC application processed. Open to either respite memory care or hiring in home CGs for short term if needed but report that would be a financial strain.. Open to HH if SNF not an option. Dtr had to leave prior to discussion on preferences for SNF prior to being able to make referral. P: DCP pending PT eval/dtr preference for SNF referral/arrangements for home. LTC plan appears to be placement after pt returns to baseline mobility/[place] application finalized. Financial POA/healthcare POA likely needed. CM team will continue to follow closely. JOSE Mata Discharge Planning/Care Management CM Discharge Assessment Start: 02/02/24 14:01 Freq: Status: Active Protocol: Document 02/02/24 14:01 (Rec: 02/02/24 14:03 [id number]) Discharge Planning Assessment Assigned Family Service Caseworker JOSE Lewis DPOA/Assigned Designee Name Sofi, fany Contact Information [phone] Advance Directives? No History Provided By Patient,Family Member,Medical Record Prior Living Arrangements House Comment In home with daughter Household Members family Type of transporation used prior to Relies on Others admit Independent with ADL's No Is patient alert and oriented? No Needs Assistance With Meal Prep,Managing Medications ,Home Chores / Shopping DME Already Rented / Owned Bath Bench,Elevated Toilet Seat,Other Comment SNF vs Home with HH vs CUSTODIAL Transportation Arrangement facility vs family Referrals Initiated Medicaid Application Additional Comment pending family preference Review Status In Process Please Provide Date Initial DC 02/02/24 Assessment Was Performed Next Review Type Continued Stay Review
[2024-02-02] MEDS: HYDRALAZINE 20 MG/ML VIAL 5 MG IV (16:54)
[2024-02-02] MEDS: cefTRIAXone 1,000 MG in SODIUM CHLORIDE 0.9% 100 ML 200 MG IV (20:29)
[2024-02-02] MEDS: SODIUM CHLORIDE 0.9% 250 ML 21 ML IV (20:30)
[2024-02-02] MEDS: SODIUM CHLORIDE 0.9% FLUSH 10 ML IV (21:52)
[2024-02-03] VITALS (7 sets, daily range): BP systolic 105–147; BP diastolic 59–83; PULSE 65–77; RESP 16–22; TEMP 36.5–37.2; O2SAT 94–99
[2024-02-03] MEDS: ACETAMINOPHEN 325 MG TABLET 650 MG PO (05:05)
[2024-02-03] MEDS: lisinopriL 10 MG TABLET PO (08:37)
[2024-02-03] MEDS: SODIUM CHLORIDE 0.9% FLUSH 10 ML IV ×2 (08:38→20:54)
--- NOTE | 2024-02-03 10:58 | DI.RAD.S_ITS ---
PROCEDURE: XR PELVIS 1-2V INDICATIONS: R hip pain, guarding with standing, r/o fracture TECHNIQUE: 1 view(s) of the pelvis acquired. COMPARISON: None. FINDINGS: Bones: No fractures or dislocations. No suspicious bony lesions. Mass right hip joint space narrowing, subchondral sclerosis and cysts with flattening of the femoral head. Left hip unremarkable Soft tissues: Visualized bowel gas pattern is normal. No suspicious soft tissue calcifications. IMPRESSION: Advanced right hip osteoarthritis Approved by: Byron Hill M.D. on 02/03/2024 at 15:33
--- NOTE | 2024-02-03 11:23 | PT.IIE ---
Current Diagnoses Unspecified dementia, unspecified severity, without behavioral disturbance, psychotic disturbance, mood disturbance, and anxiety (02/01/24) Metabolic encephalopathy (02/01/24) Essential (primary) hypertension (02/01/24) Urinary tract infection, site not specified (02/01/24) Surgical History (Last Reviewed 02/02/24 @ 07:43 by Albino Mc MD) No pertinent past surgical history Medical History (Last Reviewed 02/02/24 @ 07:43 by Albino Mc MD) H/O: HTN (hypertension) Palpitations Physical Therapy Inpatient Evaluation/Re-Eval M1 PT/OT-IP Prior Functional Status Start: 02/02/24 13:43 Freq: NEEDED Status: Active Protocol: Document 02/03/24 10:40 MB (Rec: 02/03/24 11:23 MB [id number]) Medical Review Prior Functional Status Medical History Reviewed Yes Communication Per pt's daughter has difficulty with her memory and always looks to her to answer questions. Mobility and Gait Pt furniture cruises in the house and has a hurry cane that she does not use. Activities of Daily Living and IADL's Pt after fall pt's daughter having to assist her for all needs. Prior Functional Level (Other details) Pt mainly stays at home and watches TV in her recliner or sits outside to get some sun per daughter. Pt's daughter works and therefore pt is on her own, Pt's daughter stes out food for her and briefs. Social History Household Members family Living Arrangements House Number of Floors (Floors) One Floor Number of Stairs To Enter/Railing? 10-12 steps to enter with 2 rails Home Environment High Toilet,Tub/Shower Home Equipment Straight Cane,Raised Toilet Seat w/Armrests,Tub Transfer Bench Employment Status Retired M1 PT/OT-IP Prior Functional Status Start: 02/03/24 07:44 Freq: NEEDED Status: Active Protocol: Document 02/03/24 10:40 MB (Rec: 02/03/24 11:23 MB [id number]) Medical Review Prior Functional Status Medical History Reviewed Yes Communication Per pt's daughter has difficulty with her memory and always looks to her to answer questions. Mobility and Gait Pt furniture cruises in the house and has a hurry cane that she does not use. Activities of Daily Living and IADL's Pt after fall pt's daughter having to assist her for all needs. Prior Functional Level (Other details) Pt mainly stays at home and watches TV in her recliner or sits outside to get some sun per daughter. Pt's daughter works and therefore pt is on her own, Pt's daughter stes out food for her and briefs. Social History Household Members family Living Arrangements House Number of Floors (Floors) One Floor Number of Stairs To Enter/Railing? 10-12 steps to enter with 2 rails Home Environment High Toilet,Tub/Shower Home Equipment Straight Cane,Raised Toilet Seat w/Armrests,Tub Transfer Bench Employment Status Retired M2 PT-IP Current Condition Start: 02/03/24 07:44 Freq: NEEDED Status: Active Protocol: Document 02/03/24 10:40 MB (Rec: 02/03/24 11:23 MB [id number]) Physical Therapy Current Condition Current Condition Evaluation Date 02/03/24 Treatment Diagnosis Fall, swollen feet M3 PT-IP Subjective Start: 02/03/24 07:44 Freq: NEEDED Status: Active Protocol: Document 02/03/24 10:40 MB (Rec: 02/03/24 11:23 MB [id number]) Subjective Physical Therapy Visit Type Type Initial Evaluation Visit Start Time 10:40 Visit Stop Time 11:03 Number of TONE REGULATOR Visits 0 Physical Therapy Visit Comments Patient Comments Pt is pleasantly confused and does not make spontaneous conversation, does communicate need to toilet at end of PT assessment. Therapy Pain Assessment Pain When Pain Assessed During Mobility Pain Present Pain Present Pain Reported Location R leg and groin area Intensity 5 Scale Used FloresCurtCa (Faces) M4 PT-IP Mobility and Gait Start: 02/03/24 07:44 Freq: NEEDED Status: Active Protocol: Document 02/03/24 10:40 MB (Rec: 02/03/24 11:23 MB [id number]) PT-Bed Mobility Assessment Rolling Type of Rolling Roll to Left Level of Assist Contact Guard Assistance Supine to Sit Supine to Sit Minimal Assistance,1 Person Assistance,Bedrails Sit to Supine Sit to Supine Minimal Assistance,1 Person Assistance,Bedrails Scooting Scooting to Edge of Bed Minimal Assistance Scooting Up and Down in Bed Minimal Assistance PT-Transfer Assessment Sit to and From Stand Sit to and from Stand Moderate Assistance,1 Person Assistance,Use of Upper Extremities Equipment Transfer Assistive Device Gait Belt,Straight Cane,Front Wheeled Walker Orthotic/Prosthetic Devices or Brace: No Transfers Transfer Destination Bedside Commode Transfer Technique Stand Step Pivot Transfer Ability Level of Assist Moderate Assistance,1 Person Assistance,Use of Upper Extremities Comments Mobility Comments PT attempts STS with pt twice and pt con't to guard her right LE with toe touch WB and she cannot take a step well. PT attempts to ed pt in RW and cane use and this is challenging with dementia and does not help for mobility or to decrease WB. After STS and attempted stepping, pt asks to get to BSC and mod A to step pivot with heavy WB there. PT assesses both legs and pt does not have bruising or edema or skin breakdown today. R knee has a lot of crepitus with passive movement in the bed. Guarded right hip movement and points to right groin when asked if she has pain. Gait Assessment Comments Gait Comments No true gait today PT-Balance Assessment Sitting Balance and Reactions Static Sitting Balance Ability Good Dynamic Sitting Balance Ability Poor Standing Balance and Reactions Static Standing Balance Ability Poor Dynamic Standing Balance Ability Poor Device Used RW Comments Other Balance Tests/Deviations/Treatment Inability to laterally scoot : sitting EOB and pt has trouble standing and cannot take good functional step, keeps right toes down M5 PT-IP Objective Assessments Start: 02/03/24 07:44 Freq: NEEDED Status: Active Protocol: Document 02/03/24 10:40 MB (Rec: 02/03/24 11:23 MB [id number]) Orientation Orientation/Cognition Level of Alertness Confusional State Orientation Name,Birthday Safety Awareness Decreased Safety Awareness Memory Description Short Term Impaired,Drying Oven Attendant Impaired Gross Range of Motion Upper Extremity ROM Impairments Defer to OT Lower Extremity ROM Assessment Right Impaired Impairments Guards right hip Strength Comments Strength Comments B ankles and knees appear functional and she may have right pubic or hip issue with guarding M7 PT-IP Assessment and Plan Start: 02/03/24 07:44 Freq: NEEDED Status: Active Protocol: Document 02/03/24 10:40 MB (Rec: 02/03/24 11:23 MB [id number]) PT Summary Assessment and Plan Potential Rehabilitation Potential Fair Status of Condition at Evaluation Evolving Summary Impairments Pain,ROM,Strength,Balance, Coordination,Cognition,Bed Mobility,Transfers,Gait, Activity Tolerance Progress Towards Goals Slow Progress due to Pain Assessment Summary Pt is a pleasantly confused 78 y/o female. During attempted mobility with simple one-step functional commands, pt does make a good effort and she con 't guards her right LE with toe touch on the floor. She limits WB consistently through the right leg. Up to BSC per pt request and INDUSTRIAL MANAGEMENT TEACHER assists after. PT speaks with MD about PT concerns about right hip. Goals Bed Mobility Goal Standby Assistance Transfer Goal Standby Assistance,Four Wheeled Walker Gait Goal Standby Assistance,Four Wheel Walker Gait Distance 50 Other Goals Gait only if pt does not appear to have pain in right hip/leg with WB, progress slowly and with LRAD Days to Meet Goals 5 Frequency of Treatment Frequency Of Treatment Once a Day Treatment Plan Physical Therapy Treatment Plan Bed Mobility Training,Transfer Training,Gait Training, Therapeutic Exercise,Balance Retraining,Discharge Planning, Hot or Cold Pack,Neuromuscular Re-ed,Coordination Retraining ,Manual Therapy Precautions Other Precautions Dementia Weight Bearing Status Allowed Weight Bearing Amount (enter % Currently no restrictions or #) (%) Recommendations To Nursing Amount of Assist Needed 2 Person Assist Discharge Recommendations PT Discharge Recommendations SNF Rehab Transportation Needs at Discharge Wheelchair/Cabulance
--- NOTE | 2024-02-03 13:28 | PT-IP ANOTE ---
PT notes pelvic x-ray was completed and PT can view image but no report yet. Con't PT efforts and will look out for report findings and any other consults or orders.
[2024-02-03] MEDS: CALCIUM CARBONATE 500 MG TAB 1000 MG PO (14:21)
--- NOTE | 2024-02-03 14:57 | OT.IPNOTE ---
Spoke to the hospitalist regarding result of right hip x-ray and to see if any new needs or restrictions. Per hospitalist the report not in yet and okay to hold OT until report is available.
--- NOTE | 2024-02-03 15:42 | CM.DPNOTE ---
DCP Note PACKAGE DELIVERY ROOM SERVICE RUNNER reviewed EMR. Per PT, pt favored right hip during assessment, hospitalist ordered X-ray of hip. Results pending. Per RN, pt delightfully confused. Per RN, pt remains 1:1 for IV abx but has been pleasant with staff. 1:1 could likely end once IV is out. Pt not attempting to get out of bed. Per hospitalist in morning rounds, plan is to switch or PO abx today. PACKAGE DELIVERY ROOM SERVICE RUNNER spoke with Blanche at , reviewed current circumstances. Blanche reports that pt needs to be 24HRS without 1:1 sitter and if pt continues to have skillable need/behaviors are appropriate [facility] would likely be able to accept her. Happy to review pt's chart/referral as time progresses. PACKAGE DELIVERY ROOM SERVICE RUNNER met with pt and dtr Sofi in room. Pt pleasant and chatty during PACKAGE DELIVERY ROOM SERVICE RUNNER assessment. Pt repeated multiple times in multiple ways that she wanted Sofi to be her healthcare POA/financial. Dtr assisted in completing form, pt signed, and this PACKAGE DELIVERY ROOM SERVICE RUNNER and IMPRESS ASSOCIATE acted as witnesses. Copy scanned into chart and original given back to dtr. Dtr reported being unsure why Medicare Part B was cut off (this PACKAGE DELIVERY ROOM SERVICE RUNNER suspects it may have been something with pt needing to prove her residency as legal alien?). PACKAGE DELIVERY ROOM SERVICE RUNNER gave dtr medicare information packet and number to call for insurance counseling here at . Dtr reports pt does not have valid ID ( september of this year) to notarize financial POA paperwork. Preference remains dc to [facility] if accepted with plans to transition to LTC Memory care with Medicaid Marsha. Pt in agreement with plan to DC to [facility]. P: Hopeful to dc to [facility] when medically stable pending acceptance, need 24Hrs without 1:1 sitter. PASRR needed. CM team will continue to follow closely. JOSE Mata
[2024-02-03] MEDS: HYDROCODONE/ACET 5/325 TABLET 1 TAB PO (17:21)
--- NOTE | 2024-02-03 18:12 | P.PN_ITS ---
Subjective Subjective Interval history: Summary: 78-year-old female with history of dementia, hypertension and distant tobacco use who presented with confusion and a fall. She was initially hypertensive and found to have evidence of urinary tract infection. Antibiotics were started in the emergency department. Subjective: She appears to be significantly demented. She has no complaints but has chronic right hip pain. In discussion with therapy there was some concern about her possibly having a R sided hip fracture based on her pain when attempting to stand. Exam Vital Signs (past 8 hours): - 02/03/24 12:00 02/03/24 15:55 Temperature 98.8 F 98.9 F Pulse Rate 77 71 Respiratory Rate 21 22 Blood Pressure 129/64 Pulse Oximetry 98 99 Oxygen Flow Rate 0 0 Oxygen Delivery Method Room Air Oxygen Flow Rate 0 Narrative Exam Narrative: NAD. Fluent speech. Cognitively impaired. Lungs are clear, normal rate and effort. Heart is regular, no murmur gallop or rub. Abdomen is soft, non distended. Extremities are free of edema. No R hip tenderness, some pain with compression at her R hip and pain with active motion but not passive. Objective Labs 02/02/24 07:20 02/02/24 07:20 [facility] Medical History Palpitations H/O: HTN (hypertension) Surgical History No pertinent past surgical history Family History Father Cardiac disease Mother No significant medical problems Social History household members: family Smoking Status: Former smoker Assessment & Plan Assessment & Plan narrative: 1. Sepsis ruled out. Acute metabolic encephalopathy, present on admission and active. 2. Acute cystitis, present on admission and active. 3. Uncontrolled hypertension, present on admission and active. 4. Dementia, present on admission and active. 5. R hip severe osteoarthritis PLAN: -continue antibiotics (Ceftriaxone) for today. Okay to discontinue IV line after completion of antibiotic today. -blood cultures negative, urine cultures with sens. proteus. -Severe R hip arthritis on imaging today, no fractures on pelvic xray. Continue pain control with naproxen BID scheduled (start on 20 mg protonix as well), PT and OT. Patient is weight bearing as tolerated. May need outpatient evaluation with orthopedic surgery depending on conservative measures. -SOFA score of 1 based on presentation, sepsis ruled out. Currently Full code. Inpatient status. Proxy: daughter. Dispo: inpatient. Patient to have PT/OT evaluations (was evaluating for possible R hip fracture after initial PT eval today). Possible discharge to SNF. Discussed with previous hospitalist, and additional history obtained via discussion with physical therapist today to contribute to the above history, assessment and plan. Time-Based Coding :: [TOTAL MINUTES] spent with patient and on the chart (including review of chart, obtaining history, exam, reviewing outside data, placing orders, documenting exam and treatment plan, and counseling patient) on [DATE].
[2024-02-03] MEDS: cefTRIAXone 1,000 MG in SODIUM CHLORIDE 0.9% 100 ML 200 MG IV (20:03)
[2024-02-04] MEDS: HYDROCODONE/ACET 5/325 TABLET 1 TAB PO (00:39)
[2024-02-04 03:00] VITALS: BP 134/62; PULSE 69; RESP 18; TEMP 36.6; O2SAT 95
[2024-02-04] MEDS: PANTOPRAZOLE DR 20 MG TABLET PO (06:23)
[2024-02-04 07:00] VITALS: BP 145/74; PULSE 69; RESP 16; TEMP 36.7; O2SAT 98
--- NOTE | 2024-02-04 08:45 | DIET.CONS ---
Dietary Consultation Note Admission Date: 02/01/2024 20:01 Assessment: 78 y F admitted for GLF at home and UTI. Nutrition screened for low MNA. PMH of dementia. EMR reviewed. Unit host/kitchen providing meals per preferences, modifying veg food texture as requested. Ht: 152.4 cm Wt: 63.503 kg BMI: 27.3 UBW: No recent wt hx Last BM: 08/04/23 (02/02/24 13:39) MNA: 10 Jimmy Score: 16 Diet: 02/02/24 Breakfast Heart Healthy Diet Diet Modifications: Nutrition Percent Meal Consumed 50% 02/03/24 17:56 Percent Meal Consumed 50% 02/03/24 13:00 Percent Meal Consumed 75% 02/03/24 09:00 Percent Meal Consumed 25% 02/02/24 17:50 Percent Meal Consumed 25% 02/02/24 09:33 Labs: RBC 4.03 X10^6/uL (4.0-5.2) 02/02/24 07:20 Hgb 11.0 g/dL (12.0-16.0) L 02/02/24 07:20 Hct 34.1 % (36-46) L 02/02/24 07:20 Creatinine 0.70 mg/dL (0.52-1.04) 02/02/24 07:20 Lactate 1.4 mmol/L (0.7-2.1) 02/01/24 16:47 NT-Pro-B Natriuret Pep 144 pg/mL (<450) 02/01/24 16:47 Nutrition Diagnosis: Inadequate energy intake r/t decreased ability to consume sufficient energy aeb recorded po intakes average <50% Interventions: 1. ONS BID EER: [id number] (23-25 kcals/kg per BMI) 60-65 g protein (1 g/kg per age) Monitoring/Evaluations: po intakes Electronically Signed by: Moira Aragon 02/04/24 08:45 [address] [address]
[2024-02-04] MEDS: lisinopriL 10 MG TABLET PO (10:04)
[2024-02-04] MEDS: SODIUM CHLORIDE 0.9% FLUSH 10 ML IV (10:04)
[2024-02-04] MEDS: NAPROXEN 250 MG TABLET PO ×2 (10:04→18:11)
--- NOTE | 2024-02-04 10:27 | PM.DS.1 ---
History of Present Illness History of Present Illness Date Patient Seen: 02/04/24 Time Patient Seen: 10:27 Chief complaint: fall, swollen feet, dementia Narrative: Per admitting provider, 78 y/o with PMH of dementia, HTN, former smoker, who presented to ED acutely confused, after she sustained GLF at home. Unable to provide history that was obtained from the daughter who found her on the floor. She did not sustain significant injuries in the presumed fall. Daughter reported on acute confusion, being off her baseline which is mild cognitive deficits, that are getting worse lately. ED workup shows UTI. Consistently hypertensive in the ED with SBP > 200. Confused, presumably encephalopathic without acute focal motor deficits. Discharge Providers Provider Date of admission: 02/01/24 20:01 Discharge Date: 02/04/24 Primary care physician: Tomer Calloway DO Consults: 02/01/24 17:06 Consult to [facility] [place] - Jewelry Designer Stat Comment: Jewelry Designer Consult needed for:: Other reason (Comment) 02/01/24 22:07 Consult to Pastoral Services Routine Comment: Pt requests 02/02/24 10:16 Consult to Occupational Therapy Evaluate & Treat Comment: Physician Instructions: Evaluate and treat Consult to Physical Therapy Evaluate & Treat Comment: Physician Instructions: Evaluate and Treat Discharge provider: Tomer Calloway DO Exam Vital Signs (past 8 hours): - 02/04/24 03:00 02/04/24 07:00 Temperature 97.9 F 98.0 F Pulse Rate 69 69 Respiratory Rate 18 16 Blood Pressure 134/62 145/74 H Pulse Oximetry 95 98 Oxygen Flow Rate 0 0 Oxygen Delivery Method Room Air Oxygen Flow Rate 0 Objective Labs 02/02/24 07:20 02/02/24 07:20 [facility] Medical History Palpitations H/O: HTN (hypertension) Surgical History No pertinent past surgical history Family History Father Cardiac disease Mother No significant medical problems Social History household members: family Smoking Status: Former smoker Discharge Plan Discharge orders & Medications Prescriptions: No Action naproxen 220 mg tablet 220 mg PO BID PRN (Reason: Pain (Scale Score 1-3)) Follow up/Referrals: Tomer Calloway DO [Primary Care Provider] - Discharge Data Primary Care Provider: Tomer Calloway
[2024-02-04 11:00] VITALS: BP 105/54; PULSE 68; RESP 18; TEMP 36.2; O2SAT 97
--- NOTE | 2024-02-04 11:45 | PT.IPTN ---
Current Diagnoses Unspecified dementia, unspecified severity, without behavioral disturbance, psychotic disturbance, mood disturbance, and anxiety (02/01/24) Metabolic encephalopathy (02/01/24) Essential (primary) hypertension (02/01/24) Urinary tract infection, site not specified (02/01/24) Physical Therapy Treatment Note M2 PT-IP Current Condition Start: 02/03/24 07:44 Freq: NEEDED Status: Active Protocol: Document 02/03/24 10:40 MB (Rec: 02/03/24 11:23 MB [id number]) Physical Therapy Current Condition Current Condition Evaluation Date 02/03/24 Treatment Diagnosis Fall, swollen feet M3 PT-IP Subjective Start: 02/03/24 07:44 Freq: NEEDED Status: Active Protocol: Document 02/04/24 11:45 AB (Rec: 02/04/24 13:48 AB [id number]) Subjective Physical Therapy Visit Type Type Treatment Note Visit Start Time 11:45 Visit Stop Time 11:55 Number of MISSILE PAD MECHANIC Visits 0 Therapy Pain Assessment Pain When Pain Assessed During Mobility Location Right Hip Scale Used pain scale not stated Pain Behaviors Guarding Pain Management Techniques Distraction,Modification of Treatment,Re-positioning, Timing of Activity with Medications M4 PT-IP Mobility and Gait Start: 02/03/24 07:44 Freq: NEEDED Status: Active Protocol: Document 02/04/24 11:45 AB (Rec: 02/04/24 13:48 AB [id number]) PT-Bed Mobility Assessment Supine to Sit Supine to Sit Maximum Assistance,1 Person Assistance,Head of Bed Elevated,Bedrails PT-Transfer Assessment Sit to and From Stand Sit to and from Stand Moderate Assistance,Maximum Assistance,1 Person Assistance ,Use of Upper Extremities Equipment Transfer Assistive Device Gait Belt,Front Wheeled Walker Transfers Transfer Destination Chair Transfer Technique ambulated Transfer Ability Level of Assist Moderate Assistance,1 Person Assistance,Use of Upper Extremities Comments Mobility Comments pt supine in bed. agreed to get up. pt completed supine to sit max A and max cues. c/ o RLE pain. HOB elevated to assist. pt was able to sit on EOB CGA. completed sit to stand mod A to max A and max cues. (+) R hip/knee crepitus during mobility. pt presents with stooped posture. cued to correct. pt ambulated in room using FWW mod A and max cues. presents with antalgic gait. pt sat on the chair. positioned pt on the chair for lunch. call light and table next to pt. left pt with NAC in room. Gait Assessment Gait Gait Assistance Required: Moderate Assistance Distance (Feet) 10 Able to Maintain Weight Bearing Status Yes During Gait Assistive Devices Assistive Device Gait Belt,Front Wheeled Walker Orthotic/Prosthetic Devices or Brace: No Gait Deviations General Gait Pattern Antalgic,Decreased Stride Length,Decreased Feet Clearance,Flexed Trunk,Narrow Based Gait,Step-to Gait Factors Limiting Gait Function Factors Limiting Gait Function Decreased Activity Tolerance, Decreased Strength,Difficulty Following Directions,Limited Range of Motion,Pain,Poor Balance,Poor Safety Awareness M5 PT-IP Objective Assessments Start: 02/03/24 07:44 Freq: NEEDED Status: Active Protocol: Document 02/03/24 10:40 MB (Rec: 02/03/24 11:23 MB [id number]) Orientation Orientation/Cognition Level of Alertness Confusional State Orientation Name,Birthday Safety Awareness Decreased Safety Awareness Memory Description Short Term Impaired,[employer] Impaired Gross Range of Motion Upper Extremity ROM Impairments Defer to OT Lower Extremity ROM Assessment Right Impaired Impairments Guards right hip Strength Comments Strength Comments B ankles and knees appear functional and she may have right pubic or hip issue with guarding M6 PT-IP Treatment Start: 02/03/24 07:44 Freq: NEEDED Status: Active Protocol: Document 02/04/24 11:45 AB (Rec: 02/04/24 13:48 AB [id number]) Physical Therapy Treatment Education Education Provided Safety M7 PT-IP Assessment and Plan Start: 02/03/24 07:44 Freq: NEEDED Status: Active Protocol: Document 02/04/24 11:45 AB (Rec: 02/04/24 13:48 AB [id number]) PT Summary Assessment and Plan Potential Rehabilitation Potential Fair Summary Impairments Pain,ROM,Strength,Balance, Coordination,Sensation,Tone, Cognition,Bed Mobility, Transfers,Gait,Activity Tolerance Progress Towards Goals Slow Progress due to Pain,Slow Progress due to Activity Tolerance,Slow Progress - Other Assessment Summary pt requiring mod to max A for mobility and max cues with all tasks. pt with dx dementia and has decrease safety awareness. pt will require SNF rehab to improve overall strength and mobility independence. Goals Bed Mobility Goal Standby Assistance Transfer Goal Standby Assistance,Four Wheeled Walker Gait Goal Standby Assistance,Four Wheel Walker Gait Distance 50 Other Goals Gait only if pt does not appear to have pain in right hip/leg with WB, progress slowly and with LRAD Days to Meet Goals 10 Frequency of Treatment Frequency Of Treatment Once a Day Treatment Plan Physical Therapy Treatment Plan Bed Mobility Training,Transfer Training,Gait Training, Therapeutic Exercise,Balance Retraining,Discharge Planning, Hot or Cold Pack,Neuromuscular Re-ed,Coordination Retraining ,Manual Therapy Recommendations To Nursing Amount of Assist Needed 1 Person Assist Discharge Recommendations PT Discharge Recommendations SNF Rehab Transportation Needs at Discharge Wheelchair/Cabulance
--- NOTE | 2024-02-04 12:26 | PC.NURSE ---
Addendum entered by Lulu Vela R.N. 02/04/24 15:03: Patient has not had a 1:1 sitter since 1330. She has been sitting in her chair and was taken to the bathroom a bit earlier. She voided 250cc of yellow urine. Warm blanket given to patient and she is sitting comfortably in her chair with chair alarm in place. Original Note: Patient is alert but oriented x1, she is aware of faces but confused otherwise. She is unaware of the date or day of the week. Patient has a one to one sitter today, she will try to get up out of bed if left unattended for very long. Per other RNS, patient starts to around 5-530PM. Her iv has just been taken out by patient tech. She is sitting up in her chair and getting ready for lunch.
--- NOTE | 2024-02-04 12:35 | CM.DPC ---
DCP Continued: Reviewed EMR and team rounds for pt?s medical status. DCP spoke with Intake at [facility] and it was reported that pt could be accepted as soon as today IF 1:1 sitter has been discontinued for 24 hours. Pending transport, pt could also be accepted this weekend. Per RN, pt still has a 1:1 sitter but does not need IV access, IV was discontinued at 1145. DCP notified [facility] admissions that IV has been discharged at 1145, it was reported that CM Team will have to follow up with their intake team tomorrow, 02/04, to see transport status. Pt EMR will also be reviewed for no behavioral issues (flight risk) overnight before acceptance. Hospitalist kindly completed discharge paperwork, currently with facesheet for transfer. PASRR completed, with facesheet. All sent to [facility] Admissions. DCP spoke with pt's daughter, Jessie. Pt daughter requested to be present during transport to [facility] (daughter can be available Wednesday at 1430) to assist with pt's confusion/mood. DCP discussed that [facility] intake usually ends at 1500 so transport would be likely before 1400. Pt daughter verbalized understanding. DCP utilized reflective listening to assist with reassuring pt's daughters concerns - discussed that these concerns are noted and passed on to next DCP. Plan: Anticipating discharge tomorrow, 02/04 after 1200 to [facility]. CM Team will continue to follow for coordination of discharge plans. AKILAH Chatman
--- NOTE | 2024-02-04 12:43 | P.PN_ITS ---
Subjective Subjective Interval history: Summary: 78-year-old female with history of dementia, hypertension and distant tobacco use who presented with confusion and a fall. She was initially hypertensive and found to have evidence of urinary tract infection. Antibiotics were started in the emergency department. Subjective: No complaints today, continued hip pain stable. Daughter reports long standing R hip pain slightly worsening recently. Exam Vital Signs (past 8 hours): - 02/04/24 07:00 02/04/24 11:00 Temperature 98.0 F 97.1 F L Pulse Rate 69 68 Respiratory Rate 16 18 Blood Pressure 145/74 H 105/54 L Pulse Oximetry 98 97 Oxygen Flow Rate 0 0 Oxygen Delivery Method Room Air Oxygen Flow Rate 0 Narrative Exam Narrative: NAD. Fluent speech. Cognitively impaired. Lungs are clear, normal rate and effort. Heart is regular, no murmur gallop or rub. Abdomen is soft, non distended. Extremities are free of edema. Objective Labs 02/02/24 07:20 02/02/24 07:20 [facility] Medical History Palpitations H/O: HTN (hypertension) Surgical History No pertinent past surgical history Family History Father Cardiac disease Mother No significant medical problems Social History household members: family Smoking Status: Former smoker Assessment & Plan Assessment & Plan narrative: 1. Sepsis ruled out. Acute metabolic encephalopathy, present on admission and active. 2. Acute cystitis, present on admission and active. 3. Uncontrolled hypertension, present on admission and active. 4. Dementia, present on admission and active. 5. R hip severe osteoarthritis PLAN: -completed course of antibiotics. Remove IV and can discontinue 1:1 -blood cultures negative, urine cultures with sens. proteus. -Severe R hip arthritis on imaging, no fractures on pelvic xray. Continue pain control with naproxen BID scheduled (start on 20 mg protonix as well), PT and OT. Patient is weight bearing as tolerated. May need outpatient evaluation with orthopedic surgery depending on conservative measures. -SOFA score of 1 based on presentation, sepsis ruled out. Currently Full code. Inpatient status. Proxy: daughter. Dispo: inpatient. Discharge to SNF, rusty once off 1:1 for 24 hours. Medication list was completed today. Discussed with case management provider to contribute to the above history, assessment and plan. Time-Based Coding :: [TOTAL MINUTES] spent with patient and on the chart (including review of chart, obtaining history, exam, reviewing outside data, placing orders, documenting exam and treatment plan, and counseling patient) on [DATE].
[2024-02-04] MEDS: CALCIUM CARBONATE 500 MG TAB 1000 MG PO (12:52)
[2024-02-04 14:53] VITALS: BP 109/54; PULSE 67; RESP 16; TEMP 36.6; O2SAT 98
--- NOTE | 2024-02-04 15:40 | OT.IP.TRT ---
Current Diagnoses Unspecified dementia, unspecified severity, without behavioral disturbance, psychotic disturbance, mood disturbance, and anxiety (02/01/24) Metabolic encephalopathy (02/01/24) Essential (primary) hypertension (02/01/24) Urinary tract infection, site not specified (02/01/24) Occupational Therapy Treatment Note M2 OT-IP Current Condition Start: 02/02/24 13:43 Freq: Status: Active Protocol: Document 02/02/24 13:43 [facility] (Rec: 02/02/24 14:19 [facility] [id number]) Occupational Therapy Current Condition Current Condition Evaluation Date 02/02/24 Treatment Diagnosis UTI,GLF, acute metabolic encephalopathy Diagnosis Onset Date 02/01/24 M3 OT- IP Subjective and Pain Start: 02/02/24 13:43 Freq: Status: Active Protocol: Document 02/04/24 15:38 [facility] (Rec: 02/04/24 15:48 [facility] [id number]) OT- Subjective Occupational Therapy Visit Type Type Treatment Note Visit Start Time 15:09 Visit Stop Time 15:34 Occupational Therapy Visit Comments Patient Comments Pt not wanting to get up and states, I am fine. Pt then agreed to try to get up to use the bathroom after encouragement. OT Pain Assessment Pain When Pain Assessed During Mobility Pain Present Pain Present Pain Reported Location Right Hip Pain Behaviors Facial Grimacing,Wincing M4 OT- IP ADL's Start: 02/02/24 13:43 Freq: Status: Active Protocol: Document 02/04/24 15:38 [facility] (Rec: 02/04/24 15:48 [facility] [id number]) OT [id number] Comments OT Self-Feeding Comments Not at meal time. OT ADL-Grooming Comments OT Grooming Comments Not performed. OT ADL-Oral Care Comments Oral Care Comments Not performed. OT ADL-Dressing General Eval Lower Body Dressing Ability Maximum Assistance Areas Needing Assistance Socks OT ADL-Toileting General Evaluation Toileting Ability Moderate Assistance Areas Needing Assistance Manage Clothing,Perform Perineal Hygiene Comments OT Toileting Comments Pt attempted to wipe but unsteady on her feet and needing assist. One person assist to steady her while standing with the FWW and another for hygiene needs. OT ADL-Bathing Comments OT Bathing Comments Use of rolling shower chair would be beneficial. M5 OT- IP IADL's Start: 02/02/24 13:43 Freq: Status: Active Protocol: Document 02/02/24 13:43 [facility] (Rec: 02/02/24 14:19 [facility] [id number]) OT-Instrumental Activities of Daily Living Home Safety Awareness Awareness of Need for Assistance at Home Decreased Awareness Ability to Problem Solve Emergency Unable to Problem Solve Situations Home Safety Comments At this time pt is just mainly orientated to her name. Medication Management Medication Management Caregiver Administers Money Management Money Management Caregiver Provides Assistance Meal Preparation Meal Preparation Caregiver Provides Assist Supply Cataloguer Supply Cataloguer Caregiver Provides Assist M6 OT- IP Functional Cognition Start: 02/02/24 13:43 Freq: Status: Active Protocol: Document 02/04/24 15:38 [facility] (Rec: 02/04/24 15:48 [facility] [id number]) Cognitive Factors Limiting Selfcare Function Cognitive Ability Level of Alertness Alert,Confusional State Patient Orientation Name,Place Attention Span Ability Capable of Focused Attention, Unable to Focus,Unable to Sustain Attention Ability to Follow Commands Able to Follow One Step Commands with Increased Time, Able to Follow One Step Commands with Repetition Memory Description Short Term Impaired,Working Impaired Cognitive Comments Cognitive Assessment Comments Pt able to recall 3/4 kids name today. Pt not aware needing to have a bowel movement. Pt agreed to try to use the bathroom and when assist to wipe noted pt trying to have a bowel movement and had pt sit back down to the toilet. M7 OT- IP Mobility and Balance Start: 02/02/24 13:43 Freq: Status: Active Protocol: Document 02/04/24 15:38 [facility] (Rec: 02/04/24 15:48 [facility] [id number]) OT-Transfer Assessment Sit to and From Stand Sit to and from Stand Moderate Assistance,1 Person Assistance Transfers Transfer Ability Moderate Assistance,Maximum Assistance,1 Person Assistance Technique Transfer Destination Bed,Toilet Devices Transfer Assistive Devices Gait Belt,Front Wheeled Walker Comments Mobility Comments MODA to stand to the FWW and from MODA to MAX AX 1 with FWW as pt very unsteady on her feet with the FWW. OT- Balance Assessment Sitting Balance and Reactions Static Sitting Balance Ability Good Dynamic Sitting Balance Ability Fair Standing Balance and Reactions Static Standing Balance Ability Poor Dynamic Standing Balance Ability Poor M8 OT- IP Objective Assessments Start: 02/02/24 13:43 Freq: Status: Active Protocol: Document 02/02/24 13:43 [facility] (Rec: 02/02/24 14:19 [facility] [id number]) OT Gross Range of Motion Upper Extremity Range of Motion Assessment Bilaterally Impaired ROM Impairments Shoulder flexion 0-95, elbow to distal WFL bilaterally OT Strength Upper Extremity Strength Assessment Bilaterally Impaired Shoulder 3- Elbow 4- Forearm 4- Wrist 3+ Hand 3+ M9 OT- IP Assessment and Plan Start: 02/02/24 13:43 Freq: Status: Active Protocol: Document 02/04/24 15:38 [facility] (Rec: 02/04/24 15:48 [facility] [id number]) OT Summary Assessment and Plan Potential Rehabilitation Potential Fair Analytic Complexity at Evaluation Moderate Summary OT Impairments Strength,Balance,Functional Cognition,Functional Mobility, Self-Feeding,Grooming,Dressing ,Toileting,Toilet Transfers, Activity Tolerance Progress Towards Goals Progressing Toward Goals,Slow Progress due to Cognition Assessment Summary Pt moving some better and now just one person assist for transfer, but second person for safety with toileting needs. Pt seems not quite to her baseline with mobility needs but probably closer to her cognitive status of dementia. Pt will still benefit from skilled rehab to maximize her mobility needs. Pt however will need someone to assist for her cognitive and safety needs. Pt after rehab would benefit from GROUP HOME / memory care. Goals Self-Feeding Goal Standby Assistance Grooming Goal Standby Assistance Dressing Goal Minimal Assistance Toileting Goal Minimal Assistance Toilet Transfer Goal Standby Assistance Shower Transfer Goal Contact Guard Assistance Days to Meet Goals 24 Frequency of Treatment Other frequency 5x/week Treatment Plan OT Treatment Plan ADL Training,Functional Cognition Training,Functional Mobility,Patient/Family Education,Discharge Planning Discharge Recommendations OT Discharge Recommendations SNF Rehab Transportation Needs at Discharge Wheelchair/Cabulance
[2024-02-05 03:47] VITALS: BP 149/76; PULSE 64; RESP 22; TEMP 36.3; O2SAT 91
[2024-02-05] MEDS: PANTOPRAZOLE DR 20 MG TABLET PO (06:49)
--- NOTE | 2024-02-05 07:59 | PM.DS.1 ---
History of Present Illness History of Present Illness Date Patient Seen: 02/05/24 Chief complaint: fall, swollen feet, dementia Narrative: 78 y/o with PMH of dementia, HTN, former smoker, who presented to ED acutely confused, after she sustained GLF at home. Unable to provide history that was obtained from the daughter who found her on the floor. She did not sustain significant injuries in the presumed fall. Daughter reported on acute confusion, being off her baseline which is mild cognitive deficits, that are getting worse lately. ED workup shows UTI. Consistently hypertensive in the ED with SBP > 200. Confused, presumably encephalopathic without acute focal motor deficits. Discharge Providers Provider Date of admission: 02/01/24 20:01 Discharge Date: 02/05/24 Primary care physician: Tomer Calloway DO Consults: 02/01/24 17:06 Consult to PHYSICAL CHEMISTRY TEACHER - Plate Developer Stat Comment: Plate Developer Consult needed for:: Other reason (Comment) 02/01/24 22:07 Consult to Pastoral Services Routine Comment: Pt requests 02/02/24 10:16 Consult to Occupational Therapy Evaluate & Treat Comment: Physician Instructions: Evaluate and treat Consult to Physical Therapy Evaluate & Treat Comment: Physician Instructions: Evaluate and Treat Discharge provider: Sajan Santa MD Summary Hospital Course Hospital Course: Acute metabolic encephalopathy/Proteus UTI, -completed course of antibiotics, 01/31-02/03 IV Ceftriaxone -blood cultures negative, urine cultures with sens. proteus. Uncontrolled hypertension -Lisinopril Severe R hip arthritis on imaging, no fractures on pelvic xray. -Continue pain control with naproxen BID scheduled (start on 20 mg protonix as well), PT and OT. Patient is weight bearing as tolerated. May need outpatient evaluation with orthopedic surgery depending on conservative measures. Dementia Currently Full code. Proxy: daughter. [facility] to [facility], [facility] [place] Status at Discharge Cognitive/behavioral status at discharge: at baseline, oriented Overall status at discharge: patient is progressing back to baseline Exam Vital Signs (past 8 hours): - 02/05/24 03:47 Temperature 97.4 F L Pulse Rate 64 Respiratory Rate 22 Blood Pressure 149/76 H Pulse Oximetry 91 Oxygen Flow Rate 0 Oxygen Delivery Method Room Air Oxygen Flow Rate 0 Narrative Exam Narrative: Alert, oriented x3 Heart is regular rate and rhythm without murmur Lungs are clear to auscultation bilaterally Extremities have no ankle edema. Objective Labs 02/02/24 07:20 02/02/24 07:20 [facility] Medical History Palpitations H/O: HTN (hypertension) Surgical History No pertinent past surgical history Family History Father Cardiac disease Mother No significant medical problems Social History household members: family Smoking Status: Former smoker Discharge Plan Discharge Plan Patient Disposition: SNF Transfer to: [facility] and Healthcare Provider Discharge Comment: 78 F with dementia, admitted with acute encephalopathy due to UTI. Improved and completed antibiotics in the hospital. Has advanced R hip osteoarthritis, recommend continued therapies at SNF, recommend outpatient orthopedics evaluation. Discharge orders & Medications Prescriptions: New acetaminophen 325 mg Tablet 650 mg PO Q6H PRN (Reason: Fever/Mild Pain (1-3)) Qty: 60 0RF hydrocodone-acetaminophen 5-325 mg Tablet 1 tab PO Q4HR PRN (Reason: Pain, Moderate (4-6)) Qty: 40 0RF naproxen 250 mg Tablet 250 mg PO BIDWM Qty: 60 0RF pantoprazole 20 mg Tablet,Delayed Release (Dr/Ec) 20 mg PO 0700 Qty: 90 0RF lisinopril 10 mg Tablet 10 mg PO DAILY Qty: 30 0RF calcium carbonate 200 mg calcium (500 mg) Tablet,Chewable 1,000 mg PO Q4HR PRN (Reason: Dyspepsia) Qty: 30 0RF Discontinued naproxen 220 mg tablet 220 mg PO BID PRN (Reason: Pain (Scale Score 1-3)) Follow up/Referrals: Tomer Calloway DO [Primary Care Provider] - Discharge Health Status Precautions: Pimento Diet/Activity/Treatments Diet: Diet as Tolerated Liquid consistency: Normal/Thin Food texture: Regular Activity: As tolerated, no restrictions Special Rehabilitation Services Reason for rehabilitation: Recovery r/t decondition Rehab type: Physical therapy and Occupational therapy Visit Report/Discharge Packet Stand Alone Forms: Patient Portal/API Discharge Data Primary Care Provider: Tomer Calloway
[2024-02-05 08:07] VITALS: BP 156/68; PULSE 58
[2024-02-05] MEDS: lisinopriL 10 MG TABLET PO (08:07)
[2024-02-05] MEDS: NAPROXEN 250 MG TABLET PO (08:07)
[2024-02-05 08:10] VITALS: RESP 16; TEMP 36.7; O2SAT 96
--- NOTE | 2024-02-05 10:43 | CM.DPC ---
DCP Discharge SNF Per MD, pt remains stable to d/c to SNF today and no identified barriers to discharge. Per RN, pt has been sitter free since yesterday around 1145 with no behaviors or challenges. SW confirmed with [facility] that they can accept pt today and need to provide pickup with facility van around 1130. Some of d/c packet faxed to [facility] yesterday but SW refaxed signed med list, script, PASJATINDER, orders and d/c summary to review. SW spoke to pt's Dtr Dorothy and updated on above and Dorothy confirms she remains agreeable and plans to take time off work today to be present when pt admits to [facility] and to help get her settled in. MATTHIEU answered some questions regarding Medicare coverage for SNF and the process for [facility] application and assessment and financial approval and local [facility] that accept Medicaid. MATTHIEU received a call from Lurdes Smith from [facility] [phone] and email [email or web address] inquiring if pt still needs to be scheduled for functional assessment. SW left ms requesting urgent/expedited assessment be scheduled and updating that pt going to [facility] for SNF rehab this weekend. [facility] requesting a COVID swab result prior to admission today and order placed and RN kindly getting stat COVID nasal swab. Plan: Patient to d/c to [facility] today via facility van and Dtr present at 1130 and with [facility] application in process. JOSE Jiang
[2024-02-05 10:45] LABS: COVID19 -Nasal RAPID Negative (Negative)
--- NOTE | 2024-02-05 12:06 | PC.NURSE ---
Discharge: Pt A&O to self and daughter only. Able to pivot transfer to [facility], able to make needs known. No IV access present. Vital signs WDL. Report given to receiving nurse at [facility]. Pt assisted into transportation w/c at approximately 1130, transported via facility transport with daughter and facility manufacturers representative at approximately 1140 via facility vehicle.
== END 2024-02-05 11:40 | DRG 689 ==
LOC: ED 18:03 → AC 20:01
PROVIDERS: Emergency Medicine; Family Medicine; Admitting Provider Internal Medicine; Emergency Provider Emergency Medicine; PCP Internal Medicine; Referring Provider Emergency Medicine; Visit Provider Internal Medicine
DX: N30.00 Acute cystitis without hematuria (principal); G93.41 Metabolic encephalopathy; I10 Essential (primary) hypertension; F03.90 Unspecified dementia, unspecified severity, without behavioral disturbance, psychotic disturbance, mood disturbance, and anxiety; R29.6 Repeated falls; M16.11 Unilateral primary osteoarthritis, right hip; B96.4 Proteus (mirabilis) (morganii) as the cause of diseases classified elsewhere; Z87.891 Personal history of nicotine dependence
CPT/HCPCS: 36415; 71045; 72170; 73560; 80048; 80053; 81001; 83605; 83735; 83880; 84484; 85025; 85610; 87040; 87077; 87086; 87186; 87635; 93005; 96365; 97161; 97166; 97530; 97535; 99284; J0360; J0696

== ENCOUNTER → 2024-03-08 10:15 | Outpatient (ROUT) | payer MEDICARE, MEDICAID, SELFPAY ==
[2024-02-01 21:48] VITALS: BMI 27.3
[2024-03-08 10:26] LABS: Appearance Urine UA CLOUDY; Bilirubin Urine UA NEGATIVE (NEGATIVE); Color Urine UA YELLOW; Glucose Urine UA NEGATIVE (Negative); Ketones Urine UA NEGATIVE (NEGATIVE); Leukocyte Esterase Urine UA NEGATIVE (NEGATIVE); Nitrite Urine UA NEGATIVE (Negative); Occult Blood Urine UA NEGATIVE (Negative); Protein Urine UA NEGATIVE (Negative); Urobilinogen Urine UA 0.2 E.U./dL (0.2)
[2024-03-08 10:27] LABS: pH Urine UA 6.5 (4.5-8.0)
[2024-03-08 10:29] LABS: Add Manual Diff / Slide Review NO; Basophils Absolute Auto 0 /uL (0-100); Basophils Percent Auto 0.8 % (0-2); Eosinophils Absolute Auto 100 /uL (0-450); Eosinophils Percent Auto 3.1 % (2-4); Hematocrit 38.7 % (36-46); Hemoglobin 12.6 g/dL (12.0-16.0); Lymphocytes Absolute Auto 2200 /uL (1100-4500); Lymphocytes Percent Auto 47.6 % (25-40); Mean Corpuscular HGB Conc 32.4 % (30-36); Mean Corpuscular Hemoglobin 28.1 PG (26-34); Mean Corpuscular Volume 86.6 fL (80-100); Monocytes Absolute Auto 400 /uL (0-900); Monocytes Percent Auto 9.7 % (3-14); Neutrophils Absolute Auto 1800 /uL (1500-7000); Neutrophils Percent Auto 38.8 % (50-75); Platelet Count 197 X10^3/uL (150-400); Red Blood Cell Count 4.47 X10^6/uL (4.0-5.2); Red Cell Distribution Width 16.1 % (11.6-14.8); White Blood Cell Count 4.6 X10^3/uL (4.5-11.0)
[2024-03-08 10:29] LABS: Urine Volume 10mL (spun)
[2024-03-08 10:30] LABS: Bacteria Urine Many (>30); Culture Indicated Urine Specimen Cultured; RBC Urine None Seen (0-5/HPF); Squamous Epithelial Cell Urine None Seen (0-5/HPF); WBC Urine 1-5/HPF (0-5/HPF)
[2024-03-08 10:40] LABS: BUN Creatinine Ratio 20.3 (6-22); Blood Urea Nitrogen 14 mg/dL (7-17); Carbon Dioxide 28 mmol/L (22-32); Chloride 106 mmol/L (98-107); Estimated Glomerular Filt Rate > 60 mL/min (>60); Glucose 87 mg/dL (80-110); HEMOLYSIS < 15 (0-50); Potassium 4.6 mmol/L (3.4-5.1); Sodium 136 mmol/L (137-145)
== END ==
PROVIDERS: PCP Internal Medicine; Visit Provider Registered Nurse
DX: N39.0 Urinary tract infection, site not specified (principal)
CPT/HCPCS: 80048; 81001; 85025; 87086

== ENCOUNTER → 2024-03-18 09:51 | Outpatient (ROUT) | payer MEDICARE, MEDICAID, SELFPAY ==
[2024-02-01 21:48] VITALS: BMI 27.3
[2024-03-18 10:20] LABS: Appearance Urine UA SL CLOUDY; Bilirubin Urine UA NEGATIVE (NEGATIVE); Color Urine UA YELLOW; Glucose Urine UA NEGATIVE (Negative); Ketones Urine UA TRACE (NEGATIVE); Leukocyte Esterase Urine UA NEGATIVE (NEGATIVE); Nitrite Urine UA NEGATIVE (Negative); Occult Blood Urine UA NEGATIVE (Negative); Protein Urine UA NEGATIVE (Negative)
[2024-03-18 10:39] LABS: Bacteria Urine Moderate (10-30); Culture Indicated Urine Cult Not Indicated; RBC Urine 0-1/HPF (0-5/HPF); Squamous Epithelial Cell Urine 0-1 /HPF (0-5/HPF); Urine Volume 10mL (spun); WBC Urine 5-10/HPF (0-5/HPF)
== END ==
PROVIDERS: PCP Internal Medicine; Visit Provider Registered Nurse
DX: N39.0 Urinary tract infection, site not specified (principal)
CPT/HCPCS: 81001; 87077; 87086; 87186

== ENCOUNTER 2024-05-24 17:49 | Emergency (ER) | payer MEDICARE, MEDICAID, SELFPAY ==
[2024-02-01 21:48] VITALS: BMI 27.3
[2024-05-24] VITALS (8 sets, daily range): BP systolic 120–173; BP diastolic 70–106; PULSE 73–100; RESP 16–48; TEMP 36.8; O2SAT 90–96; BMI 24.5
--- NOTE | 2024-05-24 18:27 | DI.CT.S_ITS ---
PROCEDURE: CT HEAD/BRAIN WO CON INDICATIONS: glf, dementia TECHNIQUE: Noncontrast 4.5 mm thick angled axial sections acquired from the foramen magnum to the vertex, with coronal and sagittal reformats. For radiation dose reduction, the following was used: automated exposure control, adjustment of mA and/or kV according to patient size. COMPARISON: None. FINDINGS: Image quality: Diagnostic. CSF spaces: Basal cisterns are patent. No extra-axial fluid collections. The ventricles are symmetric in size and shape. Brain: No intracranial bleeds or masses. There is cerebral volume loss for age, with resultant ventricular and sulcal prominence. There are periventricular and deep white matter chronic small vessel ischemic changes. There is intracranial internal carotid artery atherosclerosis. Skull and face: Calvarium and visualized facial bones appear intact, without suspicious lesions. Sinuses: Visualized sinuses and mastoids are clear. IMPRESSION: No acute intracranial pathology. Dictated by: Houston Mora M.D. on 05/24/2024 at 19:08 Approved by: Houston Mora M.D. on 05/24/2024 at 19:09
--- NOTE | 2024-05-24 19:18 | ED.FALL ---
HPI - Fall General Chief Complaint: Fall Stated Complaint: GLF Time Seen by Provider: 05/24/24 18:21 Source: patient and EMS Mode of arrival: EMS History of Present Illness HPI Narrative: 78-year-old female with history of dementia presents from her assisted living facility for ground level fall. Patient is supposed to use a wheelchair but frequently forgets and tries to get up. This evening at dinner she was noticed to get up and fall, which prompted staff to call 911. Patient was not on blood thinners. Per EMS the patient was allegedly slightly more confused than normal. Family is currently at patient's that the patient was at her mental baseline. Patient is pleasantly demented, denying any complaints Related Data Previous Rx's Medication Instructions Recorded acetaminophen 325 mg tablet 650 mg (2 x 325 mg) PO Q6H PRN 02/04/24 Fever/Mild Pain (1-3) #60 tabs calcium carbonate 1,000 mg (5 x 200 mg calcium (500 02/04/24 mg)) PO Q4HR PRN Dyspepsia #30 tabs hydrocodone 5 mg-acetaminophen 325 1 tab PO Q4HR PRN Pain, Moderate 02/04/24 mg tablet (4-6) #40 tabs lisinopril 10 mg tablet 10 mg PO DAILY #30 tabs 02/04/24 naproxen 250 mg tablet 250 mg PO BIDWM #60 tabs 02/04/24 pantoprazole 20 mg tablet,delayed 20 mg PO 0700 #90 tabs 02/04/24 release Allergies Allergy/AdvReac Type Severity Reaction Status Date / Time Penicillins Allergy Severe Anaphylaxis Verified 02/01/24 20:05 Sulfa (Sulfonamide Allergy Severe ANAPHYLAXIS Verified 02/01/24 20:05 Antibiotics) Patient History Medical History Palpitations H/O: HTN (hypertension) Surgical History No pertinent past surgical history Family History Father Cardiac disease Mother No significant medical problems Social History household members: family Smoking Status: Former smoker Smoking Status: Former smoker alcohol intake frequency: holidays/special occasions only Exam Initial Vital Signs Initial Vital Signs: Vital Signs Temperature 98.3 F 05/24/24 18:14 Pulse Rate 73 05/24/24 18:14 Respiratory Rate 18 05/24/24 18:14 Blood Pressure 120/72 05/24/24 18:14 Pulse Oximetry 95 05/24/24 18:14 Oxygen Delivery Method Room Air 05/24/24 18:14 Const: Awake, alert, no acute distress, debilitated, frail Cardiac: regular rate, regular rhythm RESP: unlabored, clear bilaterally, no wheezing GI: Soft, nontender, nondistended MSK: Atraumatic, 2+ nonpitting edema to knees (baseline per family) full range of motion Skin: Warm, Dry, intact, no rashes Neuro: AO x1, CN II-XII grossly intact, moves all extremities Course Orders Ordered: ED Orders 05/24/24 18:27 CT head/brain wo con Stat Vital Signs Vital signs: Vital Signs - 8 hr 05/24/24 18:14 05/24/24 19:26 05/24/24 19:30 Temperature 98.3 F Pulse Rate 73 78 77 Respiratory Rate 18 17 16 Blood Pressure 120/72 Pulse Oximetry 95 93 96 Oxygen Delivery Method Room Air 05/24/24 19:31 05/24/24 19:31 05/24/24 20:00 Temperature Pulse Rate 77 100 H Respiratory Rate 18 40 H Blood Pressure 173/70 H Pulse Oximetry 90 L 94 Oxygen Delivery Method 05/24/24 20:01 05/24/24 20:01 05/24/24 20:30 Temperature Pulse Rate 79 79 Respiratory Rate 48 H 28 H Blood Pressure 143/106 H Pulse Oximetry 94 95 Oxygen Delivery Method Room Air Room Air 05/24/24 20:31 05/24/24 20:31 Temperature Pulse Rate 89 Respiratory Rate 24 Blood Pressure 139/91 H Pulse Oximetry 93 Oxygen Delivery Method Room Air MDM - Fall Imaging Data CT scan - head: Radiologist's Impression: PROCEDURE: CT HEAD/BRAIN WO CON INDICATIONS: glf, dementia TECHNIQUE: Noncontrast 4.5 mm thick angled axial sections acquired from the foramen magnum to the vertex, with coronal and sagittal reformats. For radiation dose reduction, the following was used: automated exposure control, adjustment of mA and/or kV according to patient size. COMPARISON: None. FINDINGS: Image quality: Diagnostic. CSF spaces: Basal cisterns are patent. No extra-axial fluid collections. The ventricles are symmetric in size and shape. Brain: No intracranial bleeds or masses. There is cerebral volume loss for age, with resultant ventricular and sulcal prominence. There are periventricular and deep white matter chronic small vessel ischemic changes. There is intracranial internal carotid artery atherosclerosis. Skull and face: Calvarium and visualized facial bones appear intact, without suspicious lesions. Sinuses: Visualized sinuses and mastoids are clear. IMPRESSION: No acute intracranial pathology. Dictated by: Houston Mora M.D. on 05/24/2024 at 19:08 Approved by: Houston Mora M.D. on 05/24/2024 at 19:09 MDM Narrative Medical decision making narrative: Well-appearing patient with advanced dementia with mechanical ground level fall. Family at bedside states that patient frequently gets up to walk even when she was supposed to use a wheelchair or a walker. There was concern that patient was possibly more confused than normal per staff at the [place] [facility], however family at bedside state that patient was at her mental baseline. Patient was pleasantly demented and denying any complaints. CT brain negative for acute findings. Patient discharged back to her facility in stable condition. Discharge Plan Departure Patient Disposition: Home Clinical Impression: Closed head injury Instructions: How to Prevent Falls Activity Restrictions/Additional Instructions: The head CT today is normal. Follow up as needed with your primary care physician. Prescriptions: No Action acetaminophen 325 mg Tablet 650 mg PO Q6H PRN (Reason: Fever/Mild Pain (1-3)) Qty: 60 0RF hydrocodone-acetaminophen 5-325 mg Tablet 1 tab PO Q4HR PRN (Reason: Pain, Moderate (4-6)) Qty: 40 0RF naproxen 250 mg Tablet 250 mg PO BIDWM Qty: 60 0RF pantoprazole 20 mg Tablet,Delayed Release (Dr/Ec) 20 mg PO 0700 Qty: 90 0RF lisinopril 10 mg Tablet 10 mg PO DAILY Qty: 30 0RF calcium carbonate 200 mg calcium (500 mg) Tablet,Chewable 1,000 mg PO Q4HR PRN (Reason: Dyspepsia) Qty: 30 0RF Referrals: Tomer Calloway DO [Primary Care Provider] - Stand Alone Forms: Patient Portal/API/Survey
== END 2024-05-24 20:47 | disposition home or self-care (01) ==
PROVIDERS: Emergency Provider Emergency Medicine; PCP Internal Medicine
DX: S09.90XA Unspecified injury of head, initial encounter (principal); W18.30XA Fall on same level, unspecified, initial encounter; Y93.89 Activity, other specified
CPT/HCPCS: 70450; 99281; 99284

== ENCOUNTER 2024-09-04 02:57 | Emergency (ER) | payer MEDICARE, MEDICAID, SELFPAY ==
[2024-02-01 21:48] VITALS: BMI 27.3
[2024-09-04] VITALS (7 sets, daily range): BP systolic 171–210; BP diastolic 84–102; PULSE 65–70; RESP 18; TEMP 36.6; O2SAT 94–98
--- NOTE | 2024-09-04 03:01 | DI.CT.S_ITS ---
PROCEDURE: CT HEAD/BRAIN WO CON INDICATIONS: Trauma, hit left forehead, fall from wheelchair TECHNIQUE: Noncontrast 4.5 mm thick angled axial sections acquired from the foramen magnum to the vertex, with coronal and sagittal reformats. For radiation dose reduction, the following was used: automated exposure control, adjustment of mA and/or kV according to patient size. COMPARISON: [facility], CT, CT HEAD/BRAIN WO CON, 05/24/2024, 18:52. FINDINGS: Image quality: Diagnostic. CSF spaces: Basal cisterns are patent. No extra-axial fluid collections. The ventricles are symmetric in size and shape. Brain: No intracranial bleeds or masses. There is cerebral volume loss for age, with resultant ventricular and sulcal prominence. There are periventricular and deep white matter chronic small vessel ischemic changes. There is intracranial internal carotid artery atherosclerosis. Skull and face: Calvarium and visualized facial bones appear intact, without suspicious lesions. Minimal left frontal scalp contusion. Sinuses: Minimal left maxillary sinus mucosal thickening. Remainder of the paranasal sinuses appear clear. Mastoid air cells are well-aerated. IMPRESSION: 1. CT head without acute intracranial abnormalities or acute calvarial fractures. 2. Age-related senescent changes and sequela of chronic small vessel ischemic disease. No significant discrepancy with the rn shift mgr radiology preliminary report. Dictated by: Donte Hernandez M.D. on 09/04/2024 at 6:57 Approved by: Donte Hernandez M.D. on 09/04/2024 at 6:59
--- NOTE | 2024-09-04 03:01 | ED_ITS ---
HPI - Fall General Chief Complaint: Fall Stated Complaint: Fall from w/c Time Seen by Provider: 09/04/24 03:00 History of Present Illness HPI Narrative: Patient is a 78-year-old female with a history of dementia, hypertension, recurrent falls, presents from care facility for witnessed fall from wheelchair. According to EMS they were told that the patient was in their wheelchair lifted her legs and fell forward striking her head no LOC was able to stand bear weight pivot at time of evaluation by EMS, she is not on any blood thinners she is currently at baseline, patient presents with POLST form stating comfort care measures only she is DNR/DNI, according to medics they did call/talk with daughter who is power of bankruptcy attorney and wanted her to at least be ?evaluated in the emergency department. At time of evaluation patient is alert to self only, she is moving all 4 extremities spontaneously she states that she does not remember how she fell but her only complaint is pain to the top of her right forehead. NIH of 0 no focal deficits Related Data Previous Rx's Medication Instructions Recorded acetaminophen 325 mg tablet 650 mg (2 x 325 mg) PO Q6H PRN 02/04/24 Fever/Mild Pain (1-3) #60 tabs calcium carbonate 1,000 mg (5 x 200 mg calcium (500 02/04/24 mg)) PO Q4HR PRN Dyspepsia #30 tabs hydrocodone 5 mg-acetaminophen 325 1 tab PO Q4HR PRN Pain, Moderate 02/04/24 mg tablet (4-6) #40 tabs lisinopril 10 mg tablet 10 mg PO DAILY #30 tabs 02/04/24 naproxen 250 mg tablet 250 mg PO BIDWM #60 tabs 02/04/24 pantoprazole 20 mg tablet,delayed 20 mg PO 0700 #90 tabs 02/04/24 release Allergies Allergy/AdvReac Type Severity Reaction Status Date / Time Penicillins Allergy Severe Anaphylaxis Verified 02/01/24 20:05 Sulfa (Sulfonamide Allergy Severe ANAPHYLAXIS Verified 02/01/24 20:05 Antibiotics) Review of Systems Review of Systems Narrative: General: Positive Fall from wheelchair, Denies fever, chills, weight loss HEENT: Positive Pain to the right forehead, Denies headache, eye drainage, eye irritation, head trauma, sore throat, voice change Cardiovascular: Denies any chest pain, palpitations, tachycardia Respiratory: Denies any shortness of breath, cough, wheeze, stridor GI/: Denies any abdominal pain, nausea, vomiting, diarrhea, bright red blood per rectum, melanotic stools, urinary frequency, urinary retention, dysuria, hematuria MSK: Denies any joint pain, muscle pains, swelling Skin: Denies any rashes, lesions, discoloration Neuro: Denies any headache, lightheadedness, dizziness, fainting, weakness Psych: Denies SI/HI Patient History Medical History Palpitations H/O: HTN (hypertension) Surgical History (Reviewed 05/25/24 @ :56 by Lizbeth Avila MD) No pertinent past surgical history Family History (Reviewed 05/25/24 @ :56 by Lizbeth Avila MD) Father Cardiac disease Mother No significant medical problems Social History (Reviewed 05/25/24 @ :56 by Lizbeth Avila MD) household members: family Smoking Status: Former smoker Smoking Status: Former smoker alcohol intake frequency: holidays/special occasions only Exam Narrative Exam Narrative: General: Cooperative, comfortable, well-developed, not in acute distress HEENT: Patient with ecchymosis noted to the right forehead, no palpable step- offs, PERRLA, normal sclera, eyelids normal, Neck: Active full range of motion, atraumatic Chest: Normal to inspection, negative crepitus, no overlying erythema ecchymosis Respiratory: Normal respiratory effort, not in acute respiratory distress, clear to auscultation bilaterally negative cough, wheeze, tachypnea, rhonchi, rales Cardiology: Regular rate rhythm negative gallop, murmur, rubs GI/: Normal to inspection, soft, nonrigid, no tenderness to palpation, exam deferred MSK: Full range of active range of motion of all 4 extremities, atraumatic, there is no tenderness to palpation of any bony prominences there is no tenderness to palpation of the midline cervical spine thoracic spine. Patient is wheelchair bound at baseline but is able to stand bear weight and pivot Skin: No rashes lesions noted Neuro: Patient with history of dementia at baseline, alert to self only, no focal deficits NIH of 0 Psych: Cooperative, negative suicidal or homicidal ideations Initial Vital Signs Initial Vital Signs: Vital Signs Temperature 97.9 F 09/04/24 03:05 Pulse Rate 70 09/04/24 03:05 Respiratory Rate 18 09/04/24 03:05 Blood Pressure 210/85 H 09/04/24 03:05 Pulse Oximetry 97 09/04/24 03:05 Oxygen Delivery Method Room Air 09/04/24 03:05 Course Orders Ordered: ED Orders 09/04/24 03:01 CT cervical spine wo con Stat CT head/brain wo con Stat Vital Signs Vital signs: Vital Signs - 8 hr 09/04/24 03:05 Temperature 97.9 F Pulse Rate 70 Respiratory Rate 18 Blood Pressure 210/85 H Pulse Oximetry 97 Oxygen Delivery Method Room Air MDM - Fall Differential Diagnosis Differential diagnosis: Likely other (Closed head injury, cervical neck fracture, intracranial hemorrhage) Imaging Data CT scan - head: Radiologist's Impression: Preliminary read showing no acute intracranial hemorrhage or mass effect, mild right frontal scalp swelling was noted, tiny old lacunar infarcts present but no acute findings CT - cervical spine: Radiologist's Impression: Preliminary read showing no acute fractures, multilevel mild cervical misalignment probably chronic with spondylosis noted MDM Narrative Medical decision making narrative: 78-year-old female with a past medical history of dementia, hypertension, brought in by EMS from care facility for witnessed fall from wheelchair. According to the medics they were called because the patient was in her wheelchair, and staff stated that she lifted her legs up and fell forward and hit the right side of her head. There was no LOC she was able to stand bear weight pivot for medics at arrival. She is only complaining of a ?bump to the right side of her forehead, she is not on any blood thinners. Patient does arrive with POLST form that states that she is DNR/DNI comfort measures only, according to medics the power of bankruptcy attorney who is the daughter was called prior to arrival here and wanted the patient to at least be ?checked out. At time of evaluation patient is at baseline she is only alert to self. Pleasantly demented. She is not complaining of any other pain/injuries. On exam there is hematoma noted to the right forehead otherwise no tenderness to palpation of any of the bony prominences. Patient had CT scan of her head and neck here in the emergency department without any acute traumatic injuries, patient at baseline we will be sent back to facility. Daughter is at bedside she understands and agrees with this plan. Discharge Plan Departure Patient Disposition: Home Clinical Impression: Closed head injury, Traumatic hematoma of forehead Activity Restrictions/Additional Instructions: Please follow up with your primary care doctor Please read the discharge instructions sheet carefully and bring all papers to all doctor follow-up visits, as it may contain information that your doctor may want to see. Disease processes change and evolve, if your symptoms worsen or if you develop any new symptoms that are concerning to you please return for evaluation. Your evaluation today does not show any evidence of any life- threatening/serious illnesses requiring admission to the hospital or surgery. Please follow-up with your doctor for re-evaluation in approximately 1 day. Seek immediate medical attention for any worrisome symptoms. *If you do not have a primary care provider please contact the [facility] Resource line at [phone]. They will ask some questions about your medical history and help get you set up with a doctor in the community. Prescriptions: No Action acetaminophen 325 mg Tablet 650 mg PO Q6H PRN (Reason: Fever/Mild Pain (1-3)) Qty: 60 0RF hydrocodone-acetaminophen 5-325 mg Tablet 1 tab PO Q4HR PRN (Reason: Pain, Moderate (4-6)) Qty: 40 0RF naproxen 250 mg Tablet 250 mg PO BIDWM Qty: 60 0RF pantoprazole 20 mg Tablet,Delayed Release (Dr/Ec) 20 mg PO 0700 Qty: 90 0RF lisinopril 10 mg Tablet 10 mg PO DAILY Qty: 30 0RF calcium carbonate 200 mg calcium (500 mg) Tablet,Chewable 1,000 mg PO Q4HR PRN (Reason: Dyspepsia) Qty: 30 0RF Referrals: Tomer Calloway DO [Primary Care Provider] - Stand Alone Forms: Patient Portal/API/Survey
--- NOTE | 2024-09-04 03:01 | DI.CT.S_ITS ---
PROCEDURE: CT CERVICAL SPINE WO CON INDICATIONS: trauma TECHNIQUE: Noncontrast 3 mm thick sections acquired from the skull base to the T4 level. Sagittal and coronal reformats were then constructed. For radiation dose reduction, the following was used: automated exposure control, adjustment of mA and/or kV according to patient size. COMPARISON: None. FINDINGS: Image quality: Diagnostic Bones: No acute fractures or dislocations. No acute compression fractures of the vertebral bodies. Craniocervical junction is intact. C1-C2 relationship is preserved. Visualized superior ribs are intact. Straightening of cervical lordosis which may be due to patient positioning and/or concurrent muscle spasms. Moderate-severe multilevel cervical spondylosis. Minimal anterolisthesis of C3 on C4 likely related to spondylitic changes. Soft tissues: Prevertebral soft tissues are normal in thickness. No paravertebral hematomas. No apical pneumothoraces. IMPRESSION: No displaced fracture or traumatic subluxation. No significant discrepancy with the nightclub manager radiology preliminary report. Dictated by: Donte Hernandez M.D. on 09/04/2024 at 6:59 Approved by: Donte Hernandez M.D. on 09/04/2024 at 7:02
== END 2024-09-04 04:26 | disposition home or self-care (01) ==
PROVIDERS: Emergency Provider Student in an Organized Health Care Education/Training Program; PCP Internal Medicine
DX: S09.90XA Unspecified injury of head, initial encounter (principal); S00.83XA Contusion of other part of head, initial encounter; R29.6 Repeated falls; R29.700 NIHSS score 0; W05.0XXA Fall from non-moving wheelchair, initial encounter
CPT/HCPCS: 70450; 72125; 99281; 99284

== ENCOUNTER → 2024-09-17 17:04 | Outpatient (ROUT) | payer MEDICARE, MEDICAID, SELFPAY ==
[2024-02-01 21:48] VITALS: BMI 27.3
[2024-09-17 17:18] LABS: Appearance Urine UA SL CLOUDY; Bilirubin Urine UA NEGATIVE (NEGATIVE); Color Urine UA YELLOW; Glucose Urine UA NEGATIVE (Negative); Ketones Urine UA NEGATIVE (NEGATIVE); Leukocyte Esterase Urine UA TRACE (NEGATIVE); Nitrite Urine UA NEGATIVE (Negative); Occult Blood Urine UA NEGATIVE (Negative); Protein Urine UA NEGATIVE (Negative); Specific Gravity Urine UA 1.015 (1.000-1.035); Urobilinogen Urine UA 0.2 E.U./dL (0.2)
[2024-09-17 17:40] LABS: RBC Urine 0-1/HPF (0-5/HPF); Urine Volume 10mL (spun); WBC Urine 1-5/HPF (0-5/HPF)
[2024-09-17 17:41] LABS: Bacteria Urine Moderate (10-30); Squamous Epithelial Cell Urine 0-1 /HPF (0-5/HPF)
== END ==
PROVIDERS: PCP Internal Medicine; Visit Provider Registered Nurse
DX: Z13.89 Encounter for screening for other disorder (principal)
CPT/HCPCS: 81001; 87086

== ENCOUNTER → 2024-09-20 06:15 | Outpatient (ROUT) | payer MEDICARE, MEDICAID, SELFPAY ==
[2024-02-01 21:48] VITALS: BMI 27.3
[2024-09-20 08:17] LABS: Hematocrit 37.2 % (36-46); Hemoglobin 12.4 g/dL (12.0-16.0); Mean Corpuscular HGB Conc 33.3 % (30-36); Mean Corpuscular Hemoglobin 31.9 PG (26-34); Platelet Count 237 X10^3/uL (150-400); Red Blood Cell Count 3.88 X10^6/uL (4.0-5.2); Red Cell Distribution Width 13.3 % (11.6-14.8)
[2024-09-20 08:35] LABS: Alanine Aminotransferase 14 IU/L (<35); Albumin 4.2 g/dL (3.5-5.0); Albumin Globulin Ratio 1.6 (1.0-2.8); Alkaline Phosphatase 76 U/L (38-126); Aspartate Aminotransferase 23 IU/L (14-36); BUN Creatinine Ratio 28.7 (6-22); Bilirubin Total 0.4 mg/dL (0.2-1.3); Blood Urea Nitrogen 25 mg/dL (7-17); Carbon Dioxide 27 mmol/L (22-32); Chloride 101 mmol/L (98-107); Estimated Glomerular Filt Rate > 60 mL/min (>60); Globulin 2.6 g/dL (1.7-4.1); Glucose 83 mg/dL (80-110); HEMOLYSIS < 15 (0-50); Magnesium 2.2 mg/dL (1.6-2.3); Potassium 4.6 mmol/L (3.4-5.1); Sodium 137 mmol/L (137-145); Total Protein 6.8 g/dL (6.3-8.2)
[2024-09-20 09:08] LABS: Thyroid Stimulating Hormone 1.47 uIU/mL (0.47-4.68)
[2024-09-20 09:43] LABS: Folate 9.1 ng/mL (2.76-20.0); Vitamin B12 446 pg/mL (239-931)
== END ==
PROVIDERS: PCP Internal Medicine; Visit Provider Registered Nurse
DX: R45.1 Restlessness and agitation (principal); F03.90 Unspecified dementia, unspecified severity, without behavioral disturbance, psychotic disturbance, mood disturbance, and anxiety; R60.0 Localized edema
CPT/HCPCS: 36415; 80053; 82607; 82746; 83735; 84443; 85027

== ENCOUNTER 2024-11-05 00:10 | Emergency (ER) | payer MEDICARE, MEDICAID, SELFPAY ==
[2024-02-01 21:48] VITALS: BMI 27.3
[2024-11-05] VITALS (7 sets, daily range): BP systolic 128–192; BP diastolic 61–84; PULSE 59–75; RESP 16–20; TEMP 36.6; O2SAT 95–100
--- NOTE | 2024-11-05 00:26 | DI.RAD.S_ITS ---
PROCEDURE: XR HIP W PEL IF DONE RT 2V INDICATIONS: rolled off bed/pain TECHNIQUE: AP pelvis with lateral view(s) of the right hip(s). COMPARISON: None. FINDINGS: Bones: No acute right hip fracture or dislocation. Asymmetric severe right hip joint osteoarthritis with extensive remodeling of right acetabulum and right femoral head. Avascular necrosis of femoral head cannot be excluded. Pelvic ring is intact. Degenerative disc disease in visualized lower lumbar spine is seen. Soft tissues: The visualized bowel gas pattern is normal. No suspicious soft tissue calcifications. IMPRESSION: No acute right hip fracture or dislocation. Severe right hip joint osteoarthritis and suggestion of avascular necrosis of right femoral head. Dictated by: Sean Fortune M.D. on 11/05/2024 at 1:26 Approved by: Sean Fortune M.D. on 11/05/2024 at 1:27
--- NOTE | 2024-11-05 02:09 | ED.FALL ---
HPI - Fall General Chief Complaint: Fall Stated Complaint: rolled out of bed-c/o R knee/head/neck/back pain Time Seen by Provider: 11/05/24 00:13 Source: patient and EMS Mode of arrival: EMS History of Present Illness HPI Narrative: 79-year-old woman with a history of dementia, and dementia facility currently, hypertension, reflux reportedly rolled out of bed landing on her right hip. Complaining of some right hip pain. It is unclear if she actually gets out of bed or into a walker at baseline. She is confused enough that her answers to are you hurting very each time they are asked. as best I can tell, she is having some mild pain in the right hip but does not seem to object with passive internal or external rotation. No bruising or contusion. Review of systems is not possible due to her cognitive status Related Data Previous Rx's ?Medication ?Instructions ?Recorded acetaminophen 325 mg tablet 650 mg (2 x 325 mg) PO Q6H PRN 02/04/24 Fever/Mild Pain (1-3) #60 tabs calcium carbonate 1,000 mg (5 x 200 mg calcium (500 02/04/24 mg)) PO Q4HR PRN Dyspepsia #30 tabs hydrocodone 5 mg-acetaminophen 325 1 tab PO Q4HR PRN Pain, Moderate 02/04/24 mg tablet (4-6) #40 tabs lisinopril 10 mg tablet 10 mg PO DAILY #30 tabs 02/04/24 naproxen 250 mg tablet 250 mg PO BIDWM #60 tabs 02/04/24 pantoprazole 20 mg tablet,delayed 20 mg PO 0700 #90 tabs 02/04/24 release Allergies Allergy/AdvReac Type Severity Reaction Status Date / Time Penicillins Allergy Severe Anaphylaxis Verified 11/05/24 00:22 Sulfa (Sulfonamide Allergy Severe ANAPHYLAXIS Verified 11/05/24 00:22 Antibiotics) Patient History Medical History Palpitations H/O: HTN (hypertension) Surgical History No pertinent past surgical history Family History Father Cardiac disease Mother No significant medical problems Social History household members: family alcohol intake frequency: holidays/special occasions only Exam Initial Vital Signs Initial Vital Signs: Vital Signs Temperature 97.9 F 11/05/24 00:10 Pulse Rate 65 11/05/24 00:10 Respiratory Rate 16 11/05/24 00:10 Blood Pressure 192/84 H 11/05/24 00:10 Pulse Oximetry 100 11/05/24 00:10 Oxygen Delivery Method Room Air 11/05/24 00:10 General: frail, lying on her left side not complaining of the pain HEENT: Moist mucous membranes, normal sclera with reactive pupils, Neck: no midline cervical spine tenderness Respiratory: Full and symmetrical air movement, no pain with compression of the thorax Cardiac: Regular rate and rhythm no murmurs no bruits Abdomen: Soft, nontender, no flank pain, no bruising or contusion Skin: Warm quite thin, no significant bruising Neurologic: seems to be moving all extremities Extremities: No obvious trauma , significant atrophy, unclear if she actually walks or gets out of bed at her baseline Psych: Cooperative, Course Orders Ordered: ED Orders 11/05/24 00:26 XR hip w pel RT 2V Stat Vital Signs Vital signs: Vital Signs - 8 hr 11/05/24 00:10 11/05/24 00:13 11/05/24 00:13 Temperature 97.9 F Pulse Rate 65 65 Respiratory Rate 16 20 Blood Pressure 192/84 H 192/84 H Pulse Oximetry 100 100 Oxygen Delivery Method Room Air 11/05/24 00:30 11/05/24 00:31 11/05/24 00:31 Temperature Pulse Rate 59 L 59 L Respiratory Rate 16 19 Blood Pressure 128/61 Pulse Oximetry 95 96 Oxygen Delivery Method 11/05/24 01:30 11/05/24 01:34 11/05/24 01:34 Temperature Pulse Rate 70 61 Respiratory Rate Blood Pressure 144/75 H Pulse Oximetry 99 98 Oxygen Delivery Method 11/05/24 02:00 11/05/24 02:00 Temperature Pulse Rate 75 Respiratory Rate 18 Blood Pressure 151/63 H Pulse Oximetry 97 Oxygen Delivery Method MDM - Fall MDM Narrative Medical decision making narrative: 79-year-old woman currently in a dementia care facility ruled out of bed was on the ground for approximately 5 minutes. As best I can tell she is complaining of right hip pain x-rays are unremarkable. She is essentially bed-bound. Has no obvious abrasions or contusions. No obvious evidence of fractures or tenderness with palpation. She has no specific complaints or concerns. At this time I believe that no further workup is required and we will arrange for BLS transport back to her dementia care facility. Discharge Plan Departure Patient Disposition: Home Clinical Impression: Accidental fall from bed Qualifiers: Encounter type: initial encounter Qualified Code(s): W06.XXXA - Fall from bed, initial encounter Dementia Qualifiers: Dementia type: unspecified type Dementia severity: severe Dementia behavioral or psychological symptom: without behavioral, psychotic, or mood disturbance or anxiety Qualified Code(s): F03.C0 - Unspecified dementia, severe, without behavioral disturbance, psychotic disturbance, mood disturbance, and anxiety Activity Restrictions/Additional Instructions: Tiffany was evaluated in the emergency department after reportedly accidentally falling from her bed. She did not have any obvious pain complaints or bruising. She seemed to indicate that the right hip maybe hurting. This was x-rayed and showed no acute fractures. She has not needed any medication during her emergency stay she is safe for transport back to her dementia care facility. No recommendations for changing current orders when she returns to her facility. Prescriptions: No Action acetaminophen 325 mg Tablet 650 mg PO Q6H PRN (Reason: Fever/Mild Pain (1-3)) Qty: 60 0RF hydrocodone-acetaminophen 5-325 mg Tablet 1 tab PO Q4HR PRN (Reason: Pain, Moderate (4-6)) Qty: 40 0RF naproxen 250 mg Tablet 250 mg PO BIDWM Qty: 60 0RF pantoprazole 20 mg Tablet,Delayed Release (Dr/Ec) 20 mg PO 0700 Qty: 90 0RF lisinopril 10 mg Tablet 10 mg PO DAILY Qty: 30 0RF calcium carbonate 200 mg calcium (500 mg) Tablet,Chewable 1,000 mg PO Q4HR PRN (Reason: Dyspepsia) Qty: 30 0RF Referrals: Tomer Calloway DO [Primary Care Provider, Internal Medicine] Stand Alone Forms: Patient Portal/API/Survey
== END 2024-11-05 04:48 | disposition home or self-care (01) ==
PROVIDERS: Emergency Provider Emergency Medicine; PCP Internal Medicine
DX: F03.C0 Unspecified dementia, severe, without behavioral disturbance, psychotic disturbance, mood disturbance, and anxiety (principal); M25.551 Pain in right hip; W06.XXXA Fall from bed, initial encounter
CPT/HCPCS: 73502; 99281; 99283

== ENCOUNTER → 2024-11-28 09:03 | Outpatient (CLI) | payer MEDICARE, MEDICAID, SELFPAY ==
[2024-02-01 21:48] VITALS: BMI 27.3
--- NOTE | 2024-11-28 12:11 | ST.SWALLOW ---
Visit Care Team Role Provider Type Tomer Calloway DO Primary Care Provider Physician Specialty: Internal Medicine Address: [address] [place] [address], [id number] Email: [email or web address] SLOANE Anna Attending Provider Non-Staff Referring Provider Specialty: Medical Address: [address], [address] Email: Modified Barium Swallow Study CHEMISTRY PHYSICS TEACHER Modified Barium Swallow Study Start: 11/28/24 10:49 Freq: Status: Active Protocol: Document 11/28/24 10:51 LNK (Rec: 11/28/24 12:10 LNK Desktop) Modified Barium Swallow Study Total Time Visit Start Time 09:15 Visit Stop Time 10:00 Total Visit Minutes 45 Referral Referring Physician SLOANE Anna; Albino Mc MD Reason for Referral dysphagia Setting Setting Outpatient Care Patient Information Identification Type Name,Date of Patient History [id number] woman with a history of dementia, hypertension, reflux. Pt has a diagnosis of dementia and currently lives in a memory care center. pt's level of confusion prevented gathering more thorough PMH. According to the paperwork sent from the [facility] [place], the CHEMISTRY PHYSICS TEACHER requested an MBSS to assess pharyngeal function. pt is currently on a puree texture with thin liquids. Subjective Pt entered the flouro room with [facility] who provided background information . Pt was confused and was unable to answer questions reliably. Pt was seated in the fluoroscopy chair. Directions and procedures were described for her attending caregiver, who indicated she understood and agreed to proceed. Patient Positioning Position View Lat-A/P Imaging Lateral View Textures Administered Trials Presented Thin Liquid via Spoon (IDDSI 0),Extremely Thick Liquid via Spoon (IDDSI 4),Regular (IDDSI 7) Barium Tablet Yes The IDDSI Framework Protocol: IDDSI.1 Oral Impairment Source: The Modified Barium Swallow Impairment Profile (MBSImP??) Lip Closure Escape from interlab.space/lat.junct.;no ext. beyond vermilion border Tongue Control Cohesive bolus between tongue to palatal seal During Bolus Hold Bolus Preparation/ Disorganized chewing/mashing with solid pieces of bolus Mastication unchewed Bolus Transport/ Delayed initiation of tongue motion Lingual Motion Oral Residue Residue collection on oral structures Location Floor of mouth,Lateral sulci Initiation of Bolus head at pyriforms Pharyngeal Swallow Additional Oral *Pt had an ill-fitting lower denture in need of Impairment cleaning. She had no upper denture. Observations *Mastication was noted to be anterior munching. She was unable to chew a cookie with barium, spitting most of it out. This may be related to lack of adequate dentition. *Weak bolus formation, control and AP transition with semi soft and regular textures. Pt unable to masticated 1/2 cookie *Pt's OME and DKS were noted to be WFL Pharyngeal Impairment Source: The Modified Barium Swallow Impairment Profile (MBSImP??) Soft Palate No bolus between soft palate & pharyngeal wall Elevation Laryngeal Elevation Part.sup.move.thyroid cart/part.approx.arytenoids to epiglot.petiole Anterior Hyoid Partial anterior movement Excursion Epiglottic Movement Complete inversion Laryngeal Vestibular Complete; no air/contrast in laryngeal vestibule Closure Pharyngeal Stripping Present - complete Wave Pharyngoesophageal Complete distention & complete duration; no obstruction Segment Opening of flow Tongue Base Trace column of contrast/air betwn tongue base & post. Retraction pharyngeal wall Pharyngeal Residue Complete pharyngeal clearance Additional *Cricopharyngeal bar noted; did not interfere with Pharyngeal bolus flow Impairment *Weak base of tongue strength with partial hyolaryngeal Observations elevation and movement *Epiglottis fully inverted with good seal of the laryngeal vestibule *No laryngeal penetration or tracheal aspiration observed *Minimal to no pharyngeal residual post swallows observed A/P View Textures Administered Trials Presented Thin Liquid via Cup (IDDSI 0) The IDDSI Framework Protocol: IDDSI.1 A/P View Observations Pharyngeal Complete Contraction Esophageal Clearance Complete clearance; esophageal coating Upright Position Vocal Fold Function Good Esophageal Function Narrowing Additional A-P *No retention of contrast observed Observations *Pt's esophagus narrowed significantly around the aortic bulb. This narrowing slowed the flow of liquid above the bulb. Eventually all liquid cleared to the stomach as expected Clinical Impressions Dysphagia Type Oral,Pharyngeal,Esophageal Findings Pt demonstrated oral, pharyngeal and esophageal dysphagia ORAL PHASE (moderate): Pt had an ill-fitting lower denture in need of cleaning. She had no upper denture. Mastication was noted to be anterior munching. She was unable to chew a cookie with barium, spitting most of it out. This may be related to lack of adequate dentition. Overall weak bolus formation, control and AP transition with semi soft and regular textures. Pt unable to masticated 1/2 cookie PHARYNGEAL PHASE (mild): Weak base of tongue strength with partial hyolaryngeal elevation and movement, epiglottis fully inverted with good seal of the laryngeal vestibule, no laryngeal penetration or tracheal aspiration observed, minimal to no residual post swallows observed ESOPHAGEAL PHASE (WFL): No retention of contrast observed. Pt's esophagus narrowed significantly around the aortic bulb, which caused the liquid to pool above the bulb. Eventually all liquid cleared to the stomach as expected OF NOTE: Very little background information was received prior to the pt's MBSS. Pt's current diet texture and liquids are most appropriate for this pt IF the pt receiving assisted feeding, the rate of the food intake is critical given the narrowed esophagus at aortic bulb. Fast feeding would result in foods stacking within the esophagus and could result in coughing during meals Slow assisted feeding is recommended to allow bolus flow to the stomach Rehabilitation Poor Potential Patient Appropriate No: Not a candidate secondary to dementia for Therapy Recommendations Diet Liquids Order Thin (IDDSI 0) Diet Order Pureed (IDDSI 4) Medication Crushed in Carrier Recommendation Aspiration Precautions Recommended Upright at 90 Degrees,Frequent Rest Periods,Small Bites Precautions /Sips Additional Slow presentation/feeding of food to pt Precautions Treatment Plan Therapy Strategy Sitting Upright (90 deg),Small Bites and Sips Recommendations
== END ==
PROVIDERS: PCP Internal Medicine; Referring Provider Registered Nurse; Visit Provider Registered Nurse
DX: R13.12 Dysphagia, oropharyngeal phase (principal)
CPT/HCPCS: 74230; 92611

== ENCOUNTER 2024-12-31 16:55 | Emergency (ER) | payer MEDICARE, MEDICAID, SELFPAY ==
[2024-02-01 21:48] VITALS: BMI 27.3
[2024-12-31] VITALS (23 sets, daily range): BP systolic 102–170; BP diastolic 58–84; PULSE 58–119; RESP 15–28; TEMP 36.6; O2SAT 94–99
--- NOTE | 2024-12-31 17:08 | EKG_ITS ---
[address] [address] [address], [place] [address] Test Date: 2024-12-31 Pat Name: Tiffany Yanez Department: Room: Gender: Female Photographer News: KAYLA : 1945 Requested By: Order Number: [id number] Reading MD: Albino Mc Measurements Intervals [place] Rate: 60 P: 8 [place]: 166 QRS: -20 QRSD: 76 T: 10 QT: 400 QTc: 400 Interpretive Statements Normal sinus rhythm Nonspecific ST abnormality Electronically Signed On 01-12-2025 8:45:09 PDT by Albino Mc
--- NOTE | 2024-12-31 17:09 | DI.RAD.S_ITS ---
PROCEDURE: XR CHEST 1V INDICATIONS: Chest Pain TECHNIQUE: One view of the chest was acquired. COMPARISON: [facility], CR, XR CHEST 1V, 02/01/2024, 16:51. FINDINGS: Surgical changes and devices: None. Lungs and pleura: Large hiatal hernia in the left thorax. Associated atelectasis. Diffuse chronic interstitial changes are present. Atherosclerotic vascular calcification noted in the aortic arch. Mediastinum: Mediastinal contours appear normal. Heart size is normal. Bones and chest wall: No suspicious bony lesions. Overlying soft tissues appear unremarkable. IMPRESSION: Stable large left-sided hiatal hernia. Minimal bibasilar atelectasis and or infiltrate Approved by: Byron Hill M.D. on 12/31/2024 at 17:22
--- NOTE | 2024-12-31 17:29 | PC.NURSE ---
done by mirta Quezada
--- NOTE | 2024-12-31 17:30 | PC.NURSE ---
2 unsuccessful IV attempts, notified nurse.
[2024-12-31 17:40] LABS: Add Manual Diff / Slide Review NO; Hematocrit 39.2 % (36-46); Hemoglobin 13.3 g/dL (12.0-16.0); Lymphocytes Absolute Auto 1500 /uL (1100-4500); Mean Corpuscular HGB Conc 33.8 % (30-36); Mean Corpuscular Hemoglobin 32.1 PG (26-34); Mean Corpuscular Volume 95.0 fL (80-100); Platelet Count 186 X10^3/uL (150-400)
[2024-12-31 17:42] LABS: INR 1.0 (0.9-1.3); Prothrombin Time 11.1 SECONDS (9.4-12.5)
[2024-12-31 17:45] LABS: PTT Partial Thromboplastin Tim 35 SECONDS (25.1-36.5)
[2024-12-31 17:48] LABS: Alanine Aminotransferase 12 IU/L (<35); Albumin 4.0 g/dL (3.5-5.0); Albumin Globulin Ratio 1.5 (1.0-2.8); Alkaline Phosphatase 71 U/L (38-126); Blood Urea Nitrogen 20 mg/dL (7-17); Calcium 8.9 mg/dL (8.4-10.2); Carbon Dioxide 27 mmol/L (22-32); Chloride 103 mmol/L (98-107); Creatine Kinase 38 U/L (30-135); Estimated Glomerular Filt Rate > 60 mL/min (>60); Globulin 2.6 g/dL (1.7-4.1); Glucose 100 mg/dL (70-99); HEMOLYSIS < 15 (0-50); Lipase 163 U/L (23-300); Magnesium 2.0 mg/dL (1.6-2.3); Potassium 4.6 mmol/L (3.4-5.1); Sodium 136 mmol/L (137-145); Total Protein 6.6 g/dL (6.3-8.2)
--- NOTE | 2024-12-31 17:55 | PC.NURSE ---
POLST form at bedside; family requesting workup.
[2024-12-31 18:00] LABS: NT-proBNP (BNP-Adult 18+) 88 pg/mL (<450); Troponin I < 0.012 ng/mL (0.01-0.034)
--- NOTE | 2024-12-31 19:11 | DI.CT.S_ITS ---
PROCEDURE: CT HEAD/BRAIN WO CON INDICATIONS: syncope TECHNIQUE: Noncontrast 4.5 mm thick angled axial sections acquired from the foramen magnum to the vertex, with coronal and sagittal reformats. For radiation dose reduction, the following was used: automated exposure control, adjustment of mA and/or kV according to patient size. COMPARISON: [facility], CT, CT HEAD/BRAIN WO CON, 09/04/2024, 3:15. FINDINGS: CSF spaces: Basal cisterns are patent. No extra-axial fluid collections. Ventricles are normal in size and shape. Brain: No midline shift. No intracranial mass effect or hemorrhage. Jain- white matter interface is normal. Moderate atrophy and confluent white matter chronic ischemic change. Lacunar old infarct left caudate nucleus Skull and face: Calvarium and visualized facial bones are intact, without suspicious lesions. Sinuses: Visualized sinuses and mastoids are clear. IMPRESSION: Atrophy and confluent white matter chronic ischemic change. No intracranial hemorrhage or mass effect. 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 on 12/31/2024 at 18:46
--- NOTE | 2024-12-31 19:22 | PC.NURSE ---
RN attempted to reach [facility] twice with no answer; VM left requesting call back.
--- NOTE | 2024-12-31 19:58 | PC.NURSE ---
attempted to contact Hannah from different number than one listed on website [email or web address]. VM left.
--- NOTE | 2024-12-31 20:38 | PC.NURSE ---
Tatiana from [facility] called to clarify situation. States pt was snoozing in her chair which is normal for patient. States witnessed full body clonic-tonic seizure lasting 7 minutes. Pt was placed on the ground, no injuries sustained. Full body movement ceased and we were going to start CPR but then she started to breathe again. States by the time EMS arrived pt was back at baseline.
--- NOTE | 2024-12-31 20:39 | PC.NURSE ---
Pt reports feeling mildly dizzy while laying down and sitting. Pt assisted with standing. Pt does not ambulate on own per daughter
--- NOTE | 2024-12-31 21:04 | ED.GENADULT ---
HPI - General Adult General Chief complaint: Syncope Stated complaint: Syncope Time Seen by Provider: 12/31/24 19:11 Source: patient Mode of arrival: EMS History of Present Illness HPI narrative: 79-year-old female resident of [facility], suspected by staff to have possible seizure activity, details unclear. No loss of consciousness. No known history of seizure. No recent trauma or injury. History of dementia, previously lived with daughter, then was resident of [facility] January 2024, moved 5 months ago to [facility]. Per verbal report from RN phone call to [facility] nursing, apparently there was a suspected 7 minutes of tonic-clonic seizure-like activity noted at their facility. Then quick recovery without specific treatment, no reported confusion after the event. Unclear if any incontinence, or if that would have been new. No injuries. No history of seizure disorder. No new medications. Related Data Previous Rx's ?Medication ?Instructions ?Recorded acetaminophen 325 mg tablet 650 mg (2 x 325 mg) PO Q6H PRN 02/04/24 Fever/Mild Pain (1-3) #60 tabs calcium carbonate 1,000 mg (5 x 200 mg calcium (500 02/04/24 mg)) PO Q4HR PRN Dyspepsia #30 tabs hydrocodone 5 mg-acetaminophen 325 1 tab PO Q4HR PRN Pain, Moderate 02/04/24 mg tablet (4-6) #40 tabs lisinopril 10 mg tablet 10 mg PO DAILY #30 tabs 02/04/24 naproxen 250 mg tablet 250 mg PO BIDWM #60 tabs 02/04/24 pantoprazole 20 mg tablet,delayed 20 mg PO 0700 #90 tabs 02/04/24 release Allergies Allergy/AdvReac Type Severity Reaction Status Date / Time Penicillins Allergy Severe Anaphylaxis Verified 11/05/24 00:22 Sulfa (Sulfonamide Allergy Severe ANAPHYLAXIS Verified 11/05/24 00:22 Antibiotics) Patient History Medical History Palpitations H/O: HTN (hypertension) Surgical History No pertinent past surgical history Family History Father Cardiac disease Mother No significant medical problems Social History household members: family Smoking Status: Former smoker Smoking Status: Former smoker alcohol intake frequency: holidays/special occasions only Exam Narrative Exam Narrative: GENERAL: Well-developed patient, in mild distress. HEAD: Atraumatic. Normocephalic. EYES: Pupils equal round and reactive. Extraocular motions intact. No scleral icterus. No injection or drainage. ENT: Nose without bleeding, purulent drainage. Throat without erythema, tonsillar hypertrophy or exudate. Airway patent. NECK: Trachea midline. Non tender CARDIOVASCULAR: Regular rate and rhythm without murmurs, gallops, or rubs. RESPIRATORY: Clear to auscultation. Breath sounds equal bilaterally. No wheezes, rales, or rhonchi. GASTROINTESTINAL: Abdomen soft, non-tender, nondistended. EXTREMITIES: No edema or joint tenderness. BACK: Nontender without deformity or crepitance. No flank tenderness. NEURO: AOx3. Motor functions grossly nonfocal. SKIN: No rash or erythema of visible areas Initial Vital Signs Initial Vital Signs: Vital Signs Pulse Rate 65 12/31/24 16:58 Pulse Oximetry 97 12/31/24 16:58 Course Orders Ordered: ED Orders 12/31/24 17:09 XR chest 1V Stat EKG-12 Lead Stat 12/31/24 17:26 Complete Blood Count AUTO DIFF Stat Comprehensive Metabolic Panel Stat Lipase Stat Magnesium Stat NT-proBNP (BNP-Adult 18+) Stat PTT Partial Thromboplastin Enrique Stat Prothrombin Time INR Stat Troponin & CK Cardiac Panel Stat 12/31/24 19:11 CT head/brain wo con Stat Vital Signs Vital signs: Vital Signs - 8 hr 12/31/24 17:30 12/31/24 17:53 12/31/24 17:53 Pulse Rate 79 69 Pulse Rate [Orthostatic Lying] Pulse Rate [Orthostatic Sitting] Pulse Rate [Orthostatic Standing] Respiratory Rate Blood Pressure 170/81 H Blood Pressure [Orthostatic Lying] Blood Pressure [Orthostatic Sitting] Blood Pressure [Orthostatic Standing] Pulse Oximetry 94 Oxygen Delivery Method 12/31/24 18:00 12/31/24 18:00 12/31/24 18:30 Pulse Rate 65 59 L Pulse Rate [Orthostatic Lying] Pulse Rate [Orthostatic Sitting] Pulse Rate [Orthostatic Standing] Respiratory Rate Blood Pressure 169/76 H Blood Pressure [Orthostatic Lying] Blood Pressure [Orthostatic Sitting] Blood Pressure [Orthostatic Standing] Pulse Oximetry 99 99 Oxygen Delivery Method 12/31/24 18:31 12/31/24 18:31 12/31/24 19:00 Pulse Rate 60 68 Pulse Rate [Orthostatic Lying] Pulse Rate [Orthostatic Sitting] Pulse Rate [Orthostatic Standing] Respiratory Rate 23 Blood Pressure 152/67 H Blood Pressure [Orthostatic Lying] Blood Pressure [Orthostatic Sitting] Blood Pressure [Orthostatic Standing] Pulse Oximetry 99 98 Oxygen Delivery Method 12/31/24 19:01 12/31/24 19:01 12/31/24 19:36 Pulse Rate 58 L 65 Pulse Rate [Orthostatic Lying] Pulse Rate [Orthostatic Sitting] Pulse Rate [Orthostatic Standing] Respiratory Rate 22 Blood Pressure 168/73 H Blood Pressure [Orthostatic Lying] Blood Pressure [Orthostatic Sitting] Blood Pressure [Orthostatic Standing] Pulse Oximetry Oxygen Delivery Method 12/31/24 19:42 12/31/24 19:42 12/31/24 20:00 Pulse Rate 62 64 Pulse Rate [Orthostatic Lying] Pulse Rate [Orthostatic Sitting] Pulse Rate [Orthostatic Standing] Respiratory Rate 19 18 Blood Pressure 157/71 H Blood Pressure [Orthostatic Lying] Blood Pressure [Orthostatic Sitting] Blood Pressure [Orthostatic Standing] Pulse Oximetry 99 98 Oxygen Delivery Method 12/31/24 20:00 12/31/24 20:27 12/31/24 20:27 Pulse Rate 64 Pulse Rate [Orthostatic Lying] Pulse Rate [Orthostatic Sitting] Pulse Rate [Orthostatic Standing] Respiratory Rate 18 Blood Pressure 123/58 L 140/67 Blood Pressure [Orthostatic Lying] Blood Pressure [Orthostatic Sitting] Blood Pressure [Orthostatic Standing] Pulse Oximetry 97 Oxygen Delivery Method 12/31/24 20:30 12/31/24 20:30 12/31/24 20:32 Pulse Rate 101 H 119 H Pulse Rate [Orthostatic Lying] Pulse Rate [Orthostatic Sitting] Pulse Rate [Orthostatic Standing] Respiratory Rate Blood Pressure 133/71 Blood Pressure [Orthostatic Lying] Blood Pressure [Orthostatic Sitting] Blood Pressure [Orthostatic Standing] Pulse Oximetry 98 Oxygen Delivery Method 12/31/24 20:32 12/31/24 20:38 12/31/24 21:00 Pulse Rate 75 Pulse Rate [Orthostatic Lying] 64 Pulse Rate [Orthostatic Sitting] 107 H Pulse Rate [Orthostatic Standing] 118 H Respiratory Rate 20 Blood Pressure 132/83 Blood Pressure [Orthostatic Lying] 140/67 Blood Pressure [Orthostatic Sitting] 133/71 Blood Pressure [Orthostatic Standing] 132/83 Pulse Oximetry 96 Oxygen Delivery Method 12/31/24 21:00 12/31/24 21:30 12/31/24 21:30 Pulse Rate 70 Pulse Rate [Orthostatic Lying] Pulse Rate [Orthostatic Sitting] Pulse Rate [Orthostatic Standing] Respiratory Rate 18 Blood Pressure 102/59 L 131/68 Blood Pressure [Orthostatic Lying] Blood Pressure [Orthostatic Sitting] Blood Pressure [Orthostatic Standing] Pulse Oximetry 97 Oxygen Delivery Method Room Air 12/31/24 22:00 12/31/24 22:00 12/31/24 22:30 Pulse Rate 89 67 Pulse Rate [Orthostatic Lying] Pulse Rate [Orthostatic Sitting] Pulse Rate [Orthostatic Standing] Respiratory Rate 15 19 Blood Pressure 122/65 Blood Pressure [Orthostatic Lying] Blood Pressure [Orthostatic Sitting] Blood Pressure [Orthostatic Standing] Pulse Oximetry 97 99 Oxygen Delivery Method Room Air Room Air 12/31/24 22:30 12/31/24 23:00 12/31/24 23:00 Pulse Rate 73 Pulse Rate [Orthostatic Lying] Pulse Rate [Orthostatic Sitting] Pulse Rate [Orthostatic Standing] Respiratory Rate 28 H Blood Pressure 118/64 125/81 Blood Pressure [Orthostatic Lying] Blood Pressure [Orthostatic Sitting] Blood Pressure [Orthostatic Standing] Pulse Oximetry 98 Oxygen Delivery Method Room Air Medical Decision Making Lab Data Lab results reviewed: Yes I reviewed the patient's lab results. Lab results narrative: White blood cell count 4900, hemoglobin 13.3, platelets 186,000. Glucose 100. BUN 20 with creatinine 0.88. Serum CO2 27 normal, not consistent with recent reported long duration seizure. Sodium 136, potassium 4.6. Liver functions normal. Lipase normal. Troponin negative/unmeasurable. 12/31/24 17:26 12/31/24 17:26 Labs: Lab Results 12/31/24 Range/Units 17:26 WBC 4.9 (4.5-11.0) X10^3/uL RBC 4.13 (4.0-5.2) X10^6/uL Hgb 13.3 (12.0-16.0) g/dL Hct 39.2 (36-46) % MCV 95.0 (80-100) fL MCH 32.1 (26-34) PG MCHC 33.8 (30-36) % RDW 13.3 (11.6-14.8) % Plt Count 186 (150-400) X10^3/uL Neut % (Auto) 57.6 (50-75) % Lymph % (Auto) 30.9 (25-40) % [place] % (Auto) 7.8 (3-14) % Eos % (Auto) 3.2 (2-4) % Baso % (Auto) 0.5 (0-2) % Neut # (Auto) 2800 (3306-0084) /uL Lymph # (Auto) 1500 (0293-2502) /uL [place] # (Auto) 400 (0-900) /uL Eos # (Auto) 200 (0-450) /uL Baso # (Auto) 0 (0-100) /uL PT 11.1 (9.4-12.5) SECONDS INR 1.0 (0.9-1.3) APTT 35 (25.1-36.5) SECONDS Sodium 136 L (137-145) mmol/L Potassium 4.6 (3.4-5.1) mmol/L Chloride 103 (98-107) mmol/L Carbon Dioxide 27 (22-32) mmol/L BUN 20 H (7-17) mg/dL Creatinine 0.88 (0.52-1.04) mg/dL Estimated GFR > 60 (>60) mL/min BUN/Creatinine Ratio 22.7 H (6-22) Glucose 100 H (70-99) mg/dL Calcium 8.9 (8.4-10.2) mg/dL Magnesium 2.0 (1.6-2.3) mg/dL Total Bilirubin 0.7 (0.2-1.3) mg/dL AST 19 (14-36) IU/L ALT 12 (<35) IU/L Alkaline Phosphatase 71 (38-126) U/L Total Creatine Kinase 38 (30-135) U/L Troponin I < 0.012 (0.01-0.034) ng/mL NT-Pro-B Natriuret Pep 88 (<450) pg/mL Total Protein 6.6 (6.3-8.2) g/dL Albumin 4.0 (3.5-5.0) g/dL Globulin 2.6 (1.7-4.1) g/dL Albumin/Globulin Ratio 1.5 (1.0-2.8) Lipase 163 (23-300) U/L Imaging Data Chest x-ray: Radiologist's Impression: [address] [address] XRay Report Signed Patient: Tiffany Yanez MR#: [id number] : 1945 Acct:[id number] Age/Sex: 79 / F Date of Service: 12/31/24 Loc: ED Accession Number: [id number] Procedure: XR chest 1V Ordering Provider: Linda Espana MD PROCEDURE: XR CHEST 1V INDICATIONS: Chest Pain TECHNIQUE: One view of the chest was acquired. COMPARISON: [facility], , XR CHEST 1V, 02/01/2024, 16:51. FINDINGS: Surgical changes and devices: None. Lungs and pleura: Large hiatal hernia in the left thorax. Associated atelectasis. Diffuse chronic interstitial changes are present. Atherosclerotic vascular calcification noted in the aortic arch. Mediastinum: Mediastinal contours appear normal. Heart size is normal. Bones and chest wall: No suspicious bony lesions. Overlying soft tissues appear unremarkable. IMPRESSION: Stable large left-sided hiatal hernia. Minimal bibasilar atelectasis and or infiltrate Approved by: Byron Hill M.D. on 12/31/2024 at 17:22 CT scan - head: Radiologist's Impression: [address] [address] [address] Scan Report Signed Patient: Tiffany Yanez MR#: [id number] : 1945 Acct:[id number] Age/Sex: 79 / F Date of Service: 12/31/24 Loc: ED Accession Number: [id number] Procedure: CT head/brain wo con Ordering Provider: Antwan Abreu MD PROCEDURE: CT HEAD/BRAIN WO CON INDICATIONS: syncope TECHNIQUE: Noncontrast 4.5 mm thick angled axial sections acquired from the foramen magnum to the vertex, with coronal and sagittal reformats. For radiation dose reduction, the following was used: automated exposure control, adjustment of mA and/or kV according to patient size. COMPARISON: [facility], CT, CT HEAD/BRAIN WO CON, 09/04/2024, 3:15. FINDINGS: CSF spaces: Basal cisterns are patent. No extra-axial fluid collections. Ventricles are normal in size and shape. Brain: No midline shift. No intracranial mass effect or hemorrhage. Jain-white matter interface is normal. Moderate atrophy and confluent white matter chronic ischemic change. Lacunar old infarct left caudate nucleus Skull and face: Calvarium and visualized facial bones are intact, without suspicious lesions. Sinuses: Visualized sinuses and mastoids are clear. IMPRESSION: Atrophy and confluent white matter chronic ischemic change. No intracranial hemorrhage or mass effect. 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 on 12/31/2024 at 18:46 ECG Data Attestation: I personally reviewed and interpreted this ECG as follows: Interpretation: 1708, normal sinus rhythm with rate of 60. No obvious ST segment elevation or depression changes. MO 166, QRS 76, QTC 400. [facility] Narrative Medical decision making narrative: 79-year-old female resident of [facility] with history of dementia had 7 minutes duration of shakiness noted by staff. But no incontinence of urine and stool, no postictal change in her baseline confusion. No known history of seizure disorder. She seems recovered, at baseline, daughter at bedside thinks she is at her baseline. CT head and labs sent from triage. CT head shows old stroke change, no acute changes. See radiology report. Chest x-ray shows no acute changes. See radiology report. Lab data: White blood cell count 4900, hemoglobin 13.3, platelets [id number]. Glucose 100. BUN 20 with creatinine 0.88. Serum CO2 27 normal, not consistent with recent reported long duration seizure. Sodium 136, potassium 4.6. Liver functions normal. Lipase normal. Troponin negative/unmeasurable. Glucose normal. White blood cell count normal. Serum CO2 27 not decreased as would be expected with recent prolonged seizure activity in a nursing facility adjacent to this hospital. Electrolytes unremarkable. Unclear cause of reported shakiness. Might have been volitional. Could be dystonic reaction but no obvious medications new or changed. Could have been rigors but no obvious sources of infection, afebrile, no similar shakiness like activity witnessed during multiple hours here. Antiseizure medications not indicated at this time. We discussed further workup that might include MRI of the brain, EEG studies, these could be pursued as an outpatient if needed. Daughter at bedside would like patient to return back to [facility], patient would like to go back as well. No further workup for now. Could consider outpatient further workup such as brain MRI and/or EEG. Continue current chornic medication regimen for now. Follow up with PCP advised. Return precautions discussed. Discharge Plan Departure Patient Disposition: Home Clinical Impression: Episode of shaking Activity Restrictions/Additional Instructions: Seven minute episode of shaking at [facility] reported. No loss of consciousness, history of dementia. No incontinence of urine or stool. Quick recovery to baseline. No history of seizure disorder. No medication changes suspicious for dystonic reaction. Close proximity to the hospital, labs were sent, carbon dioxide level normal, not consistent with tonic-clonic seizure activity for 7 minutes reported. Electrolytes unremarkable. No obvious infection. No shaking or similar activity for multiple hours observed in the emergency department. CT head showed old stroke changes but no new stroke or acute changes. Consider MRI of the brain and EEG studies as an outpatient. Referral to neurology capable facility offered, likely not emergently indicated, declined for now by family, can have further workup as needed as an outpatient for now. Continue current chronic medication regimen. Follow up with your PCP this week. Return earlier to this/nearest emergency department for any change worsening symptoms or any concerns prior. Prescriptions: No Action acetaminophen 325 mg Tablet 650 mg PO Q6H PRN (Reason: Fever/Mild Pain (1-3)) Qty: 60 0RF hydrocodone-acetaminophen 5-325 mg Tablet 1 tab PO Q4HR PRN (Reason: Pain, Moderate (4-6)) Qty: 40 0RF naproxen 250 mg Tablet 250 mg PO BIDWM Qty: 60 0RF pantoprazole 20 mg Tablet,Delayed Release (Dr/Ec) 20 mg PO 0700 Qty: 90 0RF lisinopril 10 mg Tablet 10 mg PO DAILY Qty: 30 0RF calcium carbonate 200 mg calcium (500 mg) Tablet,Chewable 1,000 mg PO Q4HR PRN (Reason: Dyspepsia) Qty: 30 0RF Referrals: Tomer Calloway DO [Primary Care Provider, Internal Medicine] Stand Alone Forms: Patient Portal/API
== END 2024-12-31 23:43 | disposition home or self-care (01) ==
PROVIDERS: Emergency Medicine; Emergency Provider Emergency Medicine; PCP Internal Medicine
DX: R25.1 Tremor, unspecified (principal); R07.9 Chest pain, unspecified
CPT/HCPCS: 36415; 70450; 71045; 80053; 82550; 83690; 83735; 83880; 84484; 85025; 85610; 85730; 93005; 99283; 99284

== ENCOUNTER 2025-04-24 02:39 | Emergency (ER) | payer MEDICARE, MEDICAID, SELFPAY ==
[2024-02-01 21:48] VITALS: BMI 27.3
--- NOTE | 2025-04-24 02:38 | DI.RAD.S_ITS ---
PROCEDURE: XR PELVIS 1-2V INDICATIONS: Fall, trauma TECHNIQUE: 1 view(s) of the pelvis acquired. COMPARISON: [facility], , XR PELVIS 1-2V, 02/03/2024, 10:57. FINDINGS AND IMPRESSION: Progressed end-stage arthritic changes of the right hip, with eroded femoral head. Underlying AVN also possible. CT findings separately dictated. No discrepancy from the preliminary report. Dictated by: Kurt Centeno M.D. on 04/24/2025 at 8:30 Approved by: Kurt Centeno M.D. on 04/24/2025 at 8:34
[2025-04-24 02:50] VITALS: BP 201/89; PULSE 71; RESP 20; O2SAT 97
[2025-04-24 03:05] LABS: Add Manual Diff / Slide Review NO; Hematocrit 38.2 % (36-46); Hemoglobin 13.0 g/dL (12.0-16.0); Lymphocytes Absolute Auto 2100 /uL (1100-4500); Mean Corpuscular HGB Conc 33.9 % (30-36); Mean Corpuscular Hemoglobin 32.4 PG (26-34); Mean Corpuscular Volume 95.5 fL (80-100); Platelet Count 221 X10^3/uL (150-400)
[2025-04-24] MEDS: MORPHINE 2 MG/ML INJ IV (03:07)
[2025-04-24] MEDS: KETOROLAC 30 MG/ML VIAL 15 MG IV (03:09)
[2025-04-24 03:40] LABS: Alanine Aminotransferase 12 IU/L (<35); Albumin 4.1 g/dL (3.5-5.0); Albumin Globulin Ratio 1.5 (1.0-2.8); Alkaline Phosphatase 79 U/L (38-126); Blood Urea Nitrogen 23 mg/dL (7-17); Calcium 9.2 mg/dL (8.4-10.2); Carbon Dioxide 25 mmol/L (22-32); Chloride 103 mmol/L (98-107); Creatine Kinase 36 U/L (30-135); Estimated Glomerular Filt Rate > 60 mL/min (>60); Globulin 2.8 g/dL (1.7-4.1); Glucose 78 mg/dL (70-99); HEMOLYSIS < 15 (0-50); Potassium 4.2 mmol/L (3.4-5.1); Sodium 136 mmol/L (137-145); Total Protein 6.9 g/dL (6.3-8.2)
--- NOTE | 2025-04-24 03:53 | DI.CT.S_ITS ---
PROCEDURE: CT HIP RIGHT WITHOUT CON INDICATIONS: Right hip trauma TECHNIQUE: Noncontrast 3 mm axial sections acquired through the bony pelvis. Additional 3 mm axial sections acquired through the symptomatic hip joint, with coronal and sagittal reformats. COMPARISON: [facility], CR, XR PELVIS 1-2V, 04/24/2025, 2:37. FINDINGS: Image quality: Diagnostic Bones: Severe arthritic changes of the right hip, with mostly eroded femoral head and multiple intra-articular and periarticular bone fragments. No pubic diastasis. Soft tissues: Moderate joint effusion. Increased colonic fecal loading. Vascular calcifications. IMPRESSION: Severe arthritic changes of the right hip, with mostly eroded femoral head. Intra-articular and periarticular bone fragments are present. No displaced femoral neck fracture or pelvic ring disruption. No significant discrepancy in the refer limb report. Dictated by: Kurt Centeno M.D. on 04/24/2025 at 7:56 Approved by: Kurt Centeno M.D. on 04/24/2025 at 7:59
--- NOTE | 2025-04-24 05:06 | ED.FALL ---
HPI - Fall General Chief Complaint: Fall Stated Complaint: Right hip pain Time Seen by Provider: 04/24/25 02:42 Source: patient Mode of arrival: EMS History of Present Illness HPI Narrative: 79-year-old female patient with a history of hypertension and dementia who was found down on the ground at her SNF complaining of right-sided hip pain only. No head injury or loss of consciousness. Related Data Previous Rx's ?Medication ?Instructions ?Recorded acetaminophen 325 mg tablet 650 mg (2 x 325 mg) PO Q6H PRN 02/04/24 Fever/Mild Pain (1-3) #60 tabs calcium carbonate 1,000 mg (5 x 200 mg calcium (500 02/04/24 mg)) PO Q4HR PRN Dyspepsia #30 tabs hydrocodone 5 mg-acetaminophen 325 1 tab PO Q4HR PRN Pain, Moderate 02/04/24 mg tablet (4-6) #40 tabs lisinopril 10 mg tablet 10 mg PO DAILY #30 tabs 02/04/24 naproxen 250 mg tablet 250 mg PO BIDWM #60 tabs 02/04/24 pantoprazole 20 mg tablet,delayed 20 mg PO 0700 #90 tabs 02/04/24 release Allergies Allergy/AdvReac Type Severity Reaction Status Date / Time Penicillins Allergy Severe Anaphylaxis Verified 11/05/24 00:22 Sulfa (Sulfonamide Allergy Severe ANAPHYLAXIS Verified 11/05/24 00:22 Antibiotics) Review of Systems Review of Systems ROS Unobtainable: All systems reviewed & are unremarkable except as noted in HPI and below Musculoskeletal Musculoskeletal: Reports as per HPI Patient History Medical History Palpitations H/O: HTN (hypertension) Surgical History No pertinent past surgical history Family History Father Cardiac disease Mother No significant medical problems Social History household members: family alcohol intake frequency: holidays/special occasions only Exam Narrative Exam Narrative: General: Alert and conversant. Mild distress. Appears well nourished and well hydrated Craniofacial: No evidence of trauma. Nontender and no swelling. Eyes: PERRLA EOMI conjunctiva clear HEENT: Oropharynx clear with no swelling, exudate or asymmetry of the pharynx. Nares clear. No sinus tenderness Neck: No tenderness or adenopathy. No meningismus. Lungs: Clear to auscultation with good air movement. No wheezing, rales or rhonchi. No respiratory distress Cardiac: Regular rate and rhythm with no appreciable murmur or gallop Abdomen: Soft, nontender with no distention or masses. Normal bowel sounds. No rebound or guarding Musculoskeletal: Tenderness to palpation and gentle range of motion of the right hip. There is shortening. Otherwise Exam of the extremities, axial spine and ribcage reveals no deformity, bony tenderness or swelling. Range of motion intact Neuro: Alert Cranial nerves, motor, sensory and cerebellar all grossly intact. No focal deficit Skin: Warm and normal color. No rashes Psychological: Normal affect and interaction. No evidence of delusion or psychosis. Normal mood. Initial Vital Signs Initial Vital Signs: Vital Signs Pulse Rate 71 04/24/25 02:50 Respiratory Rate 20 04/24/25 02:50 Blood Pressure 201/89 H 04/24/25 02:50 Pulse Oximetry 97 04/24/25 02:50 Oxygen Delivery Method Room Air 04/24/25 02:50 Course Orders Ordered: ED Orders 04/24/25 02:38 XR pelvis 1-2V Stat 04/24/25 02:55 CBC Auto Diff [Complete Blood Count AUTO DIFF] Stat CMP [Comprehensive Metabolic Panel] Stat CPK [Creatine Kinase] Stat 04/24/25 03:53 Ct Hip right without con Stat Discontinued Medications Ketorolac Tromethamine (Ketorolac 30 Mg/Ml Vial) 15 mg IV NOW ONE Stop: 04/24/25 03:01 Last Admin: 04/24/25 03:09 Dose: 15 mg Documented By: JOSSUE Morphine Sulfate (Morphine 2 Mg/Ml Inj) 2 mg IV NOW ONE Stop: 04/24/25 03:01 Last Admin: 04/24/25 03:07 Dose: 2 mg Documented By: JOSSUE Vital Signs Vital signs: Vital Signs - 8 hr 04/24/25 02:50 Pulse Rate 71 Respiratory Rate 20 Blood Pressure 201/89 H Pulse Oximetry 97 Oxygen Delivery Method Room Air MDM - Fall Lab Data Attestation: I reviewed the patient's lab results. (CBC and CMP essentially unremarkable) 04/24/25 02:55 04/24/25 02:55 Labs: Lab Results 04/24/25 Range/Units 02:55 WBC 5.9 (4.5-11.0) X10^3/uL RBC 4.00 (4.0-5.2) X10^6/uL Hgb 13.0 (12.0-16.0) g/dL Hct 38.2 (36-46) % MCV 95.5 (80-100) fL MCH 32.4 (26-34) PG MCHC 33.9 (30-36) % RDW 12.9 (11.6-14.8) % Plt Count 221 (150-400) X10^3/uL Neut % (Auto) 49.6 L (50-75) % Lymph % (Auto) 35.4 (25-40) % [place] % (Auto) 10.6 (3-14) % Eos % (Auto) 3.9 (2-4) % Baso % (Auto) 0.5 (0-2) % Neut # (Auto) 2900 (8425-9618) /uL Lymph # (Auto) 2100 (6409-5586) /uL [place] # (Auto) 600 (0-900) /uL Eos # (Auto) 200 (0-450) /uL Baso # (Auto) 0 (0-100) /uL Sodium 136 L (137-145) mmol/L Potassium 4.2 (3.4-5.1) mmol/L Chloride 103 (98-107) mmol/L Carbon Dioxide 25 (22-32) mmol/L BUN 23 H (7-17) mg/dL Creatinine 0.70 (0.52-1.04) mg/dL Estimated GFR > 60 (>60) mL/min BUN/Creatinine Ratio 32.9 H (6-22) Glucose 78 (70-99) mg/dL Calcium 9.2 (8.4-10.2) mg/dL Total Bilirubin 0.4 (0.2-1.3) mg/dL AST 19 (14-36) IU/L ALT 12 (<35) IU/L Alkaline Phosphatase 79 (38-126) U/L Total Creatine Kinase 36 (30-135) U/L Total Protein 6.9 (6.3-8.2) g/dL Albumin 4.1 (3.5-5.0) g/dL Globulin 2.8 (1.7-4.1) g/dL Albumin/Globulin Ratio 1.5 (1.0-2.8) Imaging Data Right hip and pelvis: Attestation: I personally reviewed and interpreted this imaging study as follows: (Severe degenerative joint disease of the right hip with no fracture evident) CT bony pelvis: Radiologist's Impression: Impression: No fracture is identified. The advanced right hip degenerative changes could be secondary to osteoarthritis alone or underlying AVN MDM Narrative Medical decision making narrative: Patient was found down on the floor at her nursing facility with an apparent unwitnessed fall. Her main complaint was right hip pain. She has chronic hip pain and severe degenerative changes of the right hip and is nonambulatory. Her daughter arrived to help explain that. The imaging reveals no acute fracture injury and her physical exam is unremarkable for trauma otherwise that will might need imaging. Her diagnosis is accidental ground level fall with right hip contusion. Patient is discharged back to snf facility with supportive care and current medications as prescribed along with [id number] pain medication as needed. Follow up with primary care. Discharge Plan Departure Patient Disposition: SNF Clinical Impression: Accidental fall, Contusion of hip, right Activity Restrictions/Additional Instructions: Plan: Fall prevention. Otherwise [id number] and prescription pain medicine as prescribed by your provider as needed. Prescriptions: No Action acetaminophen 325 mg Tablet 650 mg PO Q6H PRN (Reason: Fever/Mild Pain (1-3)) Qty: 60 0RF hydrocodone-acetaminophen 5-325 mg Tablet 1 tab PO Q4HR PRN (Reason: Pain, Moderate (4-6)) Qty: 40 0RF naproxen 250 mg Tablet 250 mg PO BIDWM Qty: 60 0RF pantoprazole 20 mg Tablet,Delayed Release (Dr/Ec) 20 mg PO 0700 Qty: 90 0RF lisinopril 10 mg Tablet 10 mg PO DAILY Qty: 30 0RF calcium carbonate 200 mg calcium (500 mg) Tablet,Chewable 1,000 mg PO Q4HR PRN (Reason: Dyspepsia) Qty: 30 0RF
== END 2025-04-24 06:40 | disposition home or self-care (01) ==
PROVIDERS: Emergency Provider Emergency Medicine; PCP Internal Medicine
DX: S70.01XA Contusion of right hip, initial encounter (principal); W18.30XA Fall on same level, unspecified, initial encounter; Y92.129 Unspecified place in nursing home as the place of occurrence of the external cause
CPT/HCPCS: 36415; 72170; 73700; 80053; 82550; 85025; 96374; 96375; 99284; J1885; J2270